=== PATIENT | male | born 1955 | race Caucasian/White ===

== ENCOUNTER → 2016-07-27 | Outpatient (CLI) | payer OTHER ==
--- NOTE | 2016-07-27 13:51 | Diagnostic Imaging Report ---
EXAMINATION: Three views of the right knee. INDICATION: Right knee pain. History of knee dislocation. FINDINGS: There are osteoarthritic changes, most prominent in the medial compartment, with prominent osteophytes and moderate joint space narrowing. There is mild joint space narrowing in the lateral compartment. The patellofemoral compartment is relatively spared. There is suggestion of a minimal suprapatellar effusion. Mild ossification along the distal quadriceps tendon insertion site is seen. No acute fracture, dislocation, or radiopaque foreign body. Prominent vascular calcifications are seen. IMPRESSION: Moderate osteoarthritic changes, particularly involving the medial compartment. Dictated by: Dictated on workstation # [id number]
== END ==
LOC: RAD 09:33
PROVIDERS: ATTEND Family Medicine
DX: M17.11 Unilateral primary osteoarthritis, right knee (principal)
CPT/HCPCS: 73562

== ENCOUNTER → 2017-10-05 | Outpatient (CLI) | payer OTHER ==
--- NOTE | 2017-10-05 11:02 | Diagnostic Imaging Report ---
EXAM: CT CHEST SCREENING WO INDICATION: 99-oxha-rmsn smoking history. Quit smoking six months ago. COMPARISON: None. FINDINGS: Advanced emphysematous changes in the lungs. There are a couple 0.4 cm solid pulmonary nodules in the right lower lobe. Calcified granulomas in both lungs. No endobronchial lesions. Moderate atherosclerotic calcifications including coronary and aortic. No mediastinal, hilar or axillary lymphadenopathy. Calcified hilar lymph nodes bilaterally. Normal heart size. No pericardial or pleural effusion. No pneumothorax. The visualized upper abdominal contents are grossly unremarkable. No acute osseous findings. IMPRESSION: 1. Solid pulmonary nodules in the right lower lobe measuring up to 0.4 cm. Recommend continued screening with low dose chest CT in 12 months. 2. Advanced emphysematous changes. 3. Evidence of prior granulomatous infection. 4. Moderate atherosclerotic calcifications including coronary. LungRads category: 2. Modifier: S. Please note that the low-dose technique of this chest CT is of non-diagnostic quality. This study is only intended for lung cancer screening of high risk patients. Dictated by: Dictated on workstation # [id number]
== END ==
LOC: RAD 10:13
PROVIDERS: ATTEND Nurse Practitioner Family
DX: R91.1 Solitary pulmonary nodule (principal); J43.9 Emphysema, unspecified; I25.10 Atherosclerotic heart disease of native coronary artery without angina pectoris; Z87.891 Personal history of nicotine dependence; Z86.19 Personal history of other infectious and parasitic diseases

== ENCOUNTER → 2017-11-22 | Emergency (ER) | payer OTHER ==
[~2017-11-22] VITALS: Ht 185.4 cm; Wt 86.6 kg
[~2017-11-22] MED LIST: CEPH500T PO; CEPHALEXIN 250 MG (KEFLEX) CAP PO STA; LIDOCAINE 1% INJ 20 ML 20 ML VIAL INJ ONE
--- OUTSIDE RECORDS SUMMARY | 2017-11-22 01:09 | XMS REPORT ---
Author Author ZAK MEDEIROS [facility] [address] Address [address] [place] [address] Care Team Providers Care Compensation Administrator Name Role Phone ZAK MEDEIROS Unavailable PROBLEMS Unknown Problems ALLERGIES Substance Reaction Event Type Date Status N.K.D.A. Unknown Non Drug Allergy Feb, Unknown SOCIAL HISTORY No smoking Hx information available PLAN OF CARE VITAL SIGNS Height 73 in 2016-03-10 Weight 192.2 lbs 2016-03-10 Temperature 98.8 degrees Fahrenheit 2016-03-10 Heart Rate 64 bpm 2016-03-10 Respiratory Rate 18 2016-03-10 BMI 25.35 kg/m2 2016-03-10 Blood pressure systolic 130 mmHg 2016-03-10 Blood pressure diastolic 78 mmHg 2016-03-10 MEDICATIONS Medication Instructions Dosage Frequency Start Date End Date Duration Status Zithromax Z-Eddie 250 MG Orally Once a day 2 tablets on the first day, then 1 tablet daily for 4 days 24h Feb, Feb, 5 day(s) Active RESULTS No Results PROCEDURES Procedure Date Ordered Related Diagnosis Body Site Office Visit, Est Pt., Level 3 Mar 10, 2016 IMMUNIZATIONS No Known Immunizations
--- NOTE | 2017-11-22 02:39 | ED Lower Extremity ---
General Chief Complaint: Laceration Stated Complaint: LEFT LITTLE TOE LAC Source: patient Exam Limitations: no limitations History of Present Illness Date Seen by Provider: Nov 22, 2017 Time Seen by Provider: 01:25 Initial Comments Here with report of laceration to the left fifth toe underneath. States he is walking out off his porch and got his toe caught on a brick on the corner and cut the underside of the toe. Denies bony injury. Tetanus is up-to-date within the last year. Onset: this morning (approximately one hour ago) Severity: mild Pain/Injury Location: left 5th toe Method of Injury: direct blow, incised Modifying Factors: Improves With Immobilization; Worse With Movement Allergies and Home Medications Allergies Coded Allergies: No Known Drug Allergies (Unverified , 11/22/17) Patient Home Medication List Home Medication List Reviewed: Yes Review of Systems Constitutional: see HPI; No chills, No fever Respiratory: no symptoms reported Cardiovascular: no symptoms reported Skin: see HPI, lesions Past Qgavofq-Xkgpiq-Zkynaf Hx Past Med/Social Hx: Reviewed Nursing Past Med/Soc Hx Patient Social History Alcohol Use: Occasionally Uses Recreational Drug Use: No Smoking Status: Never a Smoker Recent Foreign Travel: No Contact w/Someone Who Travel: No Past Medical History Surgeries: Yes Orthopedic Respiratory: No Cardiac: No Neurological: No Genitourinary: No Gastrointestinal: No Musculoskeletal: No Endocrine: No Cancer: No Family Medical History Reviewed Nursing Family Hx Physical Exam Vital Signs Capillary Refill : Height, Weight, BMI Height: '" Weight: lbs. oz. kg; BMI Method: General Appearance: WD/WN, no apparent distress Cardiovascular: regular rate, rhythm, no murmur Respiratory: lungs clear, normal breath sounds Feet: left foot pain, left foot soft tissue tenderness, left foot other (2 cm laceration at the base of the fifth toe on the undersurface in the crease. Extends from lateral to volar-medial aspect. Distal sensation and circulation intact.) Neurologic/Tendon: normal sensation, normal motor functions Neurologic/Psychiatric: alert, oriented x 3 Skin: normal color, warm/dry Procedures/Interventions Wound Location: Lower Extremities Other Wound Location Left foot fifth toe Wound Length (cm): 2 Wound's Depth, Shape: superficial, linear Wound Explored: contaminated Irrigated w/ Saline (ccs): 50 Betadine Prep?: Yes (Betasept) Anesthesia: 1% Lidocaine Volume Anesthetic (ccs): 4 Wound Debrided: minimal Suture: Prolene Suture Size: 5-0 Number of Sutures: 5 Layer Closure?: 1 Number Deep Layer Sutures: 0 Progress Cleaned with Betasept. Anesthetized with 1 percent lidocaine. Wound closed and covered with antibiotic ointment and dressing. Tolerated procedure well with no complications. Progress/Results/Core Measures Results/Orders My Orders Orders - PRISCA PEREZ MD Lidocaine 1% Inj 20 Ml (Xylocaine 1% Inj (11/22/17 01:30) Progress Progress Note : Progress Note Seen and evaluated. Wound cleaned with Betasept and saline and flushed with clean saline. Closed. Covered with antibiotic and dressing. Keflex 500 mg by mouth. Discharged home with return precautions. Patient verbalize understanding instructions and agreement with plan. Departure Impression Primary Impression: Laceration of left foot Qualified Codes: S91.312A - Laceration without foreign body, left foot, initial encounter Disposition: HOME, SELF-CARE Condition: Improved Departure-Patient Inst. Referrals: FLORES DUBOSE DO (PCP/Family) Primary Care Physician Patient Instructions: Laceration Repair With Stitches (DC) Add. Discharge Instructions: All discharge instructions reviewed with patient and/or family. Voiced understanding. Keep dressing in place until evening. Then remove and rinsed wound thoroughly. He may reapply antibiotic ointment and dressing to wound. Continue this twice daily for the next several days after that and then you may use dry dressing as needed for protection. It is important that he rest her foot over the next few days to decrease chance that sutures will be pulled out. Return in 10-14 days for suture removal. Take medications as directed. You may use ibuprofen and/or Tylenol/acetaminophen per package directions for pain control. Return for worse pain, fever, red streaks up the foot or leg, foul- smelling drainage or other concerns as needed. Scripts Cephalexin (Cephalexin) 500 Mg Tablet 500 MG PO QID, #20 TAB 0 Refills Prov: PRISCA PEREZ MD 11/22/17 PRISCA PEREZ MD Nov 22, 2017 02:39
[2017-11-22 03:12] VITALS: BP 172/93
== END | disposition home or self-care (01) ==
LOC: EDUNIT# 01:01 → ER 01:06
DX: S91.312A Laceration without foreign body, left foot, initial encounter (principal); W23.1XXA Caught, crushed, jammed, or pinched between stationary objects, initial encounter
CPT/HCPCS: 12041

== ENCOUNTER 2017-12-05 17:49 | Emergency (ER) | payer OTHER ==
[~2017-12-05] VITALS: Ht 182.9 cm; Wt 90.7 kg
[~2017-12-05 17:49] MED LIST changes: -CEPHALEXIN 250 MG (KEFLEX) CAP PO STA; -LIDOCAINE 1% INJ 20 ML 20 ML VIAL INJ ONE
[2017-12-05 18:20] VITALS: BP 120/67
== END 2017-12-05 18:21 | disposition home or self-care (01) ==
LOC: EDUNIT# 17:49 → ER 18:00
DX: S91.115D Laceration without foreign body of left lesser toe(s) without damage to nail, subsequent encounter (principal); X58.XXXD Exposure to other specified factors, subsequent encounter

== ENCOUNTER → 2018-10-05 | Outpatient (CLI) | payer OTHER ==
--- NOTE | 2018-10-05 12:08 | Diagnostic Imaging Report ---
INDICATION: Low back pain. Time of exam 10:40 a.m. FINDINGS: Three views of the lumbar spine were obtained. Curvature and alignment is normal prevertebral body heights are well-maintained. No acute compression fracture is seen. There is some degenerative disc disease at multiple levels with marginal spurring and variable disc space narrowing. Aorta is heavily calcified. IMPRESSION: Lumbar spondylosis. No acute bony abnormality is detected. Dictated by: Dictated on workstation # [id number]
--- NOTE | 2018-10-05 13:00 | Diagnostic Imaging Report ---
INDICATION: Low-back pain. Time of exam 10:40 a.m. FINDINGS: Multiple views of the sacrum and coccyx were obtained. Sacral arcuate lines appear to be intact. Sacrococcygeal alignment appears normal. No fractures are seen. IMPRESSION: No acute bony abnormality is detected. Dictated by: Dictated on workstation # [id number]
== END ==
LOC: RAD 10:19
PROVIDERS: ATTEND Family Medicine
DX: M47.816 Spondylosis without myelopathy or radiculopathy, lumbar region (principal); M53.3 Sacrococcygeal disorders, not elsewhere classified
CPT/HCPCS: 72100; 72220

== ENCOUNTER → 2018-10-25 | Outpatient (CLI) | payer OTHER ==
--- NOTE | 2018-10-25 15:16 | Diagnostic Imaging Report ---
TIME OF EXAM: 10/25/2018 11:44 AM REASON FOR EXAM: Lung cancer screening. LUNG CA SCREENING COMPARISON: 10/05/2017. TECHNIQUE: Low-Dose CT helical images obtained through the chest. CTDI vol: 2.22 mGy FINDINGS: Nodules: -- A) 4 mm, indeterminate noncalcified solid right lower lobe nodule (image 124, series 3) -- B) 3 mm, indeterminate noncalcified solid right lower lobe nodule (image 127, series 3) -- C) 4 mm, indeterminate noncalcified solid nodule with surrounding ground-glass opacities in the right middle lobe nodule (image 107, series 3) Lungs: Lung volumes are normal. Centrilobular emphysema is seen throughout the lungs, greatest in the apices. No evidence of pulmonary fibrosis is present. There is no appreciable bronchiectasis. No pulmonary mass or consolidation is present. No central endoluminal airway lesion is seen. Heart and Mediastinum: Heart size is within normal limits. Small amount of coronary calcifications are present. Aortic atherosclerosis is present without aneurysm. No pericardial effusion is present. Mildly prominent mediastinal lymph nodes are again noted. No axillary, supraclavicular, internal mammary, or hilar adenopathy is present by CT size criteria. Normal size and attenuation of the visualized thyroid gland. Pleura: Normal pleural spaces. No effusion or pneumothorax. No pleural nodularity or mass. Abdomen: Included views of the upper abdomen demonstrate no acute abnormality. The liver demonstrates a nodular contour. Bones and soft tissues: Regional skeletal and soft tissue structures are age-appropriate. IMPRESSION: 1. New 4 mm solid nodule with surrounding ground-glass opacities in the right middle lobe. This most likely represents inflammatory or infectious etiology. However, six-month followup chest CT is recommended to document resolution or stability. Additional millimetric pulmonary nodules are unchanged. 2. No thoracic lymphadenopathy. 3. Nodular contour of the liver, which can be seen with cirrhosis. Recommend correlation with LFTs and ultrasound or CT of the liver if clinically indicated. Result code: Category 3: Probably Benign. Follow up: 6-month LDCT. Dictated by: Dictated on workstation # [id number]
== END ==
LOC: RAD 10:51
PROVIDERS: ATTEND Nurse Practitioner Family
DX: Z12.2 Encounter for screening for malignant neoplasm of respiratory organs (principal); R91.1 Solitary pulmonary nodule; K76.89 Other specified diseases of liver; Z87.891 Personal history of nicotine dependence

== ENCOUNTER 2018-11-08 05:36 | Outpatient (CLI) | payer OTHER ==
[~2018-11-08] VITALS: Ht 185.4 cm; Wt 84.0 kg
[2018-11-13] MEDS ORDERED: IBUP-1779 PO (09:25)
[2018-11-13] MEDS ORDERED: MULT-974 PO (09:25)
[2018-11-13] MEDS ORDERED: ASPI-586 PO (09:25)
== END 2018-11-13 09:26 | disposition home or self-care (01) ==
LOC: PREOP 05:36
PROVIDERS: ATTEND Surgery
DX: Z01.818 Encounter for other preprocedural examination (principal)

== ENCOUNTER 2018-11-15 08:19 | Day surgery (SDC) | payer OTHER ==
[~2018-11-15] VITALS: Ht 185.5 cm; Wt 84.0 kg
[2018-11-15] VITALS (14 sets, daily range): BP systolic 116–167; BP diastolic 59–88
[~2018-11-15 08:19] MED LIST changes: +ASPI-586 PO; +IBUP-1779 PO; +MULT-974 PO
[2018-11-15] MEDS ORDERED: NS IV 500 ML 500 ML ONE (08:26)
[2018-11-15] MEDS ORDERED: NS IV 500 ML 500 ML IV PRN (08:27)
[2018-11-15] MEDS ORDERED: LIDOCAINE JELLY 2% 6 ML SYRINGE MM PRN (08:30)
[2018-11-15] MEDS ORDERED: MIDAZOLAM 2 MG/2 ML (VERSED) VIAL IVP ONE (08:30)
[2018-11-15] MEDS ORDERED: fentaNYL INJECTION 100 MCG/2 ML AMP IVP ONE (08:30)
[2018-11-15] MEDS ORDERED: MIDAZOLAM 2 MG/2 ML (VERSED) VIAL ONE ×4 (09:46→10:36)
[2018-11-15] MEDS ORDERED: LIDOCAINE JELLY 2% 6 ML SYRINGE ONE (09:46)
[2018-11-15] MEDS ORDERED: fentaNYL INJECTION 100 MCG/2 ML AMP ONE (09:46)
[2018-11-15] MEDS ORDERED: ACETAMINOPHEN 325 MG TABLET PO PRN (10:15)
[2018-11-15] MEDS ORDERED: morphine INJ 10 MG/ML 1ML (SYR OR VIAL) IVP PRN ×2 (10:15)
[2018-11-15] MEDS ORDERED: ONDANSETRON 4 MG/2 ML (SDV) Z0FRAN IVP PRN (10:15)
[2018-11-15] MEDS ORDERED: HYDROcodone/APAP 5 MG/325 MG (LORTAB) TAB PO PRN (10:15)
--- NOTE | 2018-11-15 10:15 | Progress Note-Pre Operative ---
Pre-Operative Progress Note H&P Reviewed The H&P was reviewed, patient examined and no changes noted. Date Seen by Provider: Nov 15, 2018 Time Seen by Provider: : Date H&P Reviewed: Nov 15, 2018 Time H&P Reviewed: :30 Pre-Operative Diagnosis: screening EFRAIN Randolph MD Nov 15, 2018 10:15
--- NOTE | 2018-11-15 10:15 | Conscious Sedation/ASA ---
Conscious Sedation Pre-Proced Time 09:30 ASA Score 2 For ASA 3 and 4: Consider anesthesia and medical clearance. Also, for patients with a history of failed moderate sedation consider anesthesia. Airway Lungs Heart ASA score ASA 1: a normal healthy patient ASA 2: a patient with a mild systemic disease (mid diabetes, controlled hypertension, obesity ASA 3: a patient with a severe systemic disease that limits activity (angina, COPD, prior Myocardial infarction) ASA 4: a patient with an incapacitating disease that is a constant threat to life (CHF, renal failure) ASA 5: a moribund patient not expected to survive 24 hrs. (ruptured aneurysm) ASA 6: a declared brain- patient whose organs are being harvested. For emergent operations, add the letter E after the classification Mallampati Classification Grade 2 Sedation Plan Analgesia, Amnesia, Plan communicated to team members, Discussed options with patient/fam, Discussed risks with patient/fam The patient is an appropriate candidate to undergo the planned procedure, sedation, and anesthesia. The patient immediately re-assessed prior to indication. EFRAIN LUU MD Nov 15, 2018 10:15
--- NOTE | 2018-11-15 10:16 | Discharge Inst-Surgical ---
D/C Lap Instructions-JUS Follow Up Activity as tolerated High Fiber Diet 25g or more per day Avoid Alcohol, Caffeine, Spicy [place] and Acid foods. Drink 64 fluid oz or more of fluids per day. Symptoms to Report: Fever over 101 degree F, Nausea/Vomiting If any problems/questions: Contact your physician or go to Emergency Room EFRAIN LUU MD Nov 15, 2018 10:16
--- NOTE | 2018-11-15 11:23 | Progress Note-Post Operative ---
Post-Operative Progess Note Surgeon (s)/Public Service Officer (s) Surgeon EFRAIN LUU MD Public Service Officer: none Pre-Operative Diagnosis screening colo Post-Operative Diagnosis chronic stage 2 ext and int hemorrhoids, chronic inclusion cyst anus, mild sigmoid diverticulosis. Procedure & Operative Findings Date of Procedure 11/15/18 Procedure Performed/Findings colonoscopy Anesthesia Type cs Estimated Blood Loss Estimated blood loss (mL): minimal Specimens/Packing Specimens Removed none EFRAIN LUU MD Nov 15, 2018 11:23
--- NOTE | 2018-11-15 20:11 | OPERATIVE REPORT ---
DATE OF SERVICE: 11/15/2018 ATTENDING PRIMARY CARE PHYSICIAN: Kaya Aggarwal DO PREOPERATIVE DIAGNOSIS: Hemoccult positive stools, screening colonoscopy. POSTOPERATIVE DIAGNOSES: Mild chronic stage II external and internal hemorrhoids. Chronic inclusion cyst in the perianal region. No redness, erythema or drainage. Prostate gland was palpable and appeared normal. Mild sigmoid diverticulosis. PROCEDURE: Colonoscopy. SURGEON: Efrain Luu MD ANESTHESIA: Conscious sedation. ESTIMATED BLOOD LOSS: Minimal. FINDINGS: Mild chronic stage II external and internal hemorrhoids. Chronic inclusion cyst in the perianal region. No redness, erythema or drainage. Prostate gland was palpable and appeared normal. Mild sigmoid diverticulosis. DISPOSITION: The patient tolerated the procedure well. INDICATIONS: The patient is a 63-year-old male in need of a screening colonoscopy. He has not had a colonoscopy up to this point in his life. He did have a Cologuard test, which was positive for heme positive stools. He also does report noticing some small amounts of self-limited bright red blood per rectum. After a bowel movement; however, this is a very minimal amount and stopped on its own. DESCRIPTION OF PROCEDURE: The patient was brought to the endoscopy suite, laid in left lateral decubitus position. After adequate IV pain and sedative medications and conscious sedation anesthesia, a digital rectal examination was performed. There were several chronic inclusion cysts around the perianal region from ingrown hairs. There is no current redness, erythema or any drainage. Normal sphincter tone was felt and there were no palpable masses. Prostate gland was palpable and appeared normal. The endoscope was then intubated to the anus and rectum gently insufflated. The endoscope was then advanced to the valves of [place] and rectum with no polyps or any neoplasms identified. In the sigmoid colon, a few isolated small diverticula identified with no inflammatory changes to indicate any diverticulitis. The endoscope was then advanced to the remainder of the descending, transverse and ascending colon to the cecum. These segments were normal. There were no polyps or any neoplasms identified. The endoscope was then slowly withdrawn while taking a second look and suctioning of residual air with no additional findings. The patient tolerated the procedure well. We will recommend a high fiber diet with 30 grams of fiber daily as well as significant amounts of water to promote soft stools on a daily basis. He is to have soft stools and not to strain upon defecation. If he does have some irritation we will recommend Sitz baths q.i.d. as well as after every bowel movement. He does not need another colonoscopy for another 10 years if he is asymptomatic. Job ID: [id number] DocumentID: [id number] Dictated Date: 11/15/2018 10:48:44 Horse Racetrack Manager Date: 11/15/2018 20:10:54 Dictated By: EFRAIN LUU MD
== END 2018-11-15 11:30 | disposition home or self-care (01) ==
LOC: ENDO 08:19
PROVIDERS: ATTEND Surgery
DX: K64.1 Second degree hemorrhoids (principal); K57.30 Diverticulosis of large intestine without perforation or abscess without bleeding; L72.0 Epidermal cyst; K64.8 Other hemorrhoids; R19.5 Other fecal abnormalities; Z79.82 Long term (current) use of aspirin; Z79.899 Other long term (current) drug therapy

== ENCOUNTER 2021-08-15 14:23 | Emergency (ER) | payer OTHER ==
[2021-08-15 14:56] VITALS: BP 176/96
[2021-08-15 15:08] LABS: BILIRUBIN,URINE NEGATIVE (NEGATIVE); CLARITY,URINE CLEAR; COLOR,URINE YELLOW; GLUCOSE, URINE (UA) NEGATIVE (NEGATIVE); KETONES,URINE NEGATIVE (NEGATIVE); LEUKOCYTE ESTERASE ,URINE NEGATIVE (NEGATIVE); NITRITE,URINE NEGATIVE (NEGATIVE); PROTEIN,URINE NEGATIVE (NEGATIVE)
[2021-08-15 15:16] LABS: BACTERIA,URINE NEGATIVE /HPF; WBC,URINE 0-2 /HPF
[2021-08-15] MEDS ORDERED: NS IV 1000 ML 1,000 ML IV STA (15:17)
--- NOTE | 2021-08-15 15:23 | ED GI ---
General Chief Complaint: Abdominal/GI Problems Stated Complaint: ABD PAIN Source of Information: Patient Exam Limitations: No Limitations History of Present Illness Date Seen by Provider: Aug 15, 2021 Time Seen by Provider: 15:19 Initial Comments This is a 66-year-old male with history of hypertension and COPD that presents to the emergency room for evaluation of epigastric and right upper quadrant abdominal pain. He has had symptoms for approximately 1 week and he thought his symptoms would improve but they have not. He states that his pain is currently a sharp 7 out of 10 and it does not radiate. He has had some mild nausea with it but no vomiting or diarrhea. Timing/Duration: 1 Week Severity/Quality: Cramping, Sharp Allergies and Home Medications Allergies Coded Allergies: No Known Drug Allergies (Unverified , 11/13/18) Patient Home Medication List Home Medication List Reviewed: Yes Aspirin (Aspir 81) 81 Mg Tablet.dr, 81 MG PO DAILY, (Reported) Entered as Reported by: SONNY BRIONES on 11/13/18 09 Hydrocodone/Acetaminophen (Hydrocodone-Acetamin 7.5-325) 7.5 Mg-325 Mg Tablet, 1 EACH PO Q6H Prescribed by: Tejinder Hopkins on 08/15/21 1752 Ibuprofen (Ibuprofen) 400 Mg Tablet, 400 MG PO Q6H PRN for PAIN, (Reported) Entered as Reported by: SONNY BRIONES on 11/13/18 09 Multivitamin (Multi-Vitamin Daily) 1 Each Tablet, 1 EACH PO DAILY, (Reported) Entered as Reported by: SONNY BRIONES on 11/13/18 09 Review of Systems Review of Systems Constitutional: no symptoms reported EENTM: No Symptoms Reported Respiratory: No Symptoms Reported Cardiovascular: No Symptoms Reported Gastrointestinal: Abdominal Pain Skin: no symptoms reported Psychiatric/Neurological: No Symptoms Reported Endocrine: No Symptoms Reported Past Negkchu-Gqecqo-Kzzhiv Hx Patient Social History Tobacco Use?: No Smoking Status: Former Smoker Use of E-Cig and/or Vaping dev: No Substance use?: No Seasonal Allergies Seasonal Allergies: Yes Past Medical History Surgeries: Yes (FINGER) Orthopedic Respiratory: Yes Chronic Bronchitis Cardiac: No Neurological: No Genitourinary: No Gastrointestinal: Yes (HX HEP C) Gastroesophageal Reflux, Hepatitis Musculoskeletal: Yes Chronic Back Pain Endocrine: No HEENT: Yes (GLASSES) Cancer: No Psychosocial: No Integumentary: No Blood Disorders: No Adverse Reaction/Blood Tranf: No (N/A) Physical Exam Vital Signs Vital Signs - First Documented 08/15/21 14:56 Temp 36.8 Pulse 107 Resp 16 B/P (MAP) 176/96 (122) Capillary Refill : Height/Weight/BMI Height: 6'0" Weight: 200lbs. oz. [id number]; 24.41 BMI Method:Estimated General Appearance: WD/WN, no apparent distress HEENT: PERRL/EOMI, normal ENT inspection, TMs normal Neck: non-tender, full range of motion Respiratory: chest non-tender, lungs clear Cardiovascular: regular rate, rhythm Gastrointestinal: tenderness (Tenderness to palpation to epigastric and right upper quadrant) Neurologic/Psychiatric: theater technician II-XII nml as tested, oriented x 3 Skin: normal color, warm/dry Procedures/Interventions Suture Size: 5-0 Progress/Results/Core Measures Results/Orders Lab Results Laboratory Tests Test 08/15/21 15:02 08/15/21 16:03 Range/Units Urine Color YELLOW Urine Clarity CLEAR Urine pH 6.0 5-9 Urine Specific Dudley 1.010 L 1.016-1.022 Urine Protein NEGATIVE NEGATIVE Urine Glucose (UA) NEGATIVE NEGATIVE Urine Ketones NEGATIVE NEGATIVE Urine Nitrite NEGATIVE NEGATIVE Urine Bilirubin NEGATIVE NEGATIVE Urine Urobilinogen 0.2 < = 1.0 MG/DL Urine Leukocyte Esterase NEGATIVE NEGATIVE Urine RBC (Auto) NEGATIVE NEGATIVE Urine RBC NONE /HPF Urine WBC 0-2 /HPF Urine Squamous Epithelial Cells NONE /HPF Urine Renal Epithelial Cells NONE /HPF Urine Crystals NONE /LPF Urine Bacteria NEGATIVE /HPF Urine Casts NONE /LPF Urine Mucus NEGATIVE /LPF Urine Culture Indicated NO White Blood Count 9.1 4.3-11.0 10^3/uL Red Blood Count 4.79 4.30-5.52 10^6/uL Hemoglobin 14.2 13.3-17.7 g/dL Hematocrit 41 40-54 % Mean Corpuscular Volume 85 80-99 fL Mean Corpuscular Hemoglobin 30 25-34 pg Mean Corpuscular Hemoglobin Concent 35 32-36 g/dL Red Cell Distribution Width 14.6 H 10.0-14.5 % Platelet Count 188 130-400 10^3/uL Mean Platelet Volume 9.5 9.0-12.2 fL Immature Granulocyte % (Auto) 0 % Neutrophils (%) (Auto) 55 42-75 % Lymphocytes (%) (Auto) 28 12-44 % Monocytes (%) (Auto) 12 0-12 % Eosinophils (%) (Auto) 4 0-10 % Basophils (%) (Auto) 1 0-10 % Neutrophils # (Auto) 5.0 1.8-7.8 10^3/uL Lymphocytes # (Auto) 2.5 1.0-4.0 10^3/uL Monocytes # (Auto) 1.1 H 0.0-1.0 10^3/uL Eosinophils # (Auto) 0.4 H 0.0-0.3 10^3/uL Basophils # (Auto) 0.1 0.0-0.1 10^3/uL Immature Granulocyte # (Auto) 0.0 0.0-0.1 10^3/uL Sodium Level 127 L 135-145 MMOL/L Potassium Level 4.1 3.6-5.0 MMOL/L Chloride Level 96 L 98-107 MMOL/L Carbon Dioxide Level 20 L 21-32 MMOL/L Anion Gap 11 5-14 MMOL/L Blood Urea Nitrogen 13 7-18 MG/DL Creatinine 0.82 0.60-1.30 MG/DL Estimat Glomerular Filtration Rate 96 BUN/Creatinine Ratio 16 Glucose Level 100 70-105 MG/DL Calcium Level 8.9 8.5-10.1 MG/DL Corrected Calcium 9.1 8.5-10.1 MG/DL Total Bilirubin 1.3 H 0.1-1.0 MG/DL Aspartate Amino Transf (AST/SGOT) 91 H 5-34 U/L Alanine Aminotransferase (ALT/SGPT) 53 0-55 U/L Alkaline Phosphatase 152 H 40-136 U/L Total Protein 7.4 6.4-8.2 GM/DL Albumin 3.7 3.2-4.5 GM/DL Lipase 47 8-78 U/L My Orders Orders - AIDAN HOPKINS Ed Iv/Invasive Line Start (08/15/21 15:17) Cbc With Automated Diff (08/15/21 15:17) Comprehensive Metabolic Panel (08/15/21 15:17) Lipase (08/15/21 15:17) Ns Iv 1000 Ml (Sodium Chloride 0.9%) (08/15/21 15:17) Hydromorphone Injection (Dilaudid Inject (08/15/21 15:30) Ondansetron Injection (Zofran Injectio (08/15/21 15:30) Ct Abdomen/Pelvis W (08/15/21 16:01) Iohexol Injection (Omnipaque 350 Mg/Ml 1 (08/15/21 16:15) Received Contrast (Hold Metformin- Contr (08/15/21 16:15) Ns (Ivpb) (Sodium Chloride 0.9% Ivpb Bag (08/15/21 16:15) Medications Given in ED Current Medications Medications Dose Ordered Sig/Grecia Route Start Time Stop Time Status Last Admin Dose Admin Hydromorphone HCl 0.5 mg ONCE ONCE IV 08/15/21 15:30 08/15/21 15:31 DC 08/15/21 16:04 0.5 MG Iohexol 100 ml ONCE ONCE IV 08/15/21 16:15 08/15/21 16:16 DC 08/15/21 16:43 100 ML Ondansetron HCl 4 mg ONCE ONCE IVP 08/15/21 15:30 08/15/21 15:31 DC 08/15/21 16:05 4 MG Sodium Chloride 100 ml ONCE ONCE IV 08/15/21 16:15 08/15/21 16:16 DC 08/15/21 16:43 80 ML Vital Signs/I&O 08/15/21 14:56 Temp 36.8 Pulse 107 Resp 16 B/P (MAP) 176/96 (122) Departure Communication (Admissions) Patient's labwork is reassuring. CT shows concerning lesions for metastatic cancer. Also possible trace linear portal venous thrombus. We will not initiate blood thinner because patient will likely need immediate biopsy. Patient will be discharged with pain medication and close f/u with oncology. I spoke to Dr. Alvarez and he will see the patient on Tuesday at 11:00am for oncology work up. Impression Primary Impression: RUQ abdominal mass Additional Impression: RUQ abdominal pain Disposition: HOME, SELF-CARE Condition: Stable Departure-Patient Inst. Decision time for Depature: 17:21 Referrals: SAUL HIGUERA (Family) Primary Care Physician ISIS ALVAREZ MD Add. Discharge Instructions: Please see Dr. Alvarez with the oncology team on Tuesday at 11am. Return to the ER with any severe changes or worsening of symptoms. All discharge instructions reviewed with patient and/or family. Voiced understanding. Scripts Hydrocodone/Acetaminophen (Hydrocodone-Acetamin 7.5-325) 7.5 Mg-325 Mg Tablet 1 EACH PO Q6H for Pain, #20 TAB Prov: AIDAN HOPKINS 08/15/21 AIDAN HOPKINS Aug 15, 2021 15:23
[2021-08-15] MEDS ORDERED: HYDROmorphone 2 MG/ML VIAL (DILAUDID) IV ONE (15:30)
[2021-08-15] MEDS ORDERED: ONDANSETRON 4 MG/2 ML (SDV) Z0FRAN IVP ONE (15:30)
[2021-08-15 16:11] LABS: BASOPHILS # (AUTO) 0.1 10^3/uL (0.0-0.1); BASOPHILS % (AUTO) 1 % (0-10); EOSINOPHILS # (AUTO) 0.4 10^3/uL (0.0-0.3); EOSINOPHILS % (AUTO) 4 % (0-10); HEMATOCRIT 41 % (40-54); HEMOGLOBIN 14.2 g/dL (13.3-17.7); LYMPHOCYTES # (AUTO) 2.5 10^3/uL (1.0-4.0); LYMPHOCYTES % (AUTO) 28 % (12-44); MEAN CORPUSCULAR HEMOGLOBIN 30 pg (25-34); MEAN CORPUSCULAR HGB CONC 35 g/dL (32-36); MEAN CORPUSCULAR VOLUME 85 fL (80-99); MEAN PLATELET VOLUME 9.5 fL (9.0-12.2); MONOCYTES # (AUTO) 1.1 10^3/uL (0.0-1.0); MONOCYTES % (AUTO) 12 % (0-12); NEUTROPHILS % (AUTO) 55 % (42-75); PLATELET COUNT 188 10^3/uL (130-400); WHITE BLOOD COUNT 9.1 10^3/uL (4.3-11.0)
[2021-08-15] MEDS ORDERED: HOLD METFORMIN - RECEIVED CONTRAST 20 ML VIAL IV SCH (16:15)
[2021-08-15] MEDS ORDERED: NS 100 ML (IVPB) BAG IV ONE (16:15)
[2021-08-15] MEDS ORDERED: IOHEXOL 350 MG/ML 100 ML (OMNIPAQUE 350) VIAL IV ONE (16:15)
[2021-08-15 16:23] LABS: ALBUMIN 3.7 GM/DL (3.2-4.5); POTASSIUM 4.1 MMOL/L (3.6-5.0)
[2021-08-15 16:24] LABS: CALCIUM 8.9 MG/DL (8.5-10.1)
[2021-08-15 16:25] LABS: TOTAL PROTEIN 7.4 GM/DL (6.4-8.2)
[2021-08-15 16:27] LABS: BILIRUBIN,TOTAL 1.3 MG/DL (0.1-1.0)
[2021-08-15 16:29] LABS: CREATININE SERUM 0.82 MG/DL (0.60-1.30)
--- NOTE | 2021-08-15 17:05 | Diagnostic Imaging Report ---
PROCEDURE: CT abdomen and pelvis with contrast. TECHNIQUE: Multiple contiguous axial images were obtained through the abdomen and pelvis after administration of intravenous contrast. Auto Exposure Controls were utilized during the CT exam to meet ALARA standards for radiation dose reduction. All CT scans use one or more of the following dose optimizing techniques: automated exposure control, MA and/or KvP adjustment based on patient size and exam type or iterative reconstruction. INDICATION: Right upper quadrant pain. COMPARISON: Correlation made with right upper quadrant ultrasound from August 20, 2015. FINDINGS: The lung bases demonstrate no finding of pneumonia or edema. There is a small granuloma within the lingula. There is cardiomegaly. There is no pericardial collection. The liver now demonstrates innumerable liver masses. Some of these are solid and hypervascular and some of these appear to be centrally necrotic. The largest mass is in a subcapsular location within the high right hepatic dome and has internal calcifications and a small adjacent subcapsular hematoma. There is no current active contrast extravasation evident. The liver has a cirrhotic morphology. The portal veins are patent though there is a suggestion that there could be some minimal thrombus within the main portal vein. The gallbladder is nondistended without radiodense gallstone. There is no biliary dilatation. There is extensive necrotic appearing adenopathy present. There is a necrotic lymph node which is posterior to the diaphragm along the descending thoracic aorta and there are large necrotic lymph nodes within the central mesentery and patti caval region. A conglomerate of lymph nodes measures up to 10.7 x 6.1 cm in axial dimensions with numerous necrotic lymph nodes demonstrated in an aortocaval location and periaortic location throughout the retroperitoneum. There is mild main pancreatic ductal dilatation without definable pancreatic mass. The spleen is unremarkable. There are gastroesophageal and splenic varices. There is no adrenal mass. The kidneys enhance normally and are nonobstructed. There is no finding of bowel obstruction. There is diverticulosis without evidence of diverticulitis. There is moderate stool within the colon. There is no definable colonic mass. There is no free fluid within the pelvis. The bladder is nondistended. There is advanced aortic atherosclerosis. There are degenerative changes present within the spine. There is no identifiable lytic or blastic lesion. IMPRESSION: 1. Interval development of widespread hepatic masses most suggestive of marked metastatic disease. Many of the lesions are hypervascular but some are also centrally necrotic. A large subcapsular lesion within the dome of the diaphragm has internal calcifications and there is a small adjacent subcapsular hematoma. There is no current active contrast extravasation. 2. Cirrhotic morphology of the liver with gastroesophageal and splenic varices. 3. Extensive metastatic adenopathy within the portacaval region within the chest along the descending thoracic aorta and throughout the retroperitoneum compatible with metastatic disease. 4. No definitive lytic or blastic osseous lesion. 5. No findings of bowel obstruction or evidence of a colonic mass. 6. Mild pancreatic ductal dilatation without evidence to suggest a pancreatic mass. 7. Possible trace linear thrombus within the main portal vein. 8. As there is no definitive primary neoplasm evident on this examination consider imaging of the chest to evaluate for the possibility of a lung cancer. Findings were called to the [facility] emergency department at time of dictation. Dictated by: Dictated on workstation # [id number]
[2021-08-15] MEDS ORDERED: HYDR-3817 PO (17:52)
== END 2021-08-15 17:50 | disposition home or self-care (01) ==
LOC: EDUNIT# 14:23 → ER 14:24
DX: R19.01 Right upper quadrant abdominal swelling, mass and lump (principal); R10.11 Right upper quadrant pain; Z87.891 Personal history of nicotine dependence
CPT/HCPCS: 36415; 74177; 80053; 81000; 83690; 85025

== ENCOUNTER 2021-08-17 10:53 | Outpatient (RCR) | payer OTHER ==
[~2021-08-17 10:53] MED LIST changes: +HYDR-3817 PO
[2021-08-17 13:43] LABS: ALBUMIN 4.1 GM/DL (3.2-4.5); BILIRUBIN,TOTAL 1.1 MG/DL (0.1-1.0); CALCIUM 9.2 MG/DL (8.5-10.1); CREATININE SERUM 0.87 MG/DL (0.60-1.30); POTASSIUM 4.1 MMOL/L (3.6-5.0); TOTAL PROTEIN 8.1 GM/DL (6.4-8.2)
[2021-08-19] MEDS ORDERED: METO50TA7 PO (12:05)
[2021-08-20] MEDS ORDERED: HYDR-3820 PO (07:59)
[2021-08-20] MEDS ORDERED: RT-ALBUINH INH (07:59)
== END 2021-08-20 | disposition home or self-care (01) ==
LOC: ONC 10:53
PROVIDERS: ATTEND Internal Medicine
DX: C80.1 Malignant (primary) neoplasm, unspecified (principal); K74.60 Unspecified cirrhosis of liver; I87.2 Venous insufficiency (chronic) (peripheral); R16.0 Hepatomegaly, not elsewhere classified
CPT/HCPCS: 80053; 82378; 86301; G0463; 99204

== ENCOUNTER → 2021-08-19 | Outpatient (CLI) | payer OTHER ==
[~2021-08-19] VITALS: Ht 182 cm; Wt 84.0 kg
[~2021-08-19] MED LIST changes: +HYDR-3820 PO; +METO50TA7 PO; +RT-ALBUINH INH
== END | disposition home or self-care (01) ==
LOC: PREOP 05:37
PROVIDERS: ATTEND Surgery
DX: Z01.818 Encounter for other preprocedural examination (principal)

== ENCOUNTER 2021-08-20 07:07 | Day surgery (SDC) | payer OTHER ==
[2021-08-20] VITALS (11 sets, daily range): BP systolic 116–149; BP diastolic 81–100
[~2021-08-20] VITALS: Ht 184.4 cm; Wt 84.0 kg
[~2021-08-20 07:07] MED LIST changes: -HYDR-3820 PO; -RT-ALBUINH INH
[2021-08-20 07:40] LABS: HEMATOCRIT 40 % (40-54); HEMOGLOBIN 13.6 g/dL (13.3-17.7); MEAN CORPUSCULAR HEMOGLOBIN 30 pg (25-34); MEAN CORPUSCULAR HGB CONC 34 g/dL (32-36); MEAN CORPUSCULAR VOLUME 87 fL (80-99); MEAN PLATELET VOLUME 9.8 fL (9.0-12.2); PLATELET COUNT 192 10^3/uL (130-400); WHITE BLOOD COUNT 10.1 10^3/uL (4.3-11.0)
[2021-08-20 07:57] LABS: PROTHROMBIN TIME PATIENT 13.7 SEC (12.2-14.7)
[2021-08-20] MEDS ORDERED: HYDR-3820 PO (07:59)
[2021-08-20] MEDS ORDERED: RT-ALBUINH INH (07:59)
[2021-08-20] MEDS ORDERED: NS IV 1000 ML 1,000 ML IV STA (08:08)
[2021-08-20] MEDS ORDERED: fentaNYL INJ 100 MCG/2 ML AMP IVP ONE (08:15)
[2021-08-20] MEDS ORDERED: LIDOCAINE 1% INJ 20 ML VIAL INJ ONE (08:15)
[2021-08-20] MEDS ORDERED: MIDAZOLAM 2 MG/2 ML (VERSED) VIAL IVP ONE (08:15)
--- NOTE | 2021-08-20 10:10 | Pre-Op Note & Conscious Sedat ---
Pre-Operative Progress Note H&P Reviewed The H&P was reviewed, patient examined and no changes noted. Date H&P Reviewed: Aug 20, 2021 Time H&P Reviewed: 09:00 Pre-Op Diagnosis: liver mass Conscious Sedation Pre-Proced Time 09:00 ASA Score 2 For ASA 3 and 4: Consider anesthesia and medical clearance. Also, for patients with a history of failed moderate sedation consider anesthesia. Airway Lungs Heart ASA score ASA 1: a normal healthy patient ASA 2: a patient with a mild systemic disease (mid diabetes, controlled hypertension, obesity ASA 3: a patient with a severe systemic disease that limits activity (angina, COPD, prior Myocardial infarction) ASA 4: a patient with an incapacitating disease that is a constant threat to life (CHF, renal failure) ASA 5: a moribund patient not expected to survive 24 hrs. (ruptured aneurysm) ASA 6: a declared brain- patient whose organs are being harvested. For emergent operations, add the letter E after the classification Mallampati Classification Grade 2 Sedation Plan Analgesia, Amnesia, Plan communicated to team members, Discussed options with patient/fam, Discussed risks with patient/fam The patient is an appropriate candidate to undergo the planned procedure, sedation, and anesthesia. The patient immediately re-assessed prior to indication. CHAY SHIRLEY MD Aug 20, 2021 10:10
[2021-08-20] MEDS ORDERED: HYDROcodone/APAP 5 MG/325 MG (LORTAB) TAB PO PRN (10:15)
--- NOTE | 2021-08-20 10:45 | Diagnostic Imaging Report ---
INDICATION: MALIGNANT TUMOR OF UNKNOWN ORIGIN PROCEDURE: The patient presents for a CT-guided liver biopsy. TECHNIQUE: All CT scans use one or more of the following dose optimizing techniques: automated exposure control, MA and/or KvP adjustment based on patient size and exam type or iterative reconstruction. The patient was brought to the CT suite, placed on the table in the supine position. Axial imaging through the abdomen was performed to evaluate appropriate entry site. The right lateral lower abdomen was prepped and draped in the usual sterile fashion. A small amount of 1% lidocaine was utilized for local anesthesia. The procedure was performed utilizing conscious sedation with radiology nursing and constant patient monitoring. The patient was given a total of 100 mcg of fentanyl intravenously and 1 mg Versed intravenously. Total procedure time is approximately 9 minutes. 18-gauge coaxial Temno needle was advanced and placed with its tip along the margin of the large mass in the inferior right lobe of the liver. Four core biopsies were obtained. A blood patch was injected during needle removal. Hemostasis was obtained using manual compression. Follow-up post procedure imaging shows no complicating features. The patient tolerated the procedure well and left the department in stable condition. IMPRESSION: Successful CT-guided liver mass biopsy utilizing conscious sedation. Pathology results are currently pending. Dictated by: Dictated on workstation # [id number]
== END 2021-08-20 12:08 | disposition home or self-care (01) ==
LOC: RAD 07:07 → SDC 09:58 → RAD 12:08
PROVIDERS: ATTEND Internal Medicine
DX: C22.0 Liver cell carcinoma (principal); Z87.891 Personal history of nicotine dependence
CPT/HCPCS: 36415; 77012; 85027; 85610; 85730; 88307; 88313; 88341; 88342; 99156

== ENCOUNTER 2021-08-26 11:46 | Day surgery (SDC) | payer OTHER ==
[~2021-08-26] VITALS: Ht 185.4 cm; Wt 84.0 kg
[2021-08-26] VITALS (7 sets, daily range): BP systolic 140–165; BP diastolic 88–99
[~2021-08-26 11:46] MED LIST changes: +HYDR-3820 PO; +RT-ALBUINH INH
[2021-08-26] MEDS ORDERED: ceFAZolin 2 GM IV Premixed 50 ML ONE (12:29)
[2021-08-26] MEDS ORDERED: ceFAZolin 2 GM IV Premixed 50 ML IV ONE (12:45)
[2021-08-26] MEDS ORDERED: LACTATED RINGERS 1,000 ML IV PRN (12:45)
[2021-08-26] MEDS ORDERED: 0.9% SODIUM CHLORIDE PF INJ 20 ML VIAL ONE (12:51)
[2021-08-26] MEDS ORDERED: LIDOCAINE/EPI 2% 1:100,00 (XYLOCAINE) 20 ML VIAL ONE (12:52)
[2021-08-26] MEDS ORDERED: HEParin (CENTRAL IV FLUSH) 500 UNIT/5 ML SYR ONE (12:52)
--- NOTE | 2021-08-26 12:53 | Progress Note-Pre Operative ---
Pre-Operative Progress Note H&P Reviewed The H&P was reviewed, patient examined and no changes noted. Time Seen by Provider: 12:52 Date H&P Reviewed: Aug 26, 2021 Time H&P Reviewed: 12:52 Pre-Operative Diagnosis: Venous Insufficiency, Liver CA EDITA BRICENO DO Aug 26, 2021 12:53
[2021-08-26] MEDS ORDERED: ONDANSETRON 4 MG/2 ML (SDV) Z0FRAN ONE (13:10)
[2021-08-26] MEDS ORDERED: fentaNYL INJ 100 MCG/2 ML AMP ONE (13:10)
[2021-08-26] MEDS ORDERED: PROPOFOL INJECTION 50 ML IV ONE (13:10)
[2021-08-26] MEDS ORDERED: MIDAZOLAM 2 MG/2 ML (VERSED) VIAL ONE (13:11)
--- NOTE | 2021-08-26 15:24 | Progress Note-Post Operative ---
Post-Operative Progess Note Surgeon (s)/Business Intelligence Reporting Analyst (s) Surgeon EDITA BRICENO DO Business Intelligence Reporting Analyst: none Pre-Operative Diagnosis Venous Insufficiency, Liver CA Post-Operative Diagnosis same Procedure & Operative Findings Date of Procedure 08/26/21 Procedure Performed/Findings PROCEDURE: Patrick-Cath placement The patient was taken to the operating suite, was prepped and draped in the sterile fashion. A surgical pause was performed. Local anesthetic was infiltrated at the clavicle and along the tract to the right anterior chest, where more local was placed so the pocket could be created. Using an 18 gauge finder needle with negative inspiration the right subclavian vein was accessed on the first attempt and dark nonpulsatile blood was withdrawn. The wire was inserted and fluoroscopy assured proper placement. The needle was removed. The regular wire was inserted and fluoroscopy assured proper placement. The wire was then secured. A #11 blade scalpel was used to make an incision over the right chest and along guidewire. Cautery was used to dissect down to the pectoral fascia. A pocket was created with blunt dissection. The dilator sheath was then advanced over the wire under fluoroscopy and the dilator and wire were removed. The Groshong catheter was inserted through the sheath and the sheath was then removed. The Groshong wire was removed. The catheter was then tunneled to the right chest pocket. Fluoroscopy was used to cut to length and this was then attached to the port which was then placed within the pocket. The port was then accessed without difficulty. It was then flushed with saline and then heparin. The subcutaneous tissues were then reapproximated using 3-0 Vicryl. Finally the skin was closed with 4-0 undyed monocryl, 3 interrupted sutures. The areas were then washed and dried. Skin Affix was placed over incision. The insertion point of the neck Skin Affix was placed over the incision. The patient tolerated the procedure well without complication and was taken to recovery room in stable condition. Anesthesia Type IV sedation by CEMENT FINISHING SUPERVISOR Estimated Blood Loss Estimated blood loss (mL): minimal Specimens/Packing Specimens Removed EDITA Madison DO Aug 26, 2021 15:24
--- NOTE | 2021-08-26 15:25 | Discharge Inst-Surgical ---
Discharge Inst-Surgical Depart Medication/Instructions New, Converted or Re-Newed RX: Other (use home meds) Patient Instructions Follow up Appt: Make appointment for 1 week. [phone] Instructions: No strenuous activity. May shower in 24 hours, no tub bath or soaking. Use incentive spirometer at home as directed. No Smoking Skin/Wound Care: May remove bandages in am. You need to leave the Dermabond on incision it will fall off on it's own. Symptoms to Report: Appetite Changes, Extremity Discoloration, Numbness/Tingling, Swelling Increased, Bleeding Excessive, Eyesight Changes, Pain Increased, Urine Color Eneida nge, Constipation(Persistent), Fever over 101 degree F, Pain/Pressure in chest, Urinating Difficulty, Cough Up/Vomit Blood, Heart Beat Irreg/Pounding, Pain/Pressure in jaw, Cramps in feet or legs, Lightheadedness, Pain/Pressure in shoulder, Diarrhea(Persistent), Memory Changes Suddenly, Questions/Concerns, Weight gain consecutive days, Dizziness/Fainting, Nausea/Vomiting, Shortness of Breath, Weight gain over 2 pounds If questions or concerns contact your physician Or seek help at emergency department. Activity Activity as Tolerated: Yes Activity Instructions: Avoid Stress to Incision Driving Instructions: No Driving/Refer to Dr. Lei Discharge Diet: No Restrictions Diet After 24 Hours: Clear Liquid if Nauseous If Any Problems/Questions/Issu: Contact Your Physician, Go to Emergency Room Skin/Wound Care Infection Signs and Symptoms: Increased Redness, Foul Odor of Wound, Increased Drainage, Skin Itchy or Has a Rash, Increased Swelling, Temperature Above 101 F Bathing Instructions: Shower Stitches/Rosa/Dermabond Dis: Dermabond Ice Pack: Ice On and Off Site EDITA BRICENO DO Aug 26, 2021 15:25
[2021-08-26] MEDS ORDERED: ONDANSETRON 4 MG/2 ML (SDV) Z0FRAN IVP PRN (15:30)
[2021-08-26] MEDS ORDERED: morphine INJ 10 MG/ML 1ML (SYR OR VIAL) IVP ONE (15:30)
--- NOTE | 2021-08-26 16:23 | Diagnostic Imaging Report ---
INDICATION: Fluoroscopy during chest wall port placement. FINDINGS: 8 seconds of fluoroscopy time was utilized during port placement. A single image was obtained demonstrating a right chest wall port. IMPRESSION: Fluoroscopy during port placement. Dictated by: Dictated on workstation # [id number]
--- NOTE | 2021-08-26 18:06 | Anesthesia-General Post-Op ---
MAC Patient Condition Mental Status/LOC: Same as Preop Cardiovascular: Satisfactory (Pt in A-fib) Nausea/Vomiting: Absent Respiratory: Satisfactory Pain: Controlled Complications: Absent Post Op Complications Complications None Follow Up Care/Instructions Patient Instructions Patient noted to be in a-fib upon monitor placement. Called [facility], patients pcp, follow up order for cardiology by Silvia. Anesthesiology Discharge Order Discharge Order Patient is doing well, no complaints, stable vital signs, no apparent adverse anesthesia problems. No complications reported per nursing. SANDY JIMENEZ CRNA Aug 26, 2021 18:06
== END 2021-08-26 16:30 ==
LOC: SDC 11:46
PROVIDERS: ATTEND Surgery
DX: C22.7 Other specified carcinomas of liver (principal); K74.60 Unspecified cirrhosis of liver; I87.2 Venous insufficiency (chronic) (peripheral)
CPT/HCPCS: 36561; 76000; 93005; C1788

== ENCOUNTER → 2021-08-31 | Outpatient (CLI) | payer OTHER ==
--- NOTE | 2021-08-31 11:02 | Diagnostic Imaging Report ---
INDICATION: Secondary neoplasm of unknown primary. TECHNIQUE: The serum blood glucose level at the time of injection was 124 mg/dL. The patient was administered 14.2 mCi of F-18 FDG intravenously in the right antecubital location and PET imaging was performed from the top of the skull to the mid thighs. Noncontrast CT was also performed for attenuation correction and anatomic correlation. COMPARISON: No prior PET/CT study is available for comparison. Comparison is made with the prior conventional CT abdomen/pelvis study from 08/15/2021. FINDINGS: There appears to be symmetric activity throughout the brain. There is a small nodule in the right parotid gland measuring 7 mm in size. This does show low level activity with an SUV max of 3.5. The remainder of the soft tissues of the neck is unremarkable. There is a hypermetabolic mass in the superior left mediastinum measuring 2.3 x 1.4 cm. This has an SUV max of 11.3. A second smaller hypermetabolic node adjacent to this is also present. There is a hypermetabolic AP window lymph node measuring 2.3 x 2.2 cm with an SUV max of 10.6. There are some hypermetabolic lymph nodes noted along the right heart border as well at the level of the hemidiaphragm. A peripherally hypermetabolic mass in the right lobe of the liver posteriorly is seen with an SUV max of approximately 10. The majority of the hepatic masses do not appear to be hypermetabolic. There is extensive patti hepatis and retroperitoneal hypermetabolic lymphadenopathy. This demonstrates an SUV max of nearly 11. The pelvis is unremarkable. There is physiologic activity throughout the GI and tracts of the abdomen and pelvis. No definite pulmonary parenchymal hypermetabolism is seen. No definite hilar hypermetabolism is identified. IMPRESSION: Extensive hypermetabolic lymphadenopathy in the mediastinum, patti hepatis, and retroperitoneum as well as within a lesion in the right lobe of the liver. No definite primary site of malignancy is detected. Note is made of an indeterminate nodule in the right parotid gland. Dictated by: Dictated on workstation # [id number]
== END ==
LOC: RAD 07:49
PROVIDERS: ATTEND Internal Medicine
DX: C80.1 Malignant (primary) neoplasm, unspecified (principal); C78.1 Secondary malignant neoplasm of mediastinum; C78.6 Secondary malignant neoplasm of retroperitoneum and peritoneum; C78.7 Secondary malignant neoplasm of liver and intrahepatic bile duct; K11.8 Other diseases of salivary glands
CPT/HCPCS: 78815; A9552

== ENCOUNTER 2021-09-07 07:27 | Outpatient (CLI) | payer OTHER ==
[2021-09-07] VITALS (11 sets, daily range): BP systolic 127–154; BP diastolic 83–98
[~2021-09-07] VITALS: Ht 185.4 cm; Wt 80.6 kg
[2021-09-07] MEDS ORDERED: NS IV 1000 ML 1,000 ML IV STA (08:16)
[2021-09-07 08:27] LABS: HEMATOCRIT 42 % (40-54); HEMOGLOBIN 14.4 g/dL (13.3-17.7); MEAN CORPUSCULAR HEMOGLOBIN 30 pg (25-34); MEAN CORPUSCULAR HGB CONC 34 g/dL (32-36); MEAN CORPUSCULAR VOLUME 86 fL (80-99); MEAN PLATELET VOLUME 9.6 fL (9.0-12.2); PLATELET COUNT 206 10^3/uL (130-400); WHITE BLOOD COUNT 8.3 10^3/uL (4.3-11.0)
[2021-09-07] MEDS ORDERED: HYDR-3817 PO (08:27)
[2021-09-07] MEDS ORDERED: MORP15TA69 PO (08:27)
[2021-09-07] MEDS ORDERED: LIDOCAINE 1% INJ 20 ML VIAL INJ ONE (08:30)
[2021-09-07] MEDS ORDERED: MIDAZOLAM 2 MG/2 ML (VERSED) VIAL IVP ONE (08:30)
[2021-09-07] MEDS ORDERED: fentaNYL INJ 100 MCG/2 ML AMP IVP ONE (08:30)
[2021-09-07 08:34] LABS: INR 1.1 (0.8-1.4); PROTHROMBIN TIME PATIENT 14.6 SEC (12.2-14.7)
[2021-09-07] MEDS ORDERED: fentaNYL INJ 100 MCG/2 ML AMP ONE (08:40)
[2021-09-07] MEDS: fentaNYL INJ 100 MCG/2 ML AMP IVP ONE (08:45)
--- NOTE | 2021-09-07 10:32 | Pre-Op Note & Conscious Sedat ---
Pre-Operative Progress Note H&P Reviewed The H&P was reviewed, patient examined and no changes noted. Date H&P Reviewed: Sep 07, 2021 Time H&P Reviewed: 08:00 Pre-Op Diagnosis: abdominal mass Conscious Sedation Pre-Proced Time 08:00 ASA Score 2 For ASA 3 and 4: Consider anesthesia and medical clearance. Also, for patients with a history of failed moderate sedation consider anesthesia. Airway Lungs Heart ASA score ASA 1: a normal healthy patient ASA 2: a patient with a mild systemic disease (mid diabetes, controlled hypertension, obesity ASA 3: a patient with a severe systemic disease that limits activity (angina, COPD, prior Myocardial infarction) ASA 4: a patient with an incapacitating disease that is a constant threat to life (CHF, renal failure) ASA 5: a moribund patient not expected to survive 24 hrs. (ruptured aneurysm) ASA 6: a declared brain- patient whose organs are being harvested. For emergent operations, add the letter E after the classification Mallampati Classification Grade 2 Sedation Plan Analgesia, Amnesia, Plan communicated to team members, Discussed options with patient/fam, Discussed risks with patient/fam The patient is an appropriate candidate to undergo the planned procedure, sedation, and anesthesia. The patient immediately re-assessed prior to indication. CHAY SHIRLEY MD Sep 07, 2021 10:32
[2021-09-07] MEDS ORDERED: HYDROcodone/APAP 5 MG/325 MG (LORTAB) TAB PO PRN (10:45)
--- NOTE | 2021-09-07 11:06 | Diagnostic Imaging Report ---
INDICATION: A retroperitoneal lymphadenopathy and liver masses. Patient presents for CT-guided biopsy. TECHNIQUE: All CT scans use one or more of the following dose optimizing techniques: automated exposure control, MA and/or KvP adjustment based on patient size and exam type or iterative reconstruction. Patient brought to the CT suite and placed on the table in the prone position. Axial imaging through the abdomen was performed to evaluate appropriate entry site. Low back was prepped and draped in usual sterile fashion. Small amount of 1% lidocaine was utilized for local anesthesia. The procedure was performed utilizing conscious sedation with radiology nursing and constant patient monitoring. Patient was given a total of 100 mg of fentanyl intravenously and 1 mg of Versed intravenously. Total procedure time approximately 9 minutes. 18-gauge coaxial Temno needle was advanced from a right paraspinous location into the large jose mass in the central retroperitoneum. Total of 6 core biopsies were obtained. Postprocedure imaging shows no complicating features. Patient tolerated the procedure well left the department stable condition. IMPRESSION: Successful CT-guided core biopsy of the jose mass in the central retroperitoneum, utilizing conscious sedation. Pathology results are currently pending. Dictated by: Dictated on workstation # [id number]
== END 2021-09-07 12:35 | disposition home or self-care (01) ==
LOC: SDC 07:27
PROVIDERS: ATTEND Internal Medicine
DX: I89.0 Lymphedema, not elsewhere classified (principal); R16.0 Hepatomegaly, not elsewhere classified
CPT/HCPCS: 36415; 77012; 85027; 85610; 85730; 99156

== ENCOUNTER 2021-09-14 10:54 | Outpatient (RCR) | payer OTHER ==
[2021-08-31 10:34] LABS: BASOPHILS # (AUTO) 0.1 10^3/uL (0.0-0.1); BASOPHILS % (AUTO) 1 % (0-10); EOSINOPHILS # (AUTO) 0.4 10^3/uL (0.0-0.3); EOSINOPHILS % (AUTO) 4 % (0-10); HEMATOCRIT 43 % (40-54); HEMOGLOBIN 14.6 g/dL (13.3-17.7); LYMPHOCYTES # (AUTO) 2.5 10^3/uL (1.0-4.0); LYMPHOCYTES % (AUTO) 25 % (12-44); MEAN CORPUSCULAR HEMOGLOBIN 29 pg (25-34); MEAN CORPUSCULAR HGB CONC 34 g/dL (32-36); MEAN CORPUSCULAR VOLUME 86 fL (80-99); MEAN PLATELET VOLUME 9.5 fL (9.0-12.2); MONOCYTES # (AUTO) 1.2 10^3/uL (0.0-1.0); MONOCYTES % (AUTO) 11 % (0-12); NEUTROPHILS # (AUTO) 5.9 10^3/uL (1.8-7.8); NEUTROPHILS % (AUTO) 59 % (42-75); PLATELET COUNT 217 10^3/uL (130-400); WHITE BLOOD COUNT 10.1 10^3/uL (4.3-11.0)
[2021-08-31 10:53] LABS: ALBUMIN 3.9 GM/DL (3.2-4.5); BILIRUBIN,TOTAL 1.5 MG/DL (0.1-1.0); CREATININE SERUM 0.8 MG/DL (0.60-1.30); POTASSIUM 4.4 MMOL/L (3.6-5.0); TOTAL PROTEIN 7.6 GM/DL (6.4-8.2)
[2021-09-11 09:48] LABS: BASOPHILS # (AUTO) 0.1 10^3/uL (0.0-0.1); BASOPHILS % (AUTO) 1 % (0-10); EOSINOPHILS # (AUTO) 0.6 10^3/uL (0.0-0.3); EOSINOPHILS % (AUTO) 7 % (0-10); HEMATOCRIT 39 % (40-54); HEMOGLOBIN 13.6 g/dL (13.3-17.7); LYMPHOCYTES # (AUTO) 2.5 10^3/uL (1.0-4.0); LYMPHOCYTES % (AUTO) 31 % (12-44); MEAN CORPUSCULAR HEMOGLOBIN 30 pg (25-34); MEAN CORPUSCULAR HGB CONC 35 g/dL (32-36); MEAN CORPUSCULAR VOLUME 86 fL (80-99); MEAN PLATELET VOLUME 9.6 fL (9.0-12.2); MONOCYTES # (AUTO) 0.8 10^3/uL (0.0-1.0); MONOCYTES % (AUTO) 10 % (0-12); NEUTROPHILS # (AUTO) 4.2 10^3/uL (1.8-7.8); NEUTROPHILS % (AUTO) 51 % (42-75); PLATELET COUNT 194 10^3/uL (130-400); WHITE BLOOD COUNT 8.3 10^3/uL (4.3-11.0)
[2021-09-11 10:09] LABS: ALBUMIN 3.6 GM/DL (3.2-4.5); BILIRUBIN,TOTAL 1.7 MG/DL (0.1-1.0); CALCIUM 9.3 MG/DL (8.5-10.1); CREATININE SERUM 0.72 MG/DL (0.60-1.30); POTASSIUM 4.1 MMOL/L (3.6-5.0)
[~2021-09-14] VITALS: Ht 185.4 cm; Wt 80.3 kg
[~2021-09-14 10:54] MED LIST changes: +MORP15TA69 PO
[2021-09-14] MEDS ORDERED: HEParin (CENTRAL IV FLUSH) 500 UNIT/5 ML SYR IV PRN (13:00)
[2021-09-14] MEDS ORDERED: NS IV 1000 ML (CANCER CTR) IV SCH (13:00)
[2021-09-14] MEDS ORDERED: PALONOSETRON HCL 0.25 MG, dexAMETHasone INJECTION 20 MG in NS (IVPB) 50 ML IV SCH (13:00)
[2021-09-14] MEDS ORDERED: FOSAPREPITANT (CANCER CENTER) 150 MG in NS (IVPB) CANCER CENTER ONLY 150 ML IV SCH (13:00)
[2021-09-14] MEDS ORDERED: GEMCITABINE HCL IV SCH (13:00)
[2021-09-14] MEDS ORDERED: NS IV SCH (13:00)
== END 2021-09-20 | disposition home or self-care (01) ==
LOC: ONC 10:54
PROVIDERS: ATTEND Internal Medicine
DX: C80.1 Malignant (primary) neoplasm, unspecified (principal); K74.60 Unspecified cirrhosis of liver; I87.2 Venous insufficiency (chronic) (peripheral); R16.0 Hepatomegaly, not elsewhere classified
CPT/HCPCS: 80053; 85025; G0463; 36415; 36591; 82105; 82378; 86301; 99213

== ENCOUNTER → 2021-10-02 | Outpatient (CLI) | payer OTHER, MEDICARE | LOC: CARD 10:13 | PROVIDERS: ATTEND Internal Medicine | DX: Z51.11 Encounter for antineoplastic chemotherapy (principal); C22.1 Intrahepatic bile duct carcinoma; I08.3 Combined rheumatic disorders of mitral, aortic and tricuspid valves | CPT/HCPCS: 93306 ==

== ENCOUNTER 2021-10-19 08:30 | Outpatient (RCR) | payer OTHER, MEDICARE ==
[2021-09-28 12:10] LABS: BASOPHILS # (AUTO) 0.1 10^3/uL (0.0-0.1); BASOPHILS % (AUTO) 1 % (0-10); EOSINOPHILS # (AUTO) 0.4 10^3/uL (0.0-0.3); EOSINOPHILS % (AUTO) 4 % (0-10); HEMATOCRIT 39 % (40-54); HEMOGLOBIN 13.4 g/dL (13.3-17.7); LYMPHOCYTES % (AUTO) 23 % (12-44); MEAN CORPUSCULAR HEMOGLOBIN 30 pg (25-34); MEAN CORPUSCULAR HGB CONC 35 g/dL (32-36); MEAN CORPUSCULAR VOLUME 87 fL (80-99); MEAN PLATELET VOLUME 9.5 fL (9.0-12.2); MONOCYTES # (AUTO) 1.1 10^3/uL (0.0-1.0); MONOCYTES % (AUTO) 12 % (0-12); NEUTROPHILS # (AUTO) 5.3 10^3/uL (1.8-7.8); NEUTROPHILS % (AUTO) 60 % (42-75); PLATELET COUNT 216 10^3/uL (130-400); WHITE BLOOD COUNT 8.9 10^3/uL (4.3-11.0)
[2021-09-28 12:33] LABS: ALBUMIN 3.5 GM/DL (3.2-4.5); BILIRUBIN,TOTAL 1.5 MG/DL (0.1-1.0); CALCIUM 8.9 MG/DL (8.5-10.1); CREATININE SERUM 0.79 MG/DL (0.60-1.30); MAGNESIUM 1.6 MG/DL (1.6-2.4); POTASSIUM 4.1 MMOL/L (3.6-5.0); TOTAL PROTEIN 6.8 GM/DL (6.4-8.2)
[2021-10-12 10:39] LABS: BASOPHILS % (AUTO) 1 % (0-10); EOSINOPHILS # (AUTO) 0.1 10^3/uL (0.0-0.3); EOSINOPHILS % (AUTO) 3 % (0-10); HEMATOCRIT 31 % (40-54); HEMOGLOBIN 10.9 g/dL (13.3-17.7); LYMPHOCYTES # (AUTO) 1.5 10^3/uL (1.0-4.0); LYMPHOCYTES % (AUTO) 33 % (12-44); MEAN CORPUSCULAR HEMOGLOBIN 30 pg (25-34); MEAN CORPUSCULAR HGB CONC 35 g/dL (32-36); MEAN CORPUSCULAR VOLUME 87 fL (80-99); MEAN PLATELET VOLUME 9.9 fL (9.0-12.2); MONOCYTES # (AUTO) 0.8 10^3/uL (0.0-1.0); MONOCYTES % (AUTO) 19 % (0-12); NEUTROPHILS % (AUTO) 44 % (42-75); PLATELET COUNT 212 10^3/uL (130-400); WHITE BLOOD COUNT 4.4 10^3/uL (4.3-11.0)
[2021-10-12 10:57] LABS: ALBUMIN 3.3 GM/DL (3.2-4.5); BILIRUBIN,TOTAL 1.1 MG/DL (0.1-1.0); CALCIUM 8.7 MG/DL (8.5-10.1); CREATININE SERUM 0.88 MG/DL (0.60-1.30); POTASSIUM 4.1 MMOL/L (3.6-5.0); TOTAL PROTEIN 6.4 GM/DL (6.4-8.2)
[~2021-10-19 08:30] MED LIST changes: +ACETAMINOPHEN 325 MG TABLET ONE; +FOSAPREPITANT (CANCER CENTER) 150 MG in NS (IVPB) CANCER CENTER ONLY 150 ML IV SCH; +GEMCITABINE HCL IV SCH; +HEParin (CENTRAL IV FLUSH) 500 UNIT/5 ML SYR IV PRN; +NS IV 1000 ML (CANCER CTR) IV SCH; +NS IV ONE; +NS IV SCH; +PALONOSETRON HCL 0.25 MG, dexAMETHasone INJECTION 20 MG in NS (IVPB) 50 ML IV SCH; +TRASTUZUMAB PKRB IV ONE; +TRASTUZUMAB PKRB IV SCH; +diphenhydrAMINE 25 MG TAB (BENADRYL) PO ONE; +diphenhydrAMINE 50 MG/ML INJ (BENADRYL) ONE
[2021-10-19 09:00] LABS: BASOPHILS % (AUTO) 2 % (0-10); EOSINOPHILS # (AUTO) 0.1 10^3/uL (0.0-0.3); EOSINOPHILS % (AUTO) 2 % (0-10); HEMATOCRIT 28 % (40-54); HEMOGLOBIN 9.9 g/dL (13.3-17.7); LYMPHOCYTES # (AUTO) 1.2 10^3/uL (1.0-4.0); LYMPHOCYTES % (AUTO) 44 % (12-44); MEAN CORPUSCULAR HEMOGLOBIN 30 pg (25-34); MEAN CORPUSCULAR HGB CONC 35 g/dL (32-36); MEAN CORPUSCULAR VOLUME 86 fL (80-99); MONOCYTES # (AUTO) 0.4 10^3/uL (0.0-1.0); MONOCYTES % (AUTO) 15 % (0-12); NEUTROPHILS % (AUTO) 37 % (42-75); PLATELET COUNT 173 10^3/uL (130-400); WHITE BLOOD COUNT 2.6 10^3/uL (4.3-11.0)
[2021-10-19 09:20] LABS: ALBUMIN 3.1 GM/DL (3.2-4.5); CALCIUM 8.6 MG/DL (8.5-10.1); CREATININE SERUM 0.81 MG/DL (0.60-1.30); POTASSIUM 4.2 MMOL/L (3.6-5.0); TOTAL PROTEIN 6.2 GM/DL (6.4-8.2)
[2021-10-19] MEDS ORDERED: NS IV 500 ML 500 ML ONE (09:29)
[2021-10-19] MEDS ORDERED: ACETAMINOPHEN 325 MG TABLET ONE (09:32)
[2021-10-19] MEDS ORDERED: diphenhydrAMINE 50 MG/ML INJ (BENADRYL) ONE (09:32)
== END 2021-10-21 | disposition home or self-care (01) ==
LOC: ONC 08:30
PROVIDERS: ATTEND Internal Medicine
DX: Z51.11 Encounter for antineoplastic chemotherapy (principal); Z45.2 Encounter for adjustment and management of vascular access device; C24.9 Malignant neoplasm of biliary tract, unspecified; C79.9 Secondary malignant neoplasm of unspecified site; K74.60 Unspecified cirrhosis of liver
CPT/HCPCS: 80053; 82105; 83735; 85025; 86301; 96367; 96375; 96413; 96417; G0463; 36591

== ENCOUNTER 2021-11-09 09:06 | Outpatient (RCR) | payer OTHER, MEDICARE ==
[2021-10-27 09:13] LABS: BASOPHILS % (AUTO) 1 % (0-10); EOSINOPHILS # (AUTO) 0.1 10^3/uL (0.0-0.3); EOSINOPHILS % (AUTO) 2 % (0-10); HEMATOCRIT 31 % (40-54); HEMOGLOBIN 10.7 g/dL (13.3-17.7); LYMPHOCYTES # (AUTO) 1.5 10^3/uL (1.0-4.0); LYMPHOCYTES % (AUTO) 28 % (12-44); MEAN CORPUSCULAR HEMOGLOBIN 30 pg (25-34); MEAN CORPUSCULAR HGB CONC 35 g/dL (32-36); MEAN CORPUSCULAR VOLUME 86 fL (80-99); MEAN PLATELET VOLUME 9.6 fL (9.0-12.2); MONOCYTES # (AUTO) 0.9 10^3/uL (0.0-1.0); MONOCYTES % (AUTO) 18 % (0-12); NEUTROPHILS # (AUTO) 2.7 10^3/uL (1.8-7.8); NEUTROPHILS % (AUTO) 51 % (42-75); PLATELET COUNT 200 10^3/uL (130-400); WHITE BLOOD COUNT 5.3 10^3/uL (4.3-11.0)
[2021-10-27 09:35] LABS: BILIRUBIN,TOTAL 1.2 MG/DL (0.1-1.0); CALCIUM 8.3 MG/DL (8.5-10.1); CREATININE SERUM 0.95 MG/DL (0.60-1.30); POTASSIUM 4.1 MMOL/L (3.6-5.0); TOTAL PROTEIN 6.2 GM/DL (6.4-8.2)
[~2021-11-09 09:06] MED LIST changes: -ACETAMINOPHEN 325 MG TABLET ONE; -NS IV ONE; -TRASTUZUMAB PKRB IV ONE; -diphenhydrAMINE 25 MG TAB (BENADRYL) PO ONE; -diphenhydrAMINE 50 MG/ML INJ (BENADRYL) ONE
[2021-11-09 09:45] LABS: BASOPHILS # (AUTO) 0.1 10^3/uL (0.0-0.1); BASOPHILS % (AUTO) 1 % (0-10); EOSINOPHILS % (AUTO) 0 % (0-10); HEMATOCRIT 31 % (40-54); LYMPHOCYTES # (AUTO) 1.8 10^3/uL (1.0-4.0); LYMPHOCYTES % (AUTO) 11 % (12-44); MEAN CORPUSCULAR HEMOGLOBIN 30 pg (25-34); MEAN CORPUSCULAR HGB CONC 36 g/dL (32-36); MEAN CORPUSCULAR VOLUME 85 fL (80-99); MEAN PLATELET VOLUME 11.2 fL (9.0-12.2); MONOCYTES # (AUTO) 2.1 10^3/uL (0.0-1.0); MONOCYTES % (AUTO) 13 % (0-12); NEUTROPHILS # (AUTO) 10.8 10^3/uL (1.8-7.8); NEUTROPHILS % (AUTO) 70 % (42-75); PLATELET COUNT 181 10^3/uL (130-400); WHITE BLOOD COUNT 15.4 10^3/uL (4.3-11.0)
[2021-11-09 10:13] LABS: BILIRUBIN,TOTAL 2.2 MG/DL (0.1-1.0); CALCIUM 8.5 MG/DL (8.5-10.1); CREATININE SERUM 1.13 MG/DL (0.60-1.30); POTASSIUM 3.7 MMOL/L (3.6-5.0); TOTAL PROTEIN 6.2 GM/DL (6.4-8.2)
[2021-11-09] MEDS ORDERED: diphenhydrAMINE 50 MG/ML INJ (BENADRYL) ONE (10:29)
[2021-11-09] MEDS ORDERED: NS IV 500 ML 500 ML ONE (10:29)
[2021-11-09] MEDS ORDERED: ACETAMINOPHEN 325 MG TABLET ONE (10:29)
[2021-11-16] MEDS ORDERED: ONDA8TAB13 PO (14:48)
[2021-11-16] MEDS ORDERED: MORP-68 PO (14:48)
[2021-11-16] MEDS ORDERED: RIVA20TA PO (14:48)
[2021-11-16] MEDS ORDERED: HYDR-3820 PO (14:52)
== END 2021-11-17 11:49 | disposition home or self-care (01) ==
LOC: ONC 09:06
PROVIDERS: ATTEND Internal Medicine
DX: Z51.11 Encounter for antineoplastic chemotherapy (principal); Z45.2 Encounter for adjustment and management of vascular access device; C24.9 Malignant neoplasm of biliary tract, unspecified; C79.9 Secondary malignant neoplasm of unspecified site; K74.60 Unspecified cirrhosis of liver
CPT/HCPCS: 36591; 80053; 85025; 96360; 96367; 96375; 96413; 96417

== ENCOUNTER → 2021-11-11 | Outpatient (CLI) | payer OTHER, MEDICARE ==
[~2021-11-11] MED LIST changes: +CATHETER FLUSH 10 ML SYR IV PRN; -FOSAPREPITANT (CANCER CENTER) 150 MG in NS (IVPB) CANCER CENTER ONLY 150 ML IV SCH; -GEMCITABINE HCL IV SCH; -HEParin (CENTRAL IV FLUSH) 500 UNIT/5 ML SYR IV PRN; +HOLD METFORMIN - RECEIVED CONTRAST 20 ML VIAL IV SCH; +IOHEXOL 350 MG/ML 100 ML (OMNIPAQUE 350) VIAL IV ONE; +NS 100 ML (IVPB) BAG IV ONE; -NS IV 1000 ML (CANCER CTR) IV SCH; -NS IV SCH; -PALONOSETRON HCL 0.25 MG, dexAMETHasone INJECTION 20 MG in NS (IVPB) 50 ML IV SCH; -TRASTUZUMAB PKRB IV SCH
--- NOTE | 2021-11-11 13:31 | Diagnostic Imaging Report ---
EXAMINATION: CT chest, abdomen and pelvis with intravenous contrast. TECHNIQUE: Multiple contiguous axial images were obtained through the chest, abdomen and pelvis after the uneventful administration of intravenous contrast. All CT scans use one or more of the following dose optimizing techniques: Automated exposure control, MA and/or KvP adjustment based on patient size and exam type or iterative reconstruction. HISTORY: Cholangiocarcinoma of biliary tract. COMPARISON: 08/15/2021, 08/31/2021. FINDINGS: Thyroid: The visualized thyroid gland is normal. Mediastinum: Heart size is normal without significant pericardial effusion. Calcifications of the aorta and coronary vessels. Thoracic aorta is normal in caliber. Increasing size of multiple suspicious mediastinal lymph nodes with a patient intake representative left upper mediastinal node measuring up to 2.5 cm in short axis (previously 1.4 cm). A right-sided port catheter is present. Lungs and airways: There are background emphysematous changes of the lungs. There is patchy ground-glass consolidation throughout both lungs. No pleural effusion or pneumothorax. No focal suspicious pulmonary nodule is seen, although evaluation is limited secondary to consolidation. The airways are normal. Solid organs: Nodular morphology of the liver with multiple heterogeneous lesions seen throughout. The largest lesion seen within the superior right hepatic lobe which may demonstrate central necrosis and measures up to 5.7 cm, stable from prior exam. Additional lesions are not significantly changed with less conspicuous appearance of the enhancement seen on prior CT. The gallbladder is normal. There is no biliary ductal dilation. Pancreas is normal. Spleen is normal. Adrenal glands are normal. The kidneys are normal without hydronephrosis. Bowel: The stomach and small bowel are normal without obstruction. Colon is unremarkable. Peritoneum: There is mild ascites. No free air. Multiple enlarged patti hepatis, mesenteric, and retroperitoneal lymph nodes, many of which are slightly decreased in size from prior exam. A patient intake representative lesion within the patti hepatis measures 3.3 x 4.5 cm (previously 4.7 x 4.4 cm, (series 2, image 123)). Vasculature: Calcification of the aorta without aneurysm. Multiple portosystemic collateral varices are present. Musculoskeletal: No suspicious osseous lesion or compression fracture. Pelvis: The prostate gland is normal. The urinary bladder is normal. IMPRESSION: 1. Overall stable appearance of the liver lesions compatible with history of cholangiocarcinoma and likely multiple satellite lesions. 2. Nodular morphology of the liver with sequelae of portal hypertension including portosystemic collateral varices. 3. Slightly decreased size of the patti hepatis, retroperitoneal, and mesenteric lymphadenopathy compared to prior exam. 4. Patchy ground-glass consolidation throughout the lungs, which is concerning for multifocal pneumonia. Dictated by: Dictated on workstation # [id number]
== END ==
LOC: RAD 10:37
PROVIDERS: ATTEND Internal Medicine
DX: C22.1 Intrahepatic bile duct carcinoma (principal); J18.1 Lobar pneumonia, unspecified organism; K76.6 Portal hypertension; I87.8 Other specified disorders of veins
CPT/HCPCS: 71260; 74177

== ENCOUNTER 2021-11-16 09:01 | Inpatient (IN) | payer OTHER, MEDICARE ==
[~2021-11-16] VITALS: Ht 185.4 cm; Wt 77.5 kg
[~2021-11-16 09:01] MED LIST changes: -CATHETER FLUSH 10 ML SYR IV PRN; -HOLD METFORMIN - RECEIVED CONTRAST 20 ML VIAL IV SCH; -IOHEXOL 350 MG/ML 100 ML (OMNIPAQUE 350) VIAL IV ONE; -NS 100 ML (IVPB) BAG IV ONE
--- NOTE | 2021-11-16 09:42 | ED General ---
General Chief Complaint: Cough/Cold/Flu Symptoms Stated Complaint: SOA - COUGH - CONGESTON Source of Information: Patient Exam Limitations: No Limitations History of Present Illness Date Seen by Provider: Nov 16, 2021 Time Seen by Provider: 09:20 Initial Comments Here with shortness of air, cough, congestion, weakness and feeling cold. 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 Does have history of atrial fibrillation and is on Xarelto. Reports not eating or drinking well. Does have increasing fatigue. Follows with cancer center here as well [facility]. Timing/Duration: 3-4 Days, Getting Worse Severity: Moderate Associated Systoms: No Chest Pain; Cough; No Fever/Chills; Loss of Appetite; No Nausea/Vomiting; Shortness of Air, Weakness Allergies and Home Medications Allergies Coded Allergies: No Known Drug Allergies (Unverified , 08/26/21) Patient Home Medication List Home Medication List Reviewed: Yes Albuterol Sulfate (Ventolin Hfa) 1 Puff Puff, 2 PUFF INH Q4H PRN for SHORTNESS OF BREATH, (Reported) Entered as Reported by: DEAN ELLISON on 08/20/21 0759 Aspirin (Aspir 81) 81 Mg Tablet.dr, 81 MG PO DAILY, (Reported) Entered as Reported by: SONNY BRIONES on 11/13/18 0925 Hydrocodone/Acetaminophen (Hydrocodone-Acetamin 7.5-325) 7.5 Mg-325 Mg Tablet, 1 EACH PO Q4H, (Reported) Entered as Reported by: ANICETO MARTINEZ on 09/07/21 0827 Metoprolol Succinate (Metoprolol Succinate) 50 Mg Tab.er.24h, 50 MG PO DAILY, (Reported) Entered as Reported by: MEHNAZ JORGE on 08/19/21 1205 Morphine Sulfate (Ms Contin) 15 Mg Tablet.er, 15 MG PO Q12H, (Reported) Entered as Reported by: ANICETO MARTINEZ on 09/07/21 08 Review of Systems Review of Systems Constitutional: see HPI; No chills, No fever EENTM: No nose congestion, No throat pain Respiratory: short of breath, other (Clear, frothy sputum that is reported to be occasionally blood-tinged) Cardiovascular: No chest pain; edema, palpitations Gastrointestinal: loss of appetite; No nausea, No vomiting Genitourinary: No dysuria, No pain Musculoskeletal: No muscle pain; muscle weakness Skin: no symptoms reported Psychiatric/Neurological: No Symptoms Reported; Denies Headache; Weakness All Other Systems Reviewed Negative Unless Noted: Yes Past Iviaaun-Juunzg-Tnmlwq Hx Patient Social History Tobacco Use?: No Use of E-Cig and/or Vaping dev: No Substance use?: No Alcohol Use?: Yes Alcohol type: Beer Alcohol Frequency: Rarely Immunizations Up To Date Tetanus Booster (TDap): Unknown First/Initial COVID19 Vaccinat: 2020 Second COVID19 Vaccination Booker: 2020 Third COVID19 Vaccination Date: 2020 Seasonal Allergies Seasonal Allergies: Yes Past Medical History Surgery/Hospitalization HX: HTN R FIRST FINGER AMP Surgeries: Yes (AMPUTATION RIGHT INDEX FINGER, COLONOSCOPY) Orthopedic Respiratory: Yes (USES INHALER) Chronic Bronchitis, COPD Currently Using CPAP: No Currently Using BIPAP: No Cardiac: Yes High Cholesterol, Irregular Heartbeat Neurological: No Genitourinary: No Gastrointestinal: Yes (HX HEP C) Gastroesophageal Reflux, Liver Disease/Jaundice, Hepatitis Musculoskeletal: Yes Arthritis, Chronic Back Pain Endocrine: No HEENT: Yes (GLASSES) Cancer: Yes Liver Did You Recieve Any Treatments: Yes What Type of Treatment Did You: Chemotherapy Psychosocial: Yes Anxiety, Depression Integumentary: No Blood Disorders: No Adverse Reaction/Blood Tranf: No (N/A) Family Medical History Reviewed Nursing Family Hx No Pertinent Family Hx Physical Exam-Suspected Sepsis Physical Exam Vital Signs Vital Signs - First Documented 11/16/21 09:10 Temp 36.2 Pulse 143 Resp 18 B/P (MAP) 141/100 (114) Pulse Ox 100 O2 Delivery Room Air Capillary Refill : Height, Weight, BMI Height: 6'0" Weight: 200lbs. oz. [id number]; 24.43 BMI Method:Estimated General Appearance: Mild Distress, Thin HEENT: PERRL/EOMI, Pharynx Normal Neck: Non Tender, Supple Respiratory: No Respiratory Distress, Crackles (}); No Wheezing Cardiovascular: Irregularly Irregular, Tachycardia Gastrointestinal: Non Tender, Soft Back: Normal Inspection, No CVA Tenderness, No Vertebral Tenderness Extremity: Non Tender, No Calf Tenderness, Pedal Edema (2+ to mid tibia bilateral) Neurologic/Psychiatric: Alert, Oriented x3 Skin: normal color, warm/dry Focused Exam Lactate Level 11/16/21 09:35: Lactic Acid Level 2.50*H Lactic Acid Level Laboratory Tests Test 11/16/21 09:35 Lactic Acid Level 2.50 MMOL/L (0.50-2.00) *H Procedures/Interventions Suture Size: 5-0 Progress/Results/Core Measures Suspected Sepsis SIRS Temperature: Pulse: Respiratory Rate: Laboratory Tests 11/16/21 09:35: White Blood Count 4.9 Blood Pressure / Mean: 11/16/21 09:35: Lactic Acid Level 2.50*H Laboratory Tests 11/16/21 09:35: Creatinine 2.06H, INR Comment 1.6H, Platelet Count 76L, Total Bilirubin 3.5H Results/Orders Lab Results Laboratory Tests Test 11/16/21 09:35 Range/Units White Blood Count 4.9 4.3-11.0 10^3/uL Red Blood Count 2.96 L 4.30-5.52 10^6/uL Hemoglobin 9.1 L 13.3-17.7 g/dL Hematocrit 24 L 40-54 % Mean Corpuscular Volume 82 80-99 fL Mean Corpuscular Hemoglobin 31 25-34 pg Mean Corpuscular Hemoglobin Concent 37 H 32-36 g/dL Red Cell Distribution Width 16.7 H 10.0-14.5 % Platelet Count 76 L 130-400 10^3/uL Mean Platelet Volume 11.9 9.0-12.2 fL Immature Granulocyte % (Auto) 1 % Neutrophils (%) (Auto) 67 42-75 % Lymphocytes (%) (Auto) 22 12-44 % Monocytes (%) (Auto) 9 0-12 % Eosinophils (%) (Auto) 0 0-10 % Basophils (%) (Auto) 0 0-10 % Neutrophils # (Auto) 3.3 1.8-7.8 10^3/uL Lymphocytes # (Auto) 1.1 1.0-4.0 10^3/uL Monocytes # (Auto) 0.4 0.0-1.0 10^3/uL Eosinophils # (Auto) 0.0 0.0-0.3 10^3/uL Basophils # (Auto) 0.0 0.0-0.1 10^3/uL Immature Granulocyte # (Auto) 0.1 0.0-0.1 10^3/uL Percent Immature Platelet Fraction 5.5 0.0-7.6 % Prothrombin Time 19.6 H 12.2-14.7 SEC INR Comment 1.6 H 0.8-1.4 Activated Partial Thromboplast Time 37 H 24-35 SEC Sodium Level 131 L 135-145 MMOL/L Potassium Level 3.9 3.6-5.0 MMOL/L Chloride Level 93 L 98-107 MMOL/L Carbon Dioxide Level 19 L 21-32 MMOL/L Anion Gap 19 H 5-14 MMOL/L Blood Urea Nitrogen 55 H 7-18 MG/DL Creatinine 2.06 H 0.60-1.30 MG/DL Estimat Glomerular Filtration Rate 34 BUN/Creatinine Ratio 27 Glucose Level 93 70-105 MG/DL Lactic Acid Level 2.50 *H 0.50-2.00 MMOL/L Calcium Level 8.5 8.5-10.1 MG/DL Corrected Calcium 9.4 8.5-10.1 MG/DL Magnesium Level 1.0 *L 1.6-2.4 MG/DL Total Bilirubin 3.5 H 0.1-1.0 MG/DL Aspartate Amino Transf (AST/SGOT) 104 H 5-34 U/L Alanine Aminotransferase (ALT/SGPT) 39 0-55 U/L Alkaline Phosphatase 163 H 40-136 U/L Troponin I < 0.028 <0.028 NG/ML C-Reactive Protein High Sensitivity 6.67 H 0.00-0.50 MG/DL B-Type Natriuretic Peptide 125.4 H <100.0 PG/ML Total Protein 5.8 L 6.4-8.2 GM/DL Albumin 2.9 L 3.2-4.5 GM/DL Procalcitonin 1.01 H <0.10 NG/ML My Orders Orders - PRISCA PERZE MD Cbc With Automated Diff (11/16/21 09:36) Comprehensive Metabolic Panel (11/16/21 09:36) Blood Culture (11/16/21 09:36) Sputum Culture (11/16/21 09:36) Urinalysis (11/16/21 09:36) Urine Culture (11/16/21 09:36) Protime With Inr (11/16/21 09:36) Partial Thromboplastin Time (11/16/21 09:36) Chest 1 View, Ap/Pa Only (11/16/21 09:36) Ed Iv/Invasive Line Start (11/16/21 09:36) Ekg Tracing (11/16/21 09:36) Vital Signs Adult Sepsis Patie Q15M (11/16/21 09:36) O2 (11/16/21 09:36) Remove Rings In Anticipation O (11/16/21 09:36) Lactic Acid Analyzer (11/16/21 09:36) Bnp Simpson (11/16/21 09:36) Hs C Reactive Protein (11/16/21 09:36) Magnesium (11/16/21 09:36) Procalcitonin (Pct) (11/16/21 09:36) Troponin I Simpson (11/16/21 09:36) Diltiazem Drip Pre-Mix (Cardizem Drip Pr (11/16/21 10:15) Diltiazem Injection (Cardizem Injection) (11/16/21 10:15) Ns Iv 500 Ml (Sodium Chloride 0.9%) (11/16/21 10:15) Cefepime Injection (Maxipime Injection) (11/16/21 11:30) Magnesium 1 Gm/100 Ml Ivpb (Magnesium Ledbetter (11/16/21 11:45) Ed Admission (Communication) (11/16/21 11:55) Medications Given in ED Current Medications Medications Dose Ordered Sig/Grecia Route Start Time Stop Time Status Last Admin Dose Admin Diltiazem HCl 10 mg ONCE ONCE IVP 11/16/21 10:15 11/16/21 10:16 DC 11/16/21 10:41 10 MG Sodium Chloride 500 ml @ 0 mls/hr Q0M ONCE IV 11/16/21 10:15 11/16/21 10:16 DC 11/16/21 10:40 500 MLS/HR Vital Signs/I&O 11/16/21 11/16/21 11/16/21 09:10 10:40 10:41 Temp 36.2 Pulse 143 131 131 Resp 18 B/P (MAP) 141/100 (114) Pulse Ox 100 O2 Delivery Room Air Capillary Refill : Progress Note : Progress Note Seen and evaluated. We will pursue to pathways including sepsis pathway and cardiac pathway given concerns about pneumonia but also patient has tachycardic heart rate with history of A. fib indicating atrial fibrillation with RVR and concerns of sequela of heart failure. We will initiate Cardizem 10 mg IV bolus and drip to titrate to heart rate less than 100. Normal saline 500 mL bolus ordered to prevent hypotension with Cardizem and we will hold at that given that there are concerns of heart failure due to coughing probably sputum as well as lower extremity edema and setting of high cardiac demand due to atrial fibrillation with rapid ventricular response. All of this was discussed with patient and family who agree. Labs, chest x-ray, EKG, blood cultures and lactic acid ordered per indicated protocols. Monitor patient. 1132: I have ordered cefepime 1 g IV for pneumonia with elevated lactic acid and elevated CRP and procalcitonin in the setting of chest x-ray that shows questionable bilateral lower lobe pneumonia in a patient on chemotherapy. Patient to be admitted. Heart rate now 1 10-1 20. We have increased Cardizem drip to 10 mg/h. Patient to be admitted to the ICU. I have paged Dr. Benz. Magnesium noted to be quite low, magnesium 1 g IV ordered. Monitor patient. 1157: I did discuss the case with Dr. Benz. Patient's primary dietary services director is Dr. Rothman and she will call consult to him. I did review labs, chest x-ray, EKG and current treatment and response with Dr. Benz. She accepts patient for admission, inpatient status to the ICU. Patient agrees with plan. ECG Initial ECG Impression Date: Nov 16, 2021 Initial ECG Impression Time: 09:15 Initial ECG Rate: 147 Initial ECG Rhythm: A Fib/Flutter Initial ECG Impression: Atrial Fibrillation w/RVR Comment Finding consistent with atrial fibrillation with rapid ventricular response. No evidence of ST elevation SD. Normal but rightward axis. Interpreted by me. Diagnostic Imaging Diagonstic Imaging: Xray Plain Films/CT/US/NM/MRI: chest Comments [facility] [place], [place] NAME: MARTHA [facility]AN [facility] REC#: [id number] PT STATUS: REG ER : 1955 PHYSICIAN: PRISCA PEREZ MD ADMIT DATE: 11/16/21/ER Draft Date of Exam:11/16/21 CHEST 1 VIEW, AP/PA ONLY INDICATION: Cough AP view of the chest is obtained. COMPARISON: 11/11/2021 FINDINGS: There is borderline cardiomegaly. Pulmonary vascularity is within normal limits. Patchy increased density is again noted in the perihilar and basilar regions which may represent areas of infiltrate. Lobulated mass along the left superior mediastinum is again noted. There is no evidence of pneumothorax. IMPRESSION: Left superior mediastinal mass with persistent patchy pneumonitis or atypical pneumonias in the lower half of the lungs. Dictated on workstation # [id number] Dict: 11/16/21 1009 Trans: 11/16/21 1020 [facility] [id number] Interpreted by: MCKAYLA HUSAIN MD Electronically signed by: Critical Care Note Critical Care Start Time: 09:20 Stop Time: 11:57 Total Time (minutes) 40 Departure Communication (Admissions) Time/Spoke to Admitting Phy: 11:31 Impression Primary Impression: Atrial fibrillation with rapid ventricular response Additional Impressions: Bilateral pneumonia Qualified Codes: J18.9 - Pneumonia, unspecified organism Liver cancer Qualified Codes: C22.1 - Intrahepatic bile duct carcinoma Hypomagnesemia Disposition: ADMITTED INPATIENT Condition: Stable Admissions Decision to Admit Reason: Admit from ER (General) Decision to Admit/Date: Nov 16, 2021 Time/Decision to Admit Time: 11:31 Departure-Patient Inst. Referrals: [facility] [place] (PCP/Family) Primary Care Physician PRISCA PEREZ MD Nov 16, 2021 09:42
[2021-11-16 09:45] LABS: BASOPHILS % (AUTO) 0 % (0-10); HEMOGLOBIN 9.1 g/dL (13.3-17.7); MONOCYTES # (AUTO) 0.4 10^3/uL (0.0-1.0)
[2021-11-16 09:47] LABS: EOSINOPHILS % (AUTO) 0 % (0-10); HEMATOCRIT 24 % (40-54); LYMPHOCYTES # (AUTO) 1.1 10^3/uL (1.0-4.0); LYMPHOCYTES % (AUTO) 22 % (12-44); MEAN CORPUSCULAR HEMOGLOBIN 31 pg (25-34); MEAN CORPUSCULAR HGB CONC 37 g/dL (32-36); MEAN CORPUSCULAR VOLUME 82 fL (80-99); MEAN PLATELET VOLUME 11.9 fL (9.0-12.2); MONOCYTES % (AUTO) 9 % (0-12); NEUTROPHILS # (AUTO) 3.3 10^3/uL (1.8-7.8); NEUTROPHILS % (AUTO) 67 % (42-75); PLATELET COUNT 76 10^3/uL (130-400); WHITE BLOOD COUNT 4.9 10^3/uL (4.3-11.0)
[2021-11-16 10:00] LABS: ALBUMIN 2.9 GM/DL (3.2-4.5); CHLORIDE 93 MMOL/L (98-107); POTASSIUM 3.9 MMOL/L (3.6-5.0); SODIUM 131 MMOL/L (135-145)
[2021-11-16 10:01] LABS: CALCIUM 8.5 MG/DL (8.5-10.1)
[2021-11-16 10:02] LABS: GLUCOSE 93 MG/DL (70-105); INR 1.6 (0.8-1.4); PROTHROMBIN TIME PATIENT 19.6 SEC (12.2-14.7)
[2021-11-16 10:03] LABS: TOTAL PROTEIN 5.8 GM/DL (6.4-8.2)
[2021-11-16 10:04] LABS: BILIRUBIN,TOTAL 3.5 MG/DL (0.1-1.0); CARBON DIOXIDE 19 MMOL/L (21-32)
[2021-11-16 10:06] LABS: ALKALINE PHOSPHATASE 163 U/L (40-136); CREATININE SERUM 2.06 MG/DL (0.60-1.30); GFR ESTIMATED 34
[2021-11-16 10:07] LABS: BUN/CREATININE RATIO 27
[2021-11-16 10:09] LABS: ALANINE AMINOTRANSFERASE 39 U/L (0-55)
[2021-11-16] MEDS ORDERED: NS IV 500 ML 500 ML IV ONE (10:15)
--- NOTE | 2021-11-16 10:20 | Diagnostic Imaging Report ---
INDICATION: Cough AP view of the chest is obtained. COMPARISON: 11/11/2021 FINDINGS: There is borderline cardiomegaly. Pulmonary vascularity is within normal limits. Patchy increased density is again noted in the perihilar and basilar regions which may represent areas of infiltrate. Lobulated mass along the left superior mediastinum is again noted. There is no evidence of pneumothorax. IMPRESSION: Left superior mediastinal mass with persistent patchy pneumonitis or atypical pneumonias in the lower half of the lungs. Dictated by: Dictated on workstation # [id number]
[2021-11-16] MEDS: dilTIAZem DRIP PRE-MIX 125 ML IV SCH (10:40)
[2021-11-16] MEDS ORDERED: CEFEPIME INJECTION 1,000 MG in NS (IVPB) 50 ML IV ONE (11:30)
[2021-11-16] MEDS ORDERED: MAGNESIUM 1 GM/100 ML IVPB 100 ML IV ONE (11:45)
[2021-11-16] MEDS ORDERED: ENOXAPARIN 40 MG/0.4 ML (LOVENOX) SYR SC SCH (14:00)
[2021-11-16] MEDS ORDERED: NS IV 500 ML 500 ML IV PRN (14:00)
[2021-11-16] MEDS ORDERED: CEFEPIME INJECTION 1,000 MG in NS (IVPB) 50 ML IV SCH (14:00)
[2021-11-16 14:05] VITALS: BP 121/78
[2021-11-16] MEDS ORDERED: RT-ALBUTEROL/IPRATROPIUM 3 ML (DUONEB) VIAL INH PRN (14:15)
[2021-11-16] MEDS ORDERED: ONDA8TAB13 PO (14:48)
[2021-11-16] MEDS ORDERED: MORP-68 PO (14:48)
[2021-11-16] MEDS ORDERED: RIVA20TA PO (14:48)
[2021-11-16] MEDS ORDERED: HYDR-3820 PO (14:52)
--- NOTE | 2021-11-16 15:48 | History & Physical ---
HPI History of Present Illness: 66 yo M with known h/o Liver cancer currently undergoing treatment that presented with increasing shortness of breath with fatigue in the last 48 hrs. Patient states that his last treatment was Nov 09. Denies any fevers but states that he has been very cold the last few days. States that he has been having normal BMs but has been nauseous and coughing up phelm. States that weeks ago the phelm had some blood but has not had that recently. He has had decreased appetite the last few days and has not been drinking much fluids. States that he has an out of hospital DNR but he would be ok with medications but does not desire chest compressions or to be intubated. Source: patient Exam Limitations: no limitations Date seen by provider: Nov 16, 2021 Time Seen by Provider: 14:15 Attending Physician [place] PCP Admitting Physician: Jia Benz MD Attending Physician: Jia Benz MD Consult Date of Admission Nov 16, 2021 at 11:56 Home Medications Home Medications Reviewed patient Home Medication Reconciliation performed by pharmacy medication reconciliations copy room technician and/or nursing. Patients Allergies have been reviewed. Allergies Coded Allergies: No Known Drug Allergies (Unverified , 08/26/21) OCS-Exhczh-Gionmc Hx Patient Social History Living Status: Lives at home independently Smoking Status: Former Smoker 2nd Hand Smoke Exposure: No Recent Hopitalizations: No Alcohol Use?: No Substance type: Marijuana Have you traveled recently?: No Immunizations Up To Date Tetanus Booster (TDap): Unknown Influenza Vaccine Up-to-Date: No; Not Current First/Initial COVID19 Vaccinat: 2020 Second COVID19 Vaccination Booker: 2020 Third COVID19 Vaccination Date: 2020 Past Medical History Intrahepatic Bile Duct Carcinoma with mets Atrial fibrillation Family Medical History Significant Family History: No Pertinent Family Hx Review of Systems ([facility]) Constitutional: chills; No fever; malaise, weakness EENTM: no symptoms reported; No nose congestion, No nose pain, No throat swelling Respiratory: dyspnea on exertion, phlegm, short of breath Cardiovascular: no symptoms reported; No chest pain; edema, palpitations Gastrointestinal: abdominal pain; No constipation, No diarrhea; loss of appetite, nausea, vomiting Genitourinary: no symptoms reported; No dysuria, No frequency, No hematuria Musculoskeletal: no symptoms reported Skin: other (mottling of skin LE) Psychiatric/Neurological: Tremors, Weakness Reviewed Test Results Reviewed Test Results Lab Laboratory Tests Test 11/16/21 09:35 11/16/21 12:15 11/16/21 14:19 Range/Units White Blood Count 4.9 4.3-11.0 10^3/uL Red Blood Count 2.96 L 4.30-5.52 10^6/uL Hemoglobin 9.1 L 13.3-17.7 g/dL Hematocrit 24 L 40-54 % Mean Corpuscular Volume 82 80-99 fL Mean Corpuscular Hemoglobin 31 25-34 pg Mean Corpuscular Hemoglobin Concent 37 H 32-36 g/dL Red Cell Distribution Width 16.7 H 10.0-14.5 % Platelet Count 76 L 130-400 10^3/uL Mean Platelet Volume 11.9 9.0-12.2 fL Immature Granulocyte % (Auto) 1 % Neutrophils (%) (Auto) 67 42-75 % Lymphocytes (%) (Auto) 22 12-44 % Monocytes (%) (Auto) 9 0-12 % Eosinophils (%) (Auto) 0 0-10 % Basophils (%) (Auto) 0 0-10 % Neutrophils # (Auto) 3.3 1.8-7.8 10^3/uL Lymphocytes # (Auto) 1.1 1.0-4.0 10^3/uL Monocytes # (Auto) 0.4 0.0-1.0 10^3/uL Eosinophils # (Auto) 0.0 0.0-0.3 10^3/uL Basophils # (Auto) 0.0 0.0-0.1 10^3/uL Immature Granulocyte # (Auto) 0.1 0.0-0.1 10^3/uL Percent Immature Platelet Fraction 5.5 0.0-7.6 % Prothrombin Time 19.6 H 12.2-14.7 SEC INR Comment 1.6 H 0.8-1.4 Activated Partial Thromboplast Time 37 H 24-35 SEC Sodium Level 131 L 135-145 MMOL/L Potassium Level 3.9 3.6-5.0 MMOL/L Chloride Level 93 L 98-107 MMOL/L Carbon Dioxide Level 19 L 21-32 MMOL/L Anion Gap 19 H 5-14 MMOL/L Blood Urea Nitrogen 55 H 7-18 MG/DL Creatinine 2.06 H 0.60-1.30 MG/DL Estimat Glomerular Filtration Rate 34 BUN/Creatinine Ratio 27 Glucose Level 93 70-105 MG/DL Lactic Acid Level 2.50 *H 2.08 *H 1.66 0.50-2.00 MMOL/L Calcium Level 8.5 8.5-10.1 MG/DL Corrected Calcium 9.4 8.5-10.1 MG/DL Magnesium Level 1.0 *L 1.6-2.4 MG/DL Total Bilirubin 3.5 H 0.1-1.0 MG/DL Aspartate Amino Transf (AST/SGOT) 104 H 5-34 U/L Alanine Aminotransferase (ALT/SGPT) 39 0-55 U/L Alkaline Phosphatase 163 H 40-136 U/L Troponin I < 0.028 <0.028 NG/ML C-Reactive Protein High Sensitivity 6.67 H 0.00-0.50 MG/DL B-Type Natriuretic Peptide 125.4 H <100.0 PG/ML Total Protein 5.8 L 6.4-8.2 GM/DL Albumin 2.9 L 3.2-4.5 GM/DL Procalcitonin 1.01 H <0.10 NG/ML Physical Exam-([facility]) Physical Exam Vital Signs VS - Last 72 Hours, by Label 11/16/21 11/16/21 11/16/21 11/16/21 09:10 10:40 10:41 13:00 Temp 36.2 Pulse 143 131 131 78 Resp 18 B/P (MAP) 141/100 (114) Pulse Ox 100 O2 Delivery Room Air 11/16/21 11/16/21 11/16/21 11/16/21 13:00 13:05 14:00 14:05 Temp 36.2 36.2 Pulse 73 85 73 85 Resp 12 16 19 B/P (MAP) 117/75 (89) 121/78 120/73 (89) Pulse Ox 97 99 98 99 O2 Delivery Room Air FiO2 21 11/16/21 15:00 Pulse 74 Resp 26 B/P (MAP) 111/98 (102) Pulse Ox 95 Capillary Refill : Less Than 3 Seconds General Appearance: no apparent distress, thin HEENT: PERRL/EOMI Neck: non-tender, full range of motion, supple Respiratory: chest non-tender, lungs clear, normal breath sounds, no respiratory distress, no accessory muscle use Cardiovascular: no murmur, tachycardia, other (3+ pitting edema to thighs) Gastrointestinal: soft, guarding (RUQ with soft palpation), tenderness Extremities: no calf tenderness, pedal edema Neurologic/Psychiatric: network operations manager II-XII nml as tested, alert, oriented x 3 Skin: mottled (LE bilaterally to thigh) Assessment/Plan Assessment/Plan Admission Status: Inpatient Order (span 2 midnights) Reason for Inpatient Admission: High risk for decompensation in patient on current chemotherapy (1) Sepsis Status: Acute Assessment & Plan: - Patient started on cefepime given he is on chemotherapy for PNA, Procal and CRP elevated, gentle IVFs given elevated BNP and extensive LE edema Qualifiers: Qualified Codes: A41.9 - Sepsis, unspecified organism; R65.20 - Severe sepsis without septic shock; N17.9 - Acute kidney failure, unspecified (2) Atrial fibrillation with rapid ventricular response Status: Acute Assessment & Plan: - Cardiology Dr Nguyen's consulted, appreciate recommen dations, HR improved with cardizem in ER (3) Bilateral pneumonia Status: Acute Assessment & Plan: - Cefepime D1, MAT protocol, not requiring oxygen at this time Qualifiers: Qualified Codes: J18.9 - Pneumonia, unspecified organism (4) Mediastinal mass Status: Acute Assessment & Plan: - Present on PET scan done in August, likely metastatic mass (5) Acute renal failure Status: Acute Assessment & Plan: - Gentle hydration, will continue to monitor Qualifiers: Qualified Codes: N17.9 - Acute kidney failure, unspecified (6) Normocytic anemia Status: Chronic (7) Hypomagnesemia Status: Acute Assessment & Plan: - Replace and repeat level (8) Liver cancer Qualifiers: Qualified Codes: C22.1 - Intrahepatic bile duct carcinoma (9) DVT prophylaxis Assessment & Plan: - JIA Scruggs MD Nov 16, 2021 15:48
[2021-11-16] MEDS: RT-ALBUTEROL/IPRATROPIUM 3 ML (DUONEB) VIAL INH SCH (15:54)
--- NOTE | 2021-11-16 16:40 | Consultation-Cardiology ---
HPI-Cardiology Cardiology Consultation: Date of Consultation 11/16/21 Date of Admission 11/16/21 Attending Physician [place] Admitting Physician Admitting Physician: Juanita Benz MD Attending Physician: Juanita Benz MD Consulting Physician SAUL CHOWDHURY JR, MD HPI: Time Seen by a Provider: 17:03 Chief Complaint: REASON FOR CONSULTATION: Atrial fibrillation. I had the pleasure of seeing Rene in the intensive care unit at [facility] in [place], [place] today. He is known to me from the outpatient setting. He has a history of permanent atrial fibrillation since about 2010, hypertension, and metastatic carcinoma of unknown primary. For the past few days he has been noticing increasing dyspnea on exertion as well as palpitations and lightheaded spells. He also has a cough productive of whitish sputum. He has been having intermittent anorexia but is trying his best to stay nourished. Today he called his primary provider about this shortness of breath and palpitations and was advised to come to the emergency room for further evaluation. He was found to be in atrial fibrillation with a rapid ventricular rate and was started on intravenous diltiazem. He was also felt to have pneumonia and started on intravenous antibiotics and admitted to the intensive care unit. He was also having some intermittent chest pain with these other symptoms. He has felt lightheaded off and on but denies any syncope. He denies paroxysmal nocturnal dyspnea or orthopnea. He has had some mild ankle edema at times with this is presently improved. He just received his first dose of chemotherapy about 1 week ago. Because of the atrial fibrillation, a cardiology consultation was requested. Certain portions of this document may have been dictated utilizing voice recognition technology. Inherent to this technology, typographical and grammatical errors may exist. As much as I am diligent to identify and correct these mistakes, some errors may remain in the document. Review of Systems-Cardiology Review of Systems Other comments Review of 10 organ systems is as per the history of present illness, otherwise negative. All Other Systems Reviewed Negative Unless Noted: Yes [id number]-Yqumrg Hx Patient Social History Marrital Status: Living Status: Lives at home independently Smoking Status: Former Smoker 2nd Hand Smoke Exposure: No Have you traveled recently?: No Alcohol Use?: No Substance type: Marijuana Pt feels they are or have been: No Immunizations Up To Date Tetanus Booster (TDap): Unknown Past Medical History PMH As described under Assessment. Family Medical History Family Medical History: The patient does not know of any family history of premature coronary artery disease in first-degree relatives. Allergies and Home Medications Allergies Coded Allergies: No Known Drug Allergies (Unverified , 08/26/21) Patient Home Medication List Home Medication List Reviewed: Yes Hydrocodone/Acetaminophen (Hydrocodone-Acetamin 10-325 mg) 10 Mg-325 Mg Tablet, 1 EACH PO Q4H PRN for PAIN-MODERATE (5-7), (Reported) Entered as Reported by: JORGE LUU on 11/16/21 1452 Last Action: Reviewed Metoprolol Succinate (Metoprolol Succinate) 50 Mg Tab.er.24h, 50 MG PO BID, (Reported) Entered as Reported by: MEHNAZ JORGE on 08/19/21 1205 Last Action: Reviewed Morphine Sulfate (Ms Contin) 15 Mg Tablet.er, 15 MG PO Q12H PRN for PAIN-SEVERE (8-10), (Reported) Entered as Reported by: ANICETO MARTINEZ on 09/07/21 0827 Last Action: Reviewed Ondansetron (Ondansetron Odt) 8 Mg Tab.rapdis, 8 MG PO Q6H PRN for NAUSEA/VOMITING-1ST LINE, (Reported) Entered as Reported by: JORGE LUU on 11/16/21 1448 Last Action: Reviewed Rivaroxaban (Xarelto) 20 Mg Tablet, 20 MG PO DAILY, (Reported) Entered as Reported by: JORGE LUU on 11/16/21 1448 Last Action: Reviewed Discontinued Medications Albuterol Sulfate (Ventolin Hfa) 1 Puff Puff, 2 PUFF INH Q4H PRN for SHORTNESS OF BREATH, (Reported) Discontinued Reason: No Longer Taking Entered as Reported by: DEAN ELLISON on 08/20/21 0759 Last Action: Discontinued Aspirin (Aspir 81) 81 Mg Tablet.dr, 81 MG PO DAILY, (Reported) Discontinued Reason: No Longer Taking Entered as Reported by: SONNY BRIONES on 11/13/18 0940 Last Action: Discontinued Hydrocodone/Acetaminophen (Hydrocodone-Acetamin 7.5-325) 7.5 Mg-325 Mg Tablet, 1 EACH PO Q4H, (Reported) Discontinued Reason: No Longer Taking Entered as Reported by: ANICETO MARTINEZ on 09/07/21 0830 Last Action: Discontinued Morphine Sulfate (Morphine Sulfate ER) 15 Mg Tablet.er, 1 EA PO Q4H PRN for PAIN-MODERATE (5-7), (Reported) Discontinued Reason: Duplicate Order Entered as Reported by: JORGE ALONSOZANT on 11/16/21 1448 Last Action: Discontinued Exam Vital Signs Vital Signs Date Time Temp Pulse Resp B/P (MAP) Pulse Ox O2 Delivery O2 Flow Rate FiO2 11/16/21 16:00 83 15 118/72 (87) 100 11/16/21 15:56 Room Air 11/16/21 14:05 36.2 21 Physical Exam General: Alert. No acute distress. He appears chronically ill and older than his stated age. Eye: Extraocular movements are intact. Conjunctivae are clear. There are no xanthelasma. HENT: Normocephalic. Atraumatic. Carotid pulsations 2/2 without bruits. Neck: Jugular venous pressure does not appear elevated. No thyromegaly appreciated. Respiratory: Lungs have some scattered upper airway sounds versus rhonchi b ilaterally. Respirations are non-labored. Breath sounds are equal. Symmetrical chest wall expansion. Cardiovascular: Tachycardia with irregular rhythm. No murmur. No gallop. Point of maximal impulse is not appear displaced. Good pulses equal in all extremi ties. No edema. Gastrointestinal: Soft. Normal bowel sounds. Skin: Skin turgor is normal. There is no pallor. Musculoskeletal: No kyphosis or scoliosis appreciated. Neurologic: Alert and oriented to person, place, time. Cranial nerves 3-12 appear grossly intact. The patient has good motor tone strength in the upper and lower extremities bilaterally. Psychiatric: Cooperative. Appropriate mood & affect. Labs Laboratory Tests Test 11/16/21 09:35 11/16/21 12:15 11/16/21 14:19 Range/Units White Blood Count 4.9 4.3-11.0 10^3/uL Red Blood Count 2.96 L 4.30-5.52 10^6/uL Hemoglobin 9.1 L 13.3-17.7 g/dL Hematocrit 24 L 40-54 % Mean Corpuscular Volume 82 80-99 fL Mean Corpuscular Hemoglobin 31 25-34 pg Mean Corpuscular Hemoglobin Concent 37 H 32-36 g/dL Red Cell Distribution Width 16.7 H 10.0-14.5 % Platelet Count 76 L 130-400 10^3/uL Mean Platelet Volume 11.9 9.0-12.2 fL Immature Granulocyte % (Auto) 1 % Neutrophils (%) (Auto) 67 42-75 % Lymphocytes (%) (Auto) 22 12-44 % Monocytes (%) (Auto) 9 0-12 % Eosinophils (%) (Auto) 0 0-10 % Basophils (%) (Auto) 0 0-10 % Neutrophils # (Auto) 3.3 1.8-7.8 10^3/uL Lymphocytes # (Auto) 1.1 1.0-4.0 10^3/uL Monocytes # (Auto) 0.4 0.0-1.0 10^3/uL Eosinophils # (Auto) 0.0 0.0-0.3 10^3/uL Basophils # (Auto) 0.0 0.0-0.1 10^3/uL Immature Granulocyte # (Auto) 0.1 0.0-0.1 10^3/uL Percent Immature Platelet Fraction 5.5 0.0-7.6 % Prothrombin Time 19.6 H 12.2-14.7 SEC INR Comment 1.6 H 0.8-1.4 Activated Partial Thromboplast Time 37 H 24-35 SEC Sodium Level 131 L 135-145 MMOL/L Potassium Level 3.9 3.6-5.0 MMOL/L Chloride Level 93 L 98-107 MMOL/L Carbon Dioxide Level 19 L 21-32 MMOL/L Anion Gap 19 H 5-14 MMOL/L Blood Urea Nitrogen 55 H 7-18 MG/DL Creatinine 2.06 H 0.60-1.30 MG/DL Estimat Glomerular Filtration Rate 34 BUN/Creatinine Ratio 27 Glucose Level 93 70-105 MG/DL Lactic Acid Level 2.50 *H 2.08 *H 1.66 0.50-2.00 MMOL/L Calcium Level 8.5 8.5-10.1 MG/DL Corrected Calcium 9.4 8.5-10.1 MG/DL Magnesium Level 1.0 *L 1.6-2.4 MG/DL Total Bilirubin 3.5 H 0.1-1.0 MG/DL Aspartate Amino Transf (AST/SGOT) 104 H 5-34 U/L Alanine Aminotransferase (ALT/SGPT) 39 0-55 U/L Alkaline Phosphatase 163 H 40-136 U/L Troponin I < 0.028 <0.028 NG/ML C-Reactive Protein High Sensitivity 6.67 H 0.00-0.50 MG/DL B-Type Natriuretic Peptide 125.4 H <100.0 PG/ML Total Protein 5.8 L 6.4-8.2 GM/DL Albumin 2.9 L 3.2-4.5 GM/DL Procalcitonin 1.01 H <0.10 NG/ML Radiology LABS (10/19/2021): Sodium 131. Potassium 4.2. BUN 12. Creatinine 0.81. GFR 96. Glucose 93. Total bilirubin 1. Alkaline phosphatase 236. AST 115. ALT 48. WBC 2.6. Hemoglobin 9.9. Platelets 173,000. ELECTROCARDIOGRAM (09/18/2021): Atrial fibrillation with a ventricular rate of 111 bpm with nonspecific intraventricular conduction delay and diffuse, nonspecific ST-T wave changes. LABS (09/11/2021): Sodium 131. Potassium 4.1. BUN 12. Creatinine 0.72. GFR 100. Glucose 96. Total bilirubin 1.7 (high). Alkaline phosphatase 230 (high). AST 102 (high). ALT 44. PET/CT SKULL BASE TO MID THIGH (08/31/2021): 1. Extensive hypermetabolic lymphadenopathy in the mediastinum, patti hepatis, and retroperitoneum as well as within a lesion in the right lobe of the liver. No definite primary site of malignancy is detected. Note is made of an indeterminate nodule in the right parotid gland. ELECTROCARDIOGRAM (08/26/2021): Atrial fibrillation with a ventricular rate of [address]-T wave changes. CT ABDOMEN/PELVIS WITH CONTRAST (08/15/2021): 1. Interval development of widespread hepatic masses most suggestive of marked metastatic disease. Many of the lesions are hypervascular but some are also centrally necrotic. A large subcapsular lesion within the dome of the diaphragm has internal calcifications and there is a small adjacent subcapsular hematoma. There is no current active contrast extravasation. 2. Cirrhotic morphology of the liver with gastroesophageal and splenic varices. 3. Extensive metastatic adenopathy within the portacaval region within the chest and along the descending thoracic aorta and throughout the retroperitoneum compatible with metastatic disease. 4. No definitive lytic or blastic osseous lesion. 5. No findings of bowel obstruction or evidence of a colonic mass. 6. Mild pancreatic ductal dilatation without evidence to suggest a pancreatic mass. 7. Possible trace linear thrombosis within the main portal vein. 8. As there is no definitive primary neoplasm evident on this examination consider imaging of the chest to evaluate for the possibility of a lung cancer. ECG Impression ECG Comment Electrocardiogram from the emergency room showed atrial fibrillation with a ventricular rate of 147 bpm with low voltage in the limb leads and nonspecific ST-T wave changes. Diagnosis/Problems Diagnosis/Problems (1) Permanent atrial fibrillation Assessment & Plan: He has permanent atrial fibrillation and presented with tachycardia. This may be related to the sepsis. His heart rate improved with intravenous diltiazem. He did take his metoprolol this morning. I will give him an extra dose of metoprolol succinate and increase his daily dose. Then we can see about getting him weaned off intravenous diltiazem. He should continue Xarelto for stroke prophylaxis. Given the acute kidney injury, I would suggest holding Xarelto until we see how his renal function does over the next 24-48 hours. (2) Primary hypertension Assessment & Plan: We will need to watch his blood pressure on the higher dose of metoprolol which I am increasing due to the atrial fibrillation and tachycardia. (3) Acute kidney injury Assessment & Plan: Most likely due to sepsis. He is receiving intravenous fluids. He has a normal ejection fraction so he should be able to tolerate at least a couple of liters of fluid. (4) Sepsis Status: Acute Assessment & Plan: This appears to be due to pneumonia. The hospitalist is managing this condition. Because of the sepsis, we will need to be cautious with antihypertensive medication. 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 Problem Qualifiers (1) Sepsis: Sepsis type: sepsis due to unspecified organism Sepsis acute organ dysfunction status: with acute organ dysfunction Severe sepsis acute organ dysfunction type: acute renal failure Acute renal failure type: unspecified Severe sepsis shock status: without septic shock Qualified Codes: A41.9 - Sepsis, unspecified organism; R65.20 - Severe sepsis without septic shock; N17.9 - Acute kidney failure, unspecified SAUL CHOWDHURY JR, MD Nov 16, 2021 16:40
[2021-11-16] MEDS: NS IV 1000 ML 1,000 ML IV SCH ×2 (16:43→23:53)
--- NOTE | 2021-11-16 16:46 | Tele-ICU Progress Note ---
Progress Note Video assessment done , Hemodynamically stable Available charting reviewed, discussed with RN NO TELE-ICU CONSULT REQUESTED CONTINUE TO MONITOR PER USUAL TELE-ICU PROTOCOL PNA suspected sepsis, immunocompromized with on chemotherapy - cefepime - gentle hydration JONATHAN - hydration , follow A fib with RVR - as per cards Mediastinal mass on PET scan done in August - suspected metastatic mass given h/o Liver cancer No need for Tele-ICU interventions Plans as delineated by bedside physicians / consultants Focused Exam Lactate Level 11/16/21 09:35: Lactic Acid Level 2.50*H 11/16/21 12:15: Lactic Acid Level 2.08*H 11/16/21 14:19: Lactic Acid Level 1.66 Height, Weight, BMI Height: 6'0" Weight: 200lbs. oz. [id number]; 19.89 BMI Method:Estimated Lactic Acid Level Laboratory Tests Test 11/16/21 14:19 Lactic Acid Level 1.66 MMOL/L (0.50-2.00) YEISON BARON MD Nov 16, 2021 16:46
[2021-11-16] MEDS ORDERED: meTOproloL SUCCINATE 50 MG (TOPROL XL) TAB PO NR (17:00)
[2021-11-16 17:15] LABS: BILIRUBIN,URINE NEGATIVE (NEGATIVE); CLARITY,URINE CLEAR; COLOR,URINE YELLOW; GLUCOSE, URINE (UA) NEGATIVE (NEGATIVE); KETONES,URINE TRACE (NEGATIVE); LEUKOCYTE ESTERASE ,URINE NEGATIVE (NEGATIVE); NITRITE,URINE NEGATIVE (NEGATIVE); PH,URINE 5.5 (5-9); PROTEIN,URINE TRACE (NEGATIVE)
[2021-11-16 17:28] LABS: BACTERIA,URINE FEW /HPF; RBC,URINE RARE /HPF; SQUAMOUS EPITHELIAL CELL,UR RARE /HPF; WBC,URINE 0-2 /HPF
[2021-11-16] MEDS: CEFEPIME INJECTION 1,000 MG in NS (IVPB) 50 ML IV SCH (18:47)
[2021-11-17] MEDS: RT-ALBUTEROL/IPRATROPIUM 3 ML (DUONEB) VIAL INH SCH ×4 (03:04→20:22)
[2021-11-17 03:15] LABS: BASOPHILS % (AUTO) 0 % (0-10); EOSINOPHILS % (AUTO) 0 % (0-10); HEMATOCRIT 21 % (40-54); HEMOGLOBIN 7.6 g/dL (13.3-17.7); LYMPHOCYTES # (AUTO) 0.7 10^3/uL (1.0-4.0); LYMPHOCYTES % (AUTO) 22 % (12-44); MEAN CORPUSCULAR HEMOGLOBIN 31 pg (25-34); MEAN CORPUSCULAR HGB CONC 36 g/dL (32-36); MEAN CORPUSCULAR VOLUME 84 fL (80-99); MEAN PLATELET VOLUME 11.4 fL (9.0-12.2); MONOCYTES # (AUTO) 0.4 10^3/uL (0.0-1.0); MONOCYTES % (AUTO) 12 % (0-12); NEUTROPHILS # (AUTO) 2.2 10^3/uL (1.8-7.8); NEUTROPHILS % (AUTO) 65 % (42-75); WHITE BLOOD COUNT 3.3 10^3/uL (4.3-11.0)
[2021-11-17 03:23] LABS: ALBUMIN 2.5 GM/DL (3.2-4.5); POTASSIUM 3.8 MMOL/L (3.6-5.0)
[2021-11-17 03:25] LABS: CALCIUM 7.6 MG/DL (8.5-10.1)
[2021-11-17 03:28] LABS: PLATELET COUNT 46 10^3/uL (130-400); SMEAR SCAN COMMENT YES
[2021-11-17 03:29] LABS: PHOSPHORUS 3.5 MG/DL (2.3-4.7)
[2021-11-17 03:30] LABS: CREATININE SERUM 1.94 MG/DL (0.60-1.30)
[2021-11-17] MEDS: CEFEPIME INJECTION 1,000 MG in NS (IVPB) 50 ML IV SCH ×3 (03:43→19:02)
[2021-11-17] MEDS: POTASSIUM CL 10MEQ/50ML IVPB 50 ML IV SCH (03:57)
[2021-11-17] MEDS: KCL 20 MEQ TAB (K-DUR) PO SCH (03:58)
[2021-11-17] MEDS: MAGNESIUM 1 GM/100 ML IVPB 100 ML IV SCH ×3 (04:03→05:43)
[2021-11-17] MEDS: meTOprolol SUCCINATE 100 MG (TOPROL XL) TAB PO SCH (08:14)
[2021-11-17] MEDS: NS IV 1000 ML 1,000 ML IV SCH ×4 (08:14→22:34)
--- NOTE | 2021-11-17 09:48 | Cardiology Progress Note ---
Progress Note-Cardiology Events since last exam Date Seen by Provider: Nov 17, 2021 Time Seen by Provider: 09:46 Events since last exam I am following him due to atrial fibrillation. He was sitting up in bed using a nebulizer. He does not normally use any sort of pulmonary medication at home. He had a bowel movement this morning but has some abdominal discomfort in the lower quadrants. He denies chest discomfort. His breathing is improving but not back to his baseline. He denies palpitations, syncope, or ankle edema. Certain portions of this document may have been dictated utilizing voice recognition technology. Inherent to this technology, typographical and grammatical errors may exist. As much as I am diligent to identify and correct these mistakes, some errors may remain in the document. Vitals Last set of Vitals Signs Vital Signs 11/16/21 11/17/21 11/17/21 14:05 11:31 13:00 Temp 36.7 Pulse 79 Resp 14 B/P (MAP) 102/68 (79) Pulse Ox 95 O2 Delivery Nasal Cannula O2 Flow Rate 2.00 FiO2 21 Labs Labs Laboratory Tests 11/17/21 03:06 11/17/21 12:00 Exam Vital Signs Vital Signs Date Time Temp Pulse Resp B/P (MAP) Pulse Ox O2 Delivery O2 Flow Rate FiO2 11/17/21 13:00 79 14 102/68 (79) 95 Nasal Cannula 2.00 11/17/21 11:31 36.7 11/16/21 14:05 21 Physical Exam General: Alert. No acute distress. He appears chronically ill and older than his stated age. He is wearing oxygen by nasal cannula. Eye: No xanthelasma. HENT: Normocephalic. Neck: Jugular venous pressure does not appear elevated. Respiratory: Lungs are clear to auscultation. Respirations are non-labored. Breath sounds are equal. Symmetrical chest wall expansion. Cardiovascular: Normal rate. Regular rhythm. No murmur. No gallop. No edema. Gastrointestinal: Soft. Normal bowel sounds. Skin: Warm. Dry. Neurologic: Alert and oriented to person, place, time. Cranial nerves 3-11 grossly intact. Psychiatric: Cooperative. Appropriate mood & affect. Labs Laboratory Tests Test 11/16/21 14:19 11/16/21 16:50 11/17/21 03:06 11/17/21 12:00 Range/Units Lactic Acid Level 1.66 0.50-2.00 MMOL/L Urine Color YELLOW Urine Clarity CLEAR Urine pH 5.5 5-9 Urine Specific [place] 1.025 H 1.016-1.022 Urine Protein TRACE H NEGATIVE Urine Glucose (UA) NEGATIVE NEGATIVE Urine Ketones TRACE H NEGATIVE Urine Nitrite NEGATIVE NEGATIVE Urine Bilirubin NEGATIVE NEGATIVE Urine Urobilinogen 2.0 < = 1.0 MG/DL Urine Leukocyte Esterase NEGATIVE NEGATIVE Urine RBC (Auto) NEGATIVE NEGATIVE Urine RBC RARE /HPF Urine WBC 0-2 /HPF Urine Squamous Epithelial Cells RARE /HPF Urine Crystals NONE /LPF Urine Bacteria FEW H /HPF Urine Casts NONE /LPF Urine Mucus NEGATIVE /LPF Urine Culture Indicated CULTURE PENDING White Blood Count 3.3 L 4.3 4.3-11.0 10^3/uL Red Blood Count 2.49 L 2.56 L 4.30-5.52 10^6/uL Hemoglobin 7.6 L 7.8 L 13.3-17.7 g/dL Hematocrit 21 L 21 L 40-54 % Mean Corpuscular Volume 84 84 80-99 fL Mean Corpuscular Hemoglobin 31 31 25-34 pg Mean Corpuscular Hemoglobin Concent 36 36 32-36 g/dL Red Cell Distribution Width 16.5 H 16.7 H 10.0-14.5 % Platelet Count 46 L 48 L 130-400 10^3/uL Mean Platelet Volume 11.4 11.4 9.0-12.2 fL Immature Granulocyte % (Auto) 0 1 % Neutrophils (%) (Auto) 65 67 42-75 % Lymphocytes (%) (Auto) 22 17 12-44 % Monocytes (%) (Auto) 12 15 H 0-12 % Eosinophils (%) (Auto) 0 0 0-10 % Basophils (%) (Auto) 0 0 0-10 % Neutrophils # (Auto) 2.2 2.9 1.8-7.8 10^3/uL Lymphocytes # (Auto) 0.7 L 0.7 L 1.0-4.0 10^3/uL Monocytes # (Auto) 0.4 0.7 0.0-1.0 10^3/uL Eosinophils # (Auto) 0.0 0.0 0.0-0.3 10^3/uL Basophils # (Auto) 0.0 0.0 0.0-0.1 10^3/uL Immature Granulocyte # (Auto) 0.0 0.0 0.0-0.1 10^3/uL Percent Immature Platelet Fraction 5.9 6.0 0.0-7.6 % Sodium Level 131 L 135-145 MMOL/L Potassium Level 3.8 3.6-5.0 MMOL/L Chloride Level 97 L 98-107 MMOL/L Carbon Dioxide Level 18 L 21-32 MMOL/L Anion Gap 16 H 5-14 MMOL/L Blood Urea Nitrogen 50 H 7-18 MG/DL Creatinine 1.94 H 0.60-1.30 MG/DL Estimat Glomerular Filtration Rate 37 BUN/Creatinine Ratio 26 Glucose Level 85 70-105 MG/DL Calcium Level 7.6 L 8.5-10.1 MG/DL Corrected Calcium 8.8 8.5-10.1 MG/DL Phosphorus Level 3.5 2.3-4.7 MG/DL Magnesium Level 1.1 *L 1.6-2.4 MG/DL Total Bilirubin 3.0 H 0.1-1.0 MG/DL Aspartate Amino Transf (AST/SGOT) 90 H 5-34 U/L Alanine Aminotransferase (ALT/SGPT) 35 0-55 U/L Alkaline Phosphatase 139 H 40-136 U/L Total Protein 5.0 L 6.4-8.2 GM/DL Albumin 2.5 L 3.2-4.5 GM/DL Smear Scan YES Neutrophils % (Manual) 66 % Lymphocytes % (Manual) 22 % Monocytes % (Manual) 10 % Eosinophils % (Manual) 1 % Basophils % (Manual) 0 % Band Neutrophils 1 % Smudge Cells SLIGHT Anisocytosis SLIGHT [place] Cells SLIGHT Diagnosis/Problems Diagnosis/Problems (1) Permanent atrial fibrillation Assessment & Plan: He has permanent atrial fibrillation and presented with tachycardia. This may be related to the sepsis. His heart rate improved with intravenous diltiazem. I doubled his dose of metoprolol succinate and he was able to wean off diltiazem last evening but early this morning developed recurrent tachycardia and was placed back on diltiazem infusion. I have again asked the nurse to wean off the diltiazem. The hospitalist and pharmacist are trying to decide about the Xarelto. I would not be opposed to holding this for 1 more day until we see what happens with his thrombocytopenia. If we do decide to restart Xarelto today, he would need the renal adjusted dose due to creatinine clearance less than 50. (2) Primary hypertension Assessment & Plan: We will need to watch his blood pressure on the higher dose of metoprolol which I increased due to the atrial fibrillation and tachycardia as outlined above. (3) Acute kidney injury Assessment & Plan: Most likely due to sepsis. He received intravenous fluids due to the sepsis. He has a normal ejection fraction so he should be able to tolerate at least a couple of liters of fluid. His renal function is starting to improve. We will need to watch this closely. (4) Pancytopenia Assessment & Plan: I suspect this is related to the chemotherapy he received about 1 week ago. I have ordered a consultation from his oncologist. We can also get their opinion about anticoagulation in the setting of his thrombocytopenia. (5) Sepsis Status: Acute Assessment & Plan: This appears to be due to pneumonia. The hospitalist is managing this condition. Because of the sepsis, we will need to be cautious with antihypertensive medication. 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 As above, I have ordered an oncology consultation from his outpatient oncologist. Problem Qualifiers (1) Sepsis: Sepsis type: sepsis due to unspecified organism Sepsis acute organ dysfunction status: with acute organ dysfunction Severe sepsis acute organ dysfunction type: acute renal failure Acute renal failure type: unspecified Severe sepsis shock status: without septic shock Qualified Codes: A41.9 - Sepsis, unspecified organism; R65.20 - Severe sepsis without septic shock; N17.9 - Acute kidney failure, unspecified SAUL CHOWDHURY JR, MD Nov 17, 2021 09:48
[2021-11-17] MEDS: dilTIAZem DRIP PRE-MIX 125 ML IV SCH (10:57)
--- NOTE | 2021-11-17 11:08 | Physical Therapy Evaluation ---
PT Evaluation-General Medical Diagnosis Admission Date Nov 16, 2021 at 11:56 Medical Diagnosis: A-fib with RVR Onset Date: Nov 16, 2021 Therapy Diagnosis Therapy Diagnosis: generalized weakness/debility Height/Weight Height (Feet): 6 Height (Inches): 0 Weight (Pounds): 200 Precautions Precautions/Isolations: Fall Prevention, Standard Precautions Referral Physician: Tuyet Reason for Referral: Evaluation/Treatment Medical History History of Falls (past yr): Yes Prior Surgery (last 100 days): No Additional Medical History recently diagnosed with liver cancer Current History ER secondary to SOA and cough Reviewed History: Yes Social History Home: Single Level Current Living Status: Alone Entry Into Home: Stairs Without Railing PT Steps Into Home: 1 Prior Prior Level of Function SCALE: Activities may be completed with or without assistive devices. 7-Msakjmhvih-fiqzcdd completes the activity by him/herself with no assistance from a helper. 5-Set-up or Clean-up Assistance-helper sets up or cleans up; patient completes activity. [place] assists only prior to or following the activity. 4-Supervision or Touching Assistance-helper provides verbal cues and/or touching/steadying and/or contact guard assistance as patient completes activity. Assistance may be provided throughout the activity or intermittently. 3-Partial/Moderate Assistance-helper does LESS THAN HALF the effort. [place] lifts, holds or supports trunk or limbs, but provides less than half the effort. 2-Substantial/Maximal Assistance-helper does MORE THAN HALF the effort. [place] lifts or holds trunk or limbs and provides more than half the effort. 5-Mcaiymmne-ohffsf does ALL the effort. Patient does none of the effort to complete the activity. Or, the assistance of 2 or more helpers is required for the patient to complete the activity. If activity was not attempted, code reason: 7-Patient Refused. 9-Not Applicable-not attempted and the patient did not perform the activity before the current illness, exacerbation or injury. 10-Not Attempted due to Environmental Limitations-(lack of equipment, weather restraints, etc.). 88-Not Attempted due to Medical Conditions or Safety Concerns. Bed Mobility: 6 Transfers (B,C,W/C): 6 Gait: 6 Stairs: 6 Indoor Mobility (Ambulation): Independent Stairs: Independent Prior Devices Use: Other-see list below Prior Device Use: cane PT Evaluation-Current Subjective Patient agrees to PT. He reports he very tired. Objective Patient Orientation: Normal For Age Attachments: IV ROM/Strength ROM Lower Extremities bilateral LE WFL Strength Lower Extremities 4-/5 grossly bilateral LE all planes Integumentary/Posture Bowel Incontinence: No Bladder Incontinence: No Posture slightly kyphotic Neuromuscular (Tone, Coordination, Reflexes) grossly intact Sensory Vision: Wears Glasses Hearing: Functional Transfers Lying to Sitting/Side of Bed(Q: 6 Sit to Stand (QC): 4 Chair/Exh-jq-Acird Xfer(QC): 4 Gait Mode of Locomotion: Walk Anticipated Mode of Locomotion: Walk Walk 10 feet (QC): 4 Walk 50 ft with 2 Turns(QC): 4 Walk 150 ft (QC): 4 Distance: 150' Gait Assistive Device: FWW Comments/Gait Description slow, steady/SBA Balance Sitting Static: Normal Sitting Dynamic: Normal Standing Static: Fair Standing Dynamic: Fair Assessment/Needs Patient able to don socks with set up. Patient c/o dizziness with upright activity. Noted weakness and impaired mobility due to deconditioned state. 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 Goals Longterm Goals PT Shell Trim Operator Goals Time Frame: Nov 28, 2021 Roll Left & Right (QC): 6 Sit to Lying (QC): 6 Lying-Sitting on Side/Bed(QC): 6 Sit to Stand (QC): 6 Chair/Cvo-km-Zemth Xfer(QC): 6 Toilet Transfer (QC): 6 Walk 10 feet (QC): 6 Walk 50ft with 2 Turns (QC): 6 Walk 150 ft (QC): 6 PT Plan Problem List Problem List: Activity Tolerance, Functional Strength, Safety, Balance, Gait, Transfer, Bed Mobility Treatment/Plan Treatment Plan: Continue Plan of Care Treatment Plan: Bed Mobility, Education, Functional Activity [place], Functional Strength, Gait, Safety, Therapeutic Exercise, Transfers Treatment Duration: Nov 28, 2021 Frequency: 6 times per week Estimated Hrs Per Day: .25 hour per day Patient and/or Family Agrees t: Yes Time/GCodes Time In: 1015 Time Out: 1031 Total Billed Treatment Time: 16 Total Billed Treatment 1 visit EVModC 16 min SADA SRIVASTAVA PT Nov 17, 2021 11:08
[2021-11-17 12:10] LABS: BASOPHILS % (AUTO) 0 % (0-10); EOSINOPHILS % (AUTO) 0 % (0-10); HEMOGLOBIN 7.8 g/dL (13.3-17.7)
[2021-11-17 12:12] LABS: HEMATOCRIT 21 % (40-54); LYMPHOCYTES # (AUTO) 0.7 10^3/uL (1.0-4.0); LYMPHOCYTES % (AUTO) 17 % (12-44); MEAN CORPUSCULAR HEMOGLOBIN 31 pg (25-34); MEAN CORPUSCULAR HGB CONC 36 g/dL (32-36); MEAN CORPUSCULAR VOLUME 84 fL (80-99); MEAN PLATELET VOLUME 11.4 fL (9.0-12.2); MONOCYTES # (AUTO) 0.7 10^3/uL (0.0-1.0); MONOCYTES % (AUTO) 15 % (0-12); NEUTROPHILS # (AUTO) 2.9 10^3/uL (1.8-7.8); NEUTROPHILS % (AUTO) 67 % (42-75); PLATELET COUNT 48 10^3/uL (130-400); WHITE BLOOD COUNT 4.3 10^3/uL (4.3-11.0)
[2021-11-17 12:56] LABS: BAND NEUTROPHILS 1 %; EOSINOPHILS % (MANUAL) 1 %; LYMPHOCYTES % (MANUAL) 22 %; MONOCYTES % (MANUAL) 10 %; NEUTROPHILS % (MANUAL) 66 %
[2021-11-17 12:57] LABS: ANISOCYTOSIS SLIGHT; BASOPHILS % (MANUAL) 0 %; BURR CELLS SLIGHT
--- NOTE | 2021-11-17 13:58 | Progress Note ---
Subjective Subjective/Events-last exam Patient states that he is feeling better this AM. Ate 25% of his breakfast and denies any N/V. States that he does feel distended. Has not been up out of bed since arrival. Review of Systems General: Fatigue, Malaise Pulmonary: No Dyspnea, No Cough Cardiovascular: Edema; No: Chest Pain, Palpitations Gastrointestinal: Abdominal Pain; No: Nausea, Vomiting Neurological: Weakness, Incoordination Focused Exam Lactate Level 11/16/21 09:35: Lactic Acid Level 2.50*H 11/16/21 12:15: Lactic Acid Level 2.08*H 11/16/21 14:19: Lactic Acid Level 1.66 Objective Exam Last Set of Vital Signs Vital Signs Date Time Temp Pulse Resp B/P (MAP) Pulse Ox O2 Delivery O2 Flow Rate FiO2 11/17/21 12:44 84 11/17/21 12:00 20 123/80 (94) 96 Nasal Cannula 2.00 11/17/21 11:31 36.7 11/16/21 14:05 21 Capillary Refill : Less Than 3 Seconds I&O Intake and Output 11/17/21 00:00 Intake Total 1720 ml Output Total 525 ml Balance 1195 ml Intake Oral 520 ml IV Total 1200 ml Output Urine Total 525 ml Daily Weight Change Yes, Greater than 33 lbs General: Alert, Oriented X3, No Acute Distress Lungs: Clear to Auscultation, Normal Air Movement Heart: Regular Rate, No Murmurs Abdomen: Soft, Other (moderate ttp RUQ, + gaurding) Extremities: Other (2+ pitting edema bilateral LE) Neuro: Normal Speech Results/Procedures Lab Laboratory Tests 11/16/21 14:19: Lactic Acid Level 1.66 11/16/21 16:50: Urine Color YELLOW, Urine Clarity CLEAR, Urine pH 5.5, Urine Specific [place] 1.025H, Urine Protein TRACEH, Urine Glucose (UA) NEGATIVE, Urine Ketones TRACEH, Urine Nitrite NEGATIVE, Urine Bilirubin NEGATIVE, Urine Urobilinogen 2.0, Urine Leukocyte Esterase NEGATIVE, Urine RBC (Auto) NEGATIVE, Urine RBC RARE, Urine WBC 0-2, Urine Squamous Epithelial Cells RARE, Urine Crystals NONE, Urine Bacteria FEWH, Urine Casts NONE, Urine Mucus NEGATIVE, Urine Culture Indicated CULTURE PENDING 11/17/21 03:06: White Blood Count 3.3L, Red Blood Count 2.49L, Hemoglobin 7.6L, Hematocrit 21L, Mean Corpuscular Volume 84, Mean Corpuscular Hemoglobin 31, Mean Corpuscular Hemoglobin Concent 36, Red Cell Distribution Width 16.5H, Platelet Count 46L, Mean Platelet Volume 11.4, Immature Granulocyte % (Auto) 0, Neutrophils (%) (Auto) 65, Lymphocytes (%) (Auto) 22, Monocytes (%) (Auto) 12, Eosinophils (%) (Auto) 0, Basophils (%) (Auto) 0, Neutrophils # (Auto) 2.2, Lymphocytes # (Auto) 0.7L, Monocytes # (Auto) 0.4, Eosinophils # (Auto) 0.0, Basophils # (Auto) 0.0, Immature Granulocyte # (Auto) 0.0, Percent Immature Platelet Fraction 5.9, Sodium Level 131L, Potassium Level 3.8, Chloride Level 97L, Carbon Dioxide Level 18L, Anion Gap 16H, Blood Urea Nitrogen 50H, Creatinine 1.94H, Estimat Glomeru lar Filtration Rate 37, BUN/Creatinine Ratio 26, Glucose Level 85, Calcium Level 7.6L, Corrected Calcium 8.8, Phosphorus Level 3.5, Magnesium Level 1.1*L, Total Bilirubin 3.0H, Aspartate Amino Transf (AST/SGOT) 90H, Alanine Aminotransferase (ALT/SGPT) 35, Alkaline Phosphatase 139H, Total Protein 5.0L, Albumin 2.5L, Smear Scan YES 11/17/21 12:00: White Blood Count 4.3, Red Blood Count 2.56L, Hemoglobin 7.8L, Hematocrit 21L, Mean Corpuscular Volume 84, Mean Corpuscular Hemoglobin 31, Mean Corpuscular Hemoglobin Concent 36, Red Cell Distribution Width 16.7H, Platelet Count 48L, Mean Platelet Volume 11.4, Immature Granulocyte % (Auto) 1, Neutrophils (%) (Auto) 67, Lymphocytes (%) (Auto) 17, Monocytes (%) (Auto) 15H, Eosinophils (%) (Auto) 0, Basophils (%) (Auto) 0, Neutrophils # (Auto) 2.9, Lymphocytes # (Auto) 0.7L, Monocytes # (Auto) 0.7, Eosinophils # (Auto) 0.0, Basophils # (Auto) 0.0, Immature Granulocyte # (Auto) 0.0, Percent Immature Platelet Fraction 6.0, Neutrophils % (Manual) 66, Lymphocytes % (Manual) 22, Monocytes % (Manual) 10, Eosinophils % (Manual) 1, Basophils % (Manual) 0, Band Neutrophils 1, Smudge Cells SLIGHT, Anisocytosis SLIGHT, [place] Cells SLIGHT Microbiology 11/16/21 MRSA Screen - Final, Complete MRSA not isolated Assessment/Plan Assessment/Plan (1) Sepsis Status: Acute Assessment & Plan: - Patient started on cefepime given he is on chemotherapy for PNA, Procal and CRP elevated, gentle IVFs given elevated BNP and extensive LE edema 11/17: Continue Cefepime D2, HDS Qualifiers: Qualified Codes: A41.9 - Sepsis, unspecified organism; R65.20 - Severe sepsis without septic shock; N17.9 - Acute kidney failure, unspecified (2) Atrial fibrillation with rapid ventricular response Status: Acute Assessment & Plan: - Cardiology Dr Nguyen's consulted, appreciate recommendations, HR improved with cardizem in ER 11/17: Metoprolol dose increased by Dr Rothman, will continue to monitor and titrate cardizem as tolerated (3) Bilateral pneumonia Status: Acute Assessment & Plan: - Cefepime D1, MAT protocol, not requiring oxygen at this time Qualifiers: Qualified Codes: J18.9 - Pneumonia, unspecified organism (4) Mediastinal mass Status: Acute Assessment & Plan: - Present on PET scan done in August, likely metastatic mass 11/17: Oncology consulted today Dr Alvarez (5) Acute renal failure Status: Acute Assessment & Plan: - Gentle hydration, will continue to monitor 11/17: Improving with gentle hydration Qualifiers: Qualified Codes: N17.9 - Acute kidney failure, unspecified (6) Normocytic anemia Status: Chronic (7) Hypomagnesemia Status: Acute Assessment & Plan: - Replace and repeat level (8) Liver cancer Qualifiers: Qualified Codes: 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
[2021-11-17] MEDS ORDERED: HYDROcodone/APAP 5 MG/325 MG (LORTAB) TAB PO ONE (20:00)
[2021-11-18] MEDS: RT-ALBUTEROL/IPRATROPIUM 3 ML (DUONEB) VIAL INH SCH ×4 (02:45→20:13)
[2021-11-18] MEDS: CEFEPIME INJECTION 1,000 MG in NS (IVPB) 50 ML IV SCH ×3 (03:37→18:48)
[2021-11-18 05:35] LABS: BASOPHILS % (AUTO) 0 % (0-10); EOSINOPHILS % (AUTO) 0 % (0-10)
[2021-11-18 05:37] LABS: HEMOGLOBIN 7.5 g/dL (13.3-17.7); LYMPHOCYTES # (AUTO) 0.9 10^3/uL (1.0-4.0); LYMPHOCYTES % (AUTO) 16 % (12-44); MEAN CORPUSCULAR HEMOGLOBIN 31 pg (25-34); MEAN CORPUSCULAR HGB CONC 37 g/dL (32-36); MEAN CORPUSCULAR VOLUME 83 fL (80-99); MEAN PLATELET VOLUME 10.4 fL (9.0-12.2); MONOCYTES # (AUTO) 0.7 10^3/uL (0.0-1.0); MONOCYTES % (AUTO) 14 % (0-12); NEUTROPHILS # (AUTO) 3.7 10^3/uL (1.8-7.8); NEUTROPHILS % (AUTO) 69 % (42-75); WHITE BLOOD COUNT 5.4 10^3/uL (4.3-11.0)
[2021-11-18 05:46] LABS: ALBUMIN 2.5 GM/DL (3.2-4.5)
[2021-11-18 05:47] LABS: POTASSIUM 3.4 MMOL/L (3.6-5.0)
[2021-11-18 05:48] LABS: CALCIUM 7.6 MG/DL (8.5-10.1)
[2021-11-18 05:52] LABS: PHOSPHORUS 2.7 MG/DL (2.3-4.7)
[2021-11-18 05:53] LABS: CREATININE SERUM 1.68 MG/DL (0.60-1.30)
[2021-11-18 05:55] LABS: MAGNESIUM 1.3 MG/DL (1.6-2.4)
[2021-11-18 06:16] LABS: HEMATOCRIT 20 % (40-54); PLATELET COUNT 36 10^3/uL (130-400)
[2021-11-18] MEDS: MAGNESIUM 1 GM/100 ML IVPB 100 ML IV SCH ×5 (06:33→13:17)
[2021-11-18] MEDS: POTASSIUM CL 10MEQ/50ML IVPB 50 ML IV SCH ×3 (06:33→08:06)
[2021-11-18] MEDS: KCL 20 MEQ TAB (K-DUR) PO SCH (06:33)
[2021-11-18] MEDS ORDERED: MAGNESIUM 1 GM/100 ML IVPB 400 ML IV ONE (06:44)
[2021-11-18] MEDS ORDERED: POTASSIUM CL 10MEQ/50ML IVPB 100 ML IV ONE (06:44)
[2021-11-18] MEDS: meTOprolol SUCCINATE 100 MG (TOPROL XL) TAB PO SCH (08:06)
[2021-11-18] MEDS: NS IV 1000 ML 1,000 ML IV SCH (08:19)
--- NOTE | 2021-11-18 08:21 | Tele-ICU Progress Note ---
Subjective Date Seen by a Provider: Nov 18, 2021 Subjective/Events-last exam This virtual visit was conducted using real time audio/video. Thank you for asking us to see this patient for respiratory insufficiency due to pna, sepsis. Also afib/RVR, JONATHAN, abnormal lytes. Recent events: PMH: [place]ol[place] on chemo., COPD, htn, GERD, anx/dep. PE: Pale, appears chronically ill.O2 sat 87% on 2 LPM NC. HEENT: No obvious masses, adenopathy or JVD. Chest: coarse on auscultation. CV: Irreg 140 BPM, S1 S2 No murmur or added sounds. Abd: Non-tender. Bowel sounds Y. : Unremarkable. Monge N. 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 No obvious focal findings. Extremities: 1+ edema. Capillary refill < 3 seconds. Skin: unremarkable. Results: Elevated BUN 43, Creat 1.68, INR 1.6. Decreased Na 131, K 3.4, Mag 1.3. CXR: L sup mediastinal mass, minimal B lower zone infilts.. Available chart/ vitals / labs / images reviewed. Video assessment done using teleICU camera, rest of exam as per RN. A/P: Respiratory insufficiency: Continue present management with O2, Duonebs Monitor for increasing oxygenation needs and/or need for intubation. Critical Care: critically ill patient. Cont.Dilt., abx, metop., Lovenox held. Replace K and Mag. Discussed with ASHLEY Byrd. Asked RN to reach out to eICU if any questions or concerns later. Time spent with patient/coordination of care with other health professionals (mins): 31 Sepsis Event Evaluation Height, Weight, BMI Height: 6'0" Weight: 200lbs. oz. [id number]; 19.46 BMI Method:Estimated Focused Exam Lactate Level 11/16/21 09:35: Lactic Acid Level 2.50*H 11/16/21 12:15: Lactic Acid Level 2.08*H 11/16/21 14:19: Lactic Acid Level 1.66 Exam Exam Patient acknowledged, consented, and participated in this virtual visit which was conducted using real time audio/video Vital Signs Date Time Temp Pulse Resp B/P (MAP) Pulse Ox O2 Delivery O2 Flow Rate FiO2 11/18/21 08:00 37.1 11/18/21 07:00 121 11/18/21 07:00 102 17 129/87 (101) 97 Nasal Cannula 2.00 11/18/21 06:00 109 17 147/106 (119) 97 Nasal Cannula 2.00 11/18/21 05:00 131 19 122/82 (93) 95 Nasal Cannula 2.00 11/18/21 04:00 96 Room Air 11/18/21 04:00 102 13 126/80 (101) 97 Nasal Cannula 2.00 11/18/21 03:40 112 14 92 Nasal Cannula 2.00 11/18/21 03:00 115 17 Room Air 11/18/21 02:30 104 18 135/92 (106) 96 Room Air 11/18/21 02:00 106 21 130/90 (102) 93 Room Air 11/18/21 01:00 101 11/18/21 01:00 101 17 126/86 (103) 97 Room Air 11/18/21 00:00 104 15 143/83 (100) 92 Room Air 11/17/21 23:59 96 Room Air 11/17/21 23:00 107 21 137/80 (102) 96 Room Air 11/17/21 22:00 97 21 131/86 (99) 98 Room Air 11/17/21 21:00 109 26 126/75 (82) 92 Room Air 11/17/21 20:22 98 Room Air 11/17/21 20:00 98 Room Air 11/17/21 20:00 86 17 128/71 (89) 94 Room Air 11/17/21 19:24 36.6 11/17/21 19:00 Room Air 11/17/21 19:00 80 17 122/81 (95) 93 Room Air 11/17/21 19:00 80 11/17/21 18:00 89 17 128/87 (101) 99 Nasal Cannula 2.00 11/17/21 17:00 102 27 124/82 (96) 90 Nasal Cannula 2.00 11/17/21 16:45 83 15 122/70 (87) 97 Nasal Cannula 2.00 11/17/21 16:30 86 16 122/78 (93) 92 Nasal Cannula 2.00 11/17/21 16:15 80 16 126/75 (92) 95 Nasal Cannula 2.00 11/17/21 16:00 75 11 112/76 (88) 96 Nasal Cannula 2.00 11/17/21 15:42 36.7 11/17/21 15:30 98 Nasal Cannula 2.00 11/17/21 15:00 130 32 111/78 (89) 93 Nasal Cannula 2.00 11/17/21 14:00 88 24 116/63 (80) 96 Nasal Cannula 2.00 11/17/21 13:00 79 14 102/68 (79) 95 Nasal Cannula 2.00 11/17/21 12:44 84 11/17/21 12:00 79 20 123/80 (94) 96 Nasal Cannula 2.00 11/17/21 12:00 97 Nasal Cannula 2.00 11/17/21 11:31 36.7 11/17/21 11:00 75 13 95/62 (73) 94 Nasal Cannula 2.00 11/17/21 10:57 79 110/73 11/17/21 10:00 79 18 110/73 (85) 97 Nasal Cannula 2.00 11/17/21 09:43 96 Room Air 11/17/21 09:00 90 18 126/74 (91) 98 Nasal Cannula 2.00 I & O 11/18/21 07:00 Intake Total 2675 ml Output Total 750 ml Balance 1925 ml Height & Weight Height: 6'0" Weight: 200lbs. oz. [id number]; 19.46 BMI Method:Estimated General Appearance: Mild Distress, Thin HEENT: PERRL/EOMI, Pharynx Normal Neck: Non Tender, Supple Respiratory: No Respiratory Distress, Crackles (}); No Wheezing Cardiovascular: Irregularly Irregular, Tachycardia Capillary Refill: Less Than 3 Seconds Gastrointestinal: soft, guarding (RUQ with soft palpation), tenderness Extremity: Non Tender, No Calf Tenderness, Pedal Edema (2+ to mid tibia bilateral) Neurologic/Psychiatric: Alert, Oriented x3 Results Lab Laboratory Tests 11/16/21 09:35 11/17/21 03:06 11/17/21 12:00 11/18/21 05:20 Assessment/Plan Assessment/Plan See free text Critical Care: Critically Ill Patient LITA MATHUR MD Nov 18, 2021 08:21
--- NOTE | 2021-11-18 09:08 | Cardiology Progress Note ---
Progress Note-Cardiology Events since last exam Date Seen by Provider: Nov 18, 2021 Time Seen by Provider: 09:07 Events since last exam I am following him due to permanent atrial fibrillation. He was weaned off diltiazem infusion for the second time last evening on 11/17. He continues to have a cough which makes him feel short of breath. He does not feel as though the cough has improved. He is bringing up whitish sputum. He denies chest pain, palpitations, syncope, or ankle edema. Certain portions of this document may have been dictated utilizing voice recognition technology. Inherent to this technology, typographical and grammatical errors may exist. As much as I am diligent to identify and correct these mistakes, some errors may remain in the document. Vitals Last set of Vitals Signs Vital Signs 11/16/21 11/18/21 14:05 11:00 Pulse 108 Resp 18 B/P (MAP) 122/92 (102) Pulse Ox 98 O2 Delivery Nasal Cannula O2 Flow Rate 2.00 FiO2 21 Labs Labs Laboratory Tests 11/17/21 12:00 11/18/21 05:20 Exam Vital Signs Vital Signs Date Time Temp Pulse Resp B/P (MAP) Pulse Ox O2 Delivery O2 Flow Rate FiO2 11/18/21 11:00 108 18 122/92 (102) 98 Nasal Cannula 2.00 11/18/21 08:00 37.1 11/16/21 14:05 21 Physical Exam General: Alert. No acute distress. He appears chronically ill and older than his stated age. He is wearing oxygen by nasal cannula. Eye: No xanthelasma. HENT: Normocephalic. Neck: Jugular venous pressure does not appear elevated. Respiratory: Lungs have scattered rhonchi versus upper airway sounds. Respirations are non-labored. Breath sounds are equal. Symmetrical chest wall expansion. Cardiovascular: Normal rate. Regular rhythm. No murmur. No gallop. No edema. Gastrointestinal: Soft. Normal bowel sounds. Skin: Warm. Dry. Neurologic: Alert and oriented to person, place, time. Cranial nerves 3-11 grossly intact. Psychiatric: Cooperative. Appropriate mood & affect. Labs Laboratory Tests Test 11/17/21 12:00 11/18/21 05:20 Range/Units White Blood Count 4.3 5.4 4.3-11.0 10^3/uL Red Blood Count 2.56 L 2.45 L 4.30-5.52 10^6/uL Hemoglobin 7.8 L 7.5 L 13.3-17.7 g/dL Hematocrit 21 L 20 *L 40-54 % Mean Corpuscular Volume 84 83 80-99 fL Mean Corpuscular Hemoglobin 31 31 25-34 pg Mean Corpuscular Hemoglobin Concent 36 37 H 32-36 g/dL Red Cell Distribution Width 16.7 H 16.7 H 10.0-14.5 % Platelet Count 48 L 36 *L 130-400 10^3/uL Mean Platelet Volume 11.4 10.4 9.0-12.2 fL Immature Granulocyte % (Auto) 1 1 % Neutrophils (%) (Auto) 67 69 42-75 % Lymphocytes (%) (Auto) 17 16 12-44 % Monocytes (%) (Auto) 15 H 14 H 0-12 % Eosinophils (%) (Auto) 0 0 0-10 % Basophils (%) (Auto) 0 0 0-10 % Neutrophils # (Auto) 2.9 3.7 1.8-7.8 10^3/uL Lymphocytes # (Auto) 0.7 L 0.9 L 1.0-4.0 10^3/uL Monocytes # (Auto) 0.7 0.7 0.0-1.0 10^3/uL Eosinophils # (Auto) 0.0 0.0 0.0-0.3 10^3/uL Basophils # (Auto) 0.0 0.0 0.0-0.1 10^3/uL Immature Granulocyte # (Auto) 0.0 0.0 0.0-0.1 10^3/uL Neutrophils % (Manual) 66 % Lymphocytes % (Manual) 22 % Monocytes % (Manual) 10 % Eosinophils % (Manual) 1 % Basophils % (Manual) 0 % Band Neutrophils 1 % Smudge Cells SLIGHT Percent Immature Platelet Fraction 6.0 5.9 0.0-7.6 % Anisocytosis SLIGHT Merline Cells SLIGHT Sodium Level 131 L 135-145 MMOL/L Potassium Level 3.4 L 3.6-5.0 MMOL/L Chloride Level 99 98-107 MMOL/L Carbon Dioxide Level 17 L 21-32 MMOL/L Anion Gap 15 H 5-14 MMOL/L Blood Urea Nitrogen 43 H 7-18 MG/DL Creatinine 1.68 H 0.60-1.30 MG/DL Estimat Glomerular Filtration Rate 44 BUN/Creatinine Ratio 26 Glucose Level 108 H 70-105 MG/DL Calcium Level 7.6 L 8.5-10.1 MG/DL Corrected Calcium 8.8 8.5-10.1 MG/DL Phosphorus Level 2.7 2.3-4.7 MG/DL Magnesium Level 1.3 L 1.6-2.4 MG/DL Total Bilirubin 3.0 H 0.1-1.0 MG/DL Aspartate Amino Transf (AST/SGOT) 91 H 5-34 U/L Alanine Aminotransferase (ALT/SGPT) 35 0-55 U/L Alkaline Phosphatase 143 H 40-136 U/L Total Protein 5.0 L 6.4-8.2 GM/DL Albumin 2.5 L 3.2-4.5 GM/DL Smear Scan Diagnosis/Problems Diagnosis/Problems (1) Permanent atrial fibrillation Assessment & Plan: He has permanent atrial fibrillation and presented with tachycardia. This may be related to the sepsis. His heart rate improved with intravenous diltiazem. I doubled his dose of metoprolol succinate and he was able to wean off diltiazem again last evening. The hospitalist and pharmacist are trying to decide about the Xarelto. I would not be opposed to holding this for 1 more day since the thrombocytopenia is slightly worse today. If and when we do decide to restart Xarelto today, he would need the renal adjusted dose due to creatinine clearance less than 50. (2) Primary hypertension Assessment & Plan: We will need to watch his blood pressure on the higher dose of metoprolol which I increased due to the atrial fibrillation and tachycardia as outlined above. Despite having possible sepsis, he has remained normotensive even on the higher dose of beta-melba. (3) Acute kidney injury Assessment & Plan: Most likely due to sepsis. He received intravenous fluids due to the sepsis. He received intravenous fluids which were stopped after he received approximately 3 L. Now he is stressed receiving minimal normal saline to keep IV open. His renal function continues to improve. We will need to watch this closely. (4) Pancytopenia Assessment & Plan: I suspect this is related to the chemotherapy he received about 1 week ago. I ordered a consultation from his oncologist on 11/17. I asked the ICU staff to give his office a call again today. We can also get their opinion about anticoagulation in the setting of his thrombocytopenia. (5) Sepsis Status: Acute Assessment & Plan: This appears to be due to pneumonia. The hospitalist is managing this condition. Because of the sepsis, we will need to be cautious with antihypertensive medication. 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 As above, I have ordered an oncology consultation from his outpatient oncologist. Problem Qualifiers (1) Sepsis: Sepsis type: sepsis due to unspecified organism Sepsis acute organ dysfunction status: with acute organ dysfunction Severe sepsis acute organ dysfunction type: acute renal failure Acute renal failure type: unspecified Severe sepsis shock status: without septic shock Qualified Codes: A41.9 - Sepsis, unspecified organism; R65.20 - Severe sepsis without septic shock; N17.9 - Acute kidney failure, unspecified SAUL CHOWDHURY JR, MD Nov 18, 2021 09:08
--- NOTE | 2021-11-18 09:45 | Physical Therapy Daily Note ---
PT Daily Note-Current Subjective Patient in bed pre tx, agrees to PT, has no complaints of pain at rest. Pain Section J - Health Conditions 1. Rarely or not at all 2. Occasionally 3. Frequently 4. Almost constantly 8. Unable to answer Pain Effect on Sleep: 1 Pain Interference with Therapy: 1 Pain Interference w/Day-to-Day: 1 Appearance Patient in bed post tx with nurse call, phone, tray, all needs met. Mental Status Patient Orientation: Person, Place, Situation Attachments: Oxygen, IV Transfers SCALE: Activities may be completed with or without assistive devices. 9-Dkqkvienur-rkvtlvv completes the activity by him/herself with no assistance from a helper. 5-Set-up or Clean-up Assistance-helper sets up or cleans up; patient completes activity. Mckenzie assists only prior to or following the activity. 4-Supervision or Touching Assistance-helper provides verbal cues and/or touching/steadying and/or contact guard assistance as patient completes activity. Assistance may be provided throughout the activity or intermittently. 3-Partial/Moderate Assistance-helper does LESS THAN HALF the effort. Mckenzie lifts, holds or supports trunk or limbs, but provides less than half the effort. 2-Substantial/Maximal Assistance-helper does MORE THAN HALF the effort. Mckenzie lifts or holds trunk or limbs and provides more than half the effort. 2-Onxwguriz-ihzget does ALL the effort. Patient does none of the effort to comp lete the activity. Or, the assistance of 2 or more helpers is required for the patient to complete the activity. If activity was not attempted, code reason: 7-Patient Refused. 9-Not Applicable-not attempted and the patient did not perform the activity before the current illness, exacerbation or injury. 10-Not Attempted due to Environmental Limitations-(lack of equipment, weather restraints, etc.). 88-Not Attempted due to Medical Conditions or Safety Concerns. Sit to Lying (QC): 4 Lying to Sitting/Side of Bed(Q: 3 Sit to Stand (QC): 4 min assist for supine to sit, CGA for sit to stand and transfers. Patient is dizzy upon sitting to the side of the bed, patient states he is always dizzy. Gait Training Distance: 40' Walk 10 feet (QC): 4 Gait Persons Needed: 1 Gait Assistive Device: FWW patient is unsteady with ambulation but no LOB, needs steadying assist, after getting into the hallway patient states he needs to sit down, explained that there was not a chair available right here and he is able to ambulate back to the bed. Exercises Supine Ex: Ankle pumps, Heel Slides Supine Reps: 20 Treatments bed mobility and transfers, ambulation, LE exercise Assessment Current Status: Poor Progress dizziness impairs functional mobility and safety PT Snf Goals Snf Goals PT Jet Handler Goals Time Frame: Nov 28, 2021 Roll Left & Right (QC): 6 Sit to Lying (QC): 6 Lying-Sitting on Side/Bed(QC): 6 Sit to Stand (QC): 6 Chair/Dhg-vx-Piuua Xfer(QC): 6 Toilet Transfer (QC): 6 Walk 10 feet (QC): 6 Walk 50ft with 2 Turns (QC): 6 Walk 150 ft (QC): 6 PT Plan Problem List Problem List: Activity Tolerance, Functional Strength, Safety, Balance, Gait, Transfer, Bed Mobility, ROM Treatment/Plan Treatment Plan: Continue Plan of Care Treatment Plan: Bed Mobility, Education, Functional Activity Landon, Functional Strength, Gait, Safety, Therapeutic Exercise, Transfers Treatment Duration: Nov 28, 2021 Frequency: 6 times per week Estimated Hrs Per Day: .25 hour per day Patient and/or Family Agrees t: Yes Safety Risks/Education Patient Education: Gait Training, Transfer Techniques, Correct Positioning, Safety Issues Teaching Recipient: Patient Teaching Methods: Demonstration, Discussion Response to Teaching: Reinforcement Needed Time/GCodes Time In: 914 Time Out: 924 Total Billed Treatment Time: 10 Total Billed Treatment 1 visit FA TEODORA ROMAN PT Nov 18, 2021 09:45
--- NOTE | 2021-11-18 10:53 | Progress Note ---
Subjective Subjective/Events-last exam Patient states that he is having some shortness of breath this AM. He is coughing up phelm. Tolerating PO diet and has been up ambulating with PT with walker Review of Systems General: Fatigue Pulmonary: Dyspnea, Cough Cardiovascular: Edema; No: Chest Pain, Palpitations Gastrointestinal: Abdominal Pain; No: Nausea, Vomiting Neurological: Weakness, Incoordination; No: Confusion Focused Exam Lactate Level 11/16/21 09:35: Lactic Acid Level 2.50*H 11/16/21 12:15: Lactic Acid Level 2.08*H 11/16/21 14:19: Lactic Acid Level 1.66 Objective Exam Last Set of Vital Signs Vital Signs Date Time Temp Pulse Resp B/P (MAP) Pulse Ox O2 Delivery O2 Flow Rate FiO2 11/18/21 09:00 105 17 110/68 (82) 97 Nasal Cannula 2.00 11/18/21 08:00 37.1 11/16/21 14:05 21 Capillary Refill : Less Than 3 Seconds I&O Intake and Output 11/18/21 00:00 Intake Total 3450 ml Output Total 950 ml Balance 2500 ml Intake Oral 2200 ml IV Total 1250 ml Output Urine Total 950 ml # Bowel Movements 4 General: Alert, Oriented X3, No Acute Distress Lungs: Normal Air Movement, Other (basilar wheezing, normal work of breathing) Heart: Regular Rate, No Murmurs Abdomen: Soft, Other (diffuse ttp > RUQ) Extremities: Other (3+ pitting edema bilaterally) Neuro: Normal Speech Results/Procedures Lab Laboratory Tests 11/17/21 12:00: White Blood Count 4.3, Red Blood Count 2.56L, Hemoglobin 7.8L, Hematocrit 21L, Mean Corpuscular Volume 84, Mean Corpuscular Hemoglobin 31, Mean Corpuscular Hemoglobin Concent 36, Red Cell Distribution Width 16.7H, Platelet Count 48L, M mirian Platelet Volume 11.4, Immature Granulocyte % (Auto) 1, Neutrophils (%) (Auto) 67, Lymphocytes (%) (Auto) 17, Monocytes (%) (Auto) 15H, Eosinophils (%) (Auto) 0, Basophils (%) (Auto) 0, Neutrophils # (Auto) 2.9, Lymphocytes # (Auto) 0.7L, Monocytes # (Auto) 0.7, Eosinophils # (Auto) 0.0, Basophils # (Auto) 0.0, Immature Granulocyte # (Auto) 0.0, Neutrophils % (Manual) 66, Lymphocytes % (Manual) 22, Monocytes % (Manual) 10, Eosinophils % (Manual) 1, Basophils % (M anual) 0, Band Neutrophils 1, Smudge Cells SLIGHT, Percent Immature Platelet Fraction 6.0, Anisocytosis SLIGHT, Baldwin Cells SLIGHT 11/18/21 05:20: White Blood Count 5.4, Red Blood Count 2.45L, Hemoglobin 7.5L, Hematocrit 20*L, Mean Corpuscular Volume 83, Mean Corpuscular Hemoglobin 31, Mean Corpuscular Hemoglobin Concent 37H, Red Cell Distribution Width 16.7H, Platelet Count 36*L, Mean Platelet Volume 10.4, Immature Granulocyte % (Auto) 1, Neutrophils (%) (Auto) 69, Lymphocytes (%) (Auto) 16, Monocytes (%) (Auto) 14H, Eosinophils (%) (Auto) 0, Basophils (%) (Auto) 0, Neutrophils # (Auto) 3.7, Lymphocytes # (Auto) 0.9L, Monocytes # (Auto) 0.7, Eosinophils # (Auto) 0.0, Basophils # (Auto) 0.0, Immature Granulocyte # (Auto) 0.0, Percent Immature Platelet Fraction 5.9, Sodium Level 131L, Potassium Level 3.4L, Chloride Level 99, Carbon Dioxide Level 17L, Anion Gap 15H, Blood Urea Nitrogen 43H, Creatinine 1.68H, Estimat Glomerular Filtration Rate 44, BUN/Creatinine Ratio 26, Glucose Level 108H, Calcium Level 7.6L, Corrected Calcium 8.8, Phosphorus Level 2.7, Magnesium Level 1.3L, Total Bilirubin 3.0H, Aspartate Amino Transf (AST/SGOT) 91H, Alanine Aminotransferase (ALT/SGPT) 35, Alkaline Phosphatase 143H, Total Protein 5.0L, Albumin 2.5L, Smear Scan Microbiology 11/16/21 Urine Culture - Final, Complete NO GROWTH 11/16/21 MRSA Screen - Final, Complete MRSA not isolated 11/16/21 Blood Culture - Preliminary, Resulted No growth Assessment/Plan Assessment/Plan (1) Sepsis Status: Acute Assessment & Plan: - Patient started on cefepime given he is on chemotherapy for PNA, Procal and CRP elevated, gentle IVFs given elevated BNP and extensive LE edema 9/27: Continue Cefepime D2, HDS 11/18: Cefepime D3, HDS, Stopped IVFs Qualifiers: Qualified Codes: A41.9 - Sepsis, unspecified organism; R65.20 - Severe sepsis without septic shock; N17.9 - Acute kidney failure, unspecified (2) Atrial fibrillation with rapid ventricular response Status: Acute Assessment & Plan: - Cardiology Dr Nguyen's consulted, appreciate recommendations, HR improved with cardizem in ER 11/17: Metoprolol dose increased by Dr Rothman, will continue to monitor and titrate cardizem as tolerated 11/18: Rate controlled, off OAC due to severe thrombocytopenia (3) Bilateral pneumonia Status: Acute Assessment & Plan: - Cefepime D1, MAT protocol, not requiring oxygen at this time 11/18: D3 Cefepime, Encouraged IS, Started on PO steroids today Qualifiers: Qualified Codes: J18.9 - Pneumonia, unspecified organism (4) Mediastinal mass Status: Acute Assessment & Plan: - Present on PET scan done in August, likely metastatic mass 11/17: Oncology consulted today Dr Alvarez (5) Acute renal failure Status: Acute Assessment & Plan: - Gentle hydration, will continue to monitor 11/17: Improving with gentle hydration Qualifiers: Qualified Codes: N17.9 - Acute kidney failure, unspecified (6) Thrombocytopenia Status: Acute Assessment & Plan: 11/18: Holding OAC and Lovenox, SCDs for DVT Pxx (7) Normocytic anemia Status: Chronic (8) Hypomagnesemia Status: Acute Assessment & Plan: - Replace and repeat level (9) Liver cancer Qualifiers: Qualified Codes: 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
[2021-11-18] MEDS: predniSONE 20 MG TAB PO SCH (15:11)
[2021-11-18 16:00] VITALS: BP 132/77
[2021-11-18 19:14] VITALS: BP 116/73
[2021-11-19] VITALS (9 sets, daily range): BP systolic 110–137; BP diastolic 61–85
[2021-11-19] MEDS: CEFEPIME INJECTION 1,000 MG in NS (IVPB) 50 ML IV SCH ×3 (02:43→18:02)
[2021-11-19] MEDS: RT-ALBUTEROL/IPRATROPIUM 3 ML (DUONEB) VIAL INH SCH ×3 (03:06→15:39)
[2021-11-19] MEDS: HYDROcodone/APAP 5 MG/325 MG (LORTAB) TAB PO PRN ×5 (03:09→21:06)
[2021-11-19] MEDS: predniSONE 20 MG TAB PO SCH (05:04)
[2021-11-19 05:29] LABS: BASOPHILS % (AUTO) 0 % (0-10); EOSINOPHILS % (AUTO) 0 % (0-10)
[2021-11-19 05:31] LABS: HEMATOCRIT 21 % (40-54); HEMOGLOBIN 7.4 g/dL (13.3-17.7); LYMPHOCYTES # (AUTO) 0.8 10^3/uL (1.0-4.0); LYMPHOCYTES % (AUTO) 11 % (12-44); MEAN CORPUSCULAR HEMOGLOBIN 30 pg (25-34); MEAN CORPUSCULAR HGB CONC 36 g/dL (32-36); MEAN CORPUSCULAR VOLUME 84 fL (80-99); MONOCYTES # (AUTO) 0.9 10^3/uL (0.0-1.0); MONOCYTES % (AUTO) 13 % (0-12); NEUTROPHILS # (AUTO) 5.2 10^3/uL (1.8-7.8); NEUTROPHILS % (AUTO) 75 % (42-75)
[2021-11-19 05:38] LABS: PLATELET COUNT 28 10^3/uL (130-400)
[2021-11-19 05:46] LABS: ALBUMIN 2.6 GM/DL (3.2-4.5); POTASSIUM 3.9 MMOL/L (3.6-5.0)
[2021-11-19 05:47] LABS: CALCIUM 7.9 MG/DL (8.5-10.1)
[2021-11-19 05:49] LABS: TOTAL PROTEIN 5.5 GM/DL (6.4-8.2)
[2021-11-19 05:50] LABS: BILIRUBIN,TOTAL 2.2 MG/DL (0.1-1.0)
[2021-11-19 05:52] LABS: CREATININE SERUM 1.6 MG/DL (0.60-1.30)
[2021-11-19 05:53] LABS: PHOSPHORUS 2.9 MG/DL (2.3-4.7)
[2021-11-19 05:55] LABS: MAGNESIUM 1.6 MG/DL (1.6-2.4)
[2021-11-19] MEDS: meTOprolol SUCCINATE 100 MG (TOPROL XL) TAB PO SCH (07:40)
--- NOTE | 2021-11-19 09:19 | Oncology Consultation ---
Visit Information Visit Information Date of Admission Nov 16, 2021 at 11:56 Attending Physician [facility] Admitting Physician Admitting Physician: Juanita Benz MD Attending Physician: Juanita Benz MD Chief Complaint Pneumonia and aFib with RVR, choleangiocarcinoma on chemotherapy Interval History History of Present Illness: Rene Lopez is a 66yo M with metastatic cholangiocarcinoma under medical oncologist Dr Alvarez. He was started on gemcit abine + cisplatin + trastuzumab 07/2021 and last chemo gemcitabine + cisplatin every 2 weeks with trastuzumab was given 11-09-2021. Pt admitted to ICU with pneumonia, chronic aFib and thrombocytopenia. He has been treated with IV antibiotics per ICU team. Oncologic History: 08/15/21 CT AP with innumerable liver metastases, some are solid and hypervascular and some appear to be centrally necrotic, liver has cirrhotic morphology, extensive necrotic appearing adenopathy in patti caval and mesentery . 08/17/21 ALT 65, AST 142, AlkPhos 170, TBili 1.1. CEA 5.8, CA 19-9 6571. 08/20/21 IR-guided liver biopsy. Pathology with atypical hepatic neoplasm, non- diagnostic. 08/31/[address] with extensive hypermetabolic lymphadenopathy in the mediastinum, patti hepatis, and retroperitoneum as well as within a lesion in the right lobe of the liver. No definite primary site of malignancy is detected. 09/07/21 CT-guided RPLN biopsy. Pathology with poorly differentiated adenocarcinoma (IHC positive CK7, CK19 suggestive of cholangiocarcinoma). HER2 IHC 2+, FISH amplified. TEMPUS xT with HER2 CNG, HFN1B and TOP2A mutation, TMB 54%, RUSSELL. 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 Family History: no cancer in family Social History: former smoker, quit in 2004, 35 pack year hx, former heavy drinker, quit in 07/2021 Medications & Allergies: see chart I consulted the patient on: 11/19/21 09:17 Time Seen by Provider: 09:18 Review of Systems Constitutional: see HPI Health Status Allergies Coded Allergies: No Known Drug Allergies (Unverified , 08/26/21) Home Medications Hydrocodone/Acetaminophen (Hydrocodone-Acetamin 10-325 mg) 10 Mg-325 Mg Tablet, 1 EACH PO Q4H PRN for PAIN-MODERATE (5-7), (Reported) Metoprolol Succinate (Metoprolol Succinate) 50 Mg Tab.er.24h, 50 MG PO BID, (Reported) Morphine Sulfate (Ms Contin) 15 Mg Tablet.er, 15 MG PO Q12H PRN for PAIN-SEVERE (8-10), (Reported) Ondansetron (Ondansetron Odt) 8 Mg Tab.rapdis, 8 MG PO Q6H PRN for NAUSEA/VOMITING-1ST LINE, (Reported) Rivaroxaban (Xarelto) 20 Mg Tablet, 20 MG PO DAILY, (Reported) TTE-Jydesu-Hzxask Hx Patient Social History Marrital Status: Living Status: Lives at home independently Smoking Status: Former Smoker 2nd Hand Smoke Exposure: No Recent Hopitalizations: No Alcohol Use?: No Substance type: Marijuana Have you traveled recently?: No Immunizations Up To Date Tetanus Booster (TDap): Unknown Family Medical History Significant Family History: No Pertinent Family Hx Physical Exam Vital Signs Vital Signs - First Documented 11/16/21 11/16/21 11/17/21 09:10 14:05 04:43 Temp 36.2 Pulse 143 Resp 18 B/P (MAP) 141/100 (114) Pulse Ox 100 O2 Delivery Room Air O2 Flow Rate 2.00 FiO2 21 Capillary Refill : Less Than 3 Seconds Height, Weight, BMI Height: 6'0" Weight: 200lbs. oz. [id number]; 21.73 BMI Method:Estimated General Appearance: No Apparent Distress HEENT: PERRL/EOMI Respiratory: No Accessory Muscle Use, No Respiratory Distress Gastrointestinal: Non Tender, Soft Extremity: Non Tender Neurologic/Psychiatric: Alert, Oriented x3 Data Review Labs Laboratory Tests 11/19/21 05:15 Laboratory Tests 11/16/21 16:50: Urine Specific [place] 1.025H, Urine Protein TRACEH, Urine Ketones TRACEH, Urine Bacteria FEWH 11/17/21 03:06: White Blood Count 3.3L, Red Blood Count 2.49L, Hemoglobin 7.6L, Hematocrit 21L, Red Cell Distribution Width 16.5H, Platelet Count 46L, Lymphocytes # (Auto) 0.7L , Sodium Level 131L, Chloride Level 97L, Carbon Dioxide Level 18L, Anion Gap 16H , Blood Urea Nitrogen 50H, Creatinine 1.94H, Calcium Level 7.6L, Magnesium Level 1.1*L, Total Bilirubin 3.0H, Aspartate Amino Transf (AST/SGOT) 90H, Alkaline Phosphatase 139H, Total Protein 5.0L, Albumin 2.5L 11/17/21 12:00: Red Blood Count 2.56L, Hemoglobin 7.8L, Hematocrit 21L, Red Cell Distribution Width 16.7H, Platelet Count 48L, Lymphocytes # (Auto) 0.7L, Monocytes (%) (Auto) 15H 11/18/21 05:20: Red Blood Count 2.45L, Hemoglobin 7.5L, Hematocrit 20*L, Red Cell Distribution Width 16.7H, Platelet Count 36*L, Lymphocytes # (Auto) 0.9L, Sodium Level 131L, Carbon Dioxide Level 17L, Anion Gap 15H, Blood Urea Nitrogen 43H, Creatinine 1.68H, Calcium Level 7.6L, Magnesium Level 1.3L, Total Bilirubin 3.0H, Aspartate Amino Transf (AST/SGOT) 91H, Alkaline Phosphatase 143H, Total Protein 5.0L, Albumin 2.5L, Monocytes (%) (Auto) 14H, Mean Corpuscular Hemoglobin Concent 37H, Potassium Level 3.4L, Glucose Level 108H 11/19/21 05:15: Red Blood Count 2.47L, Hemoglobin 7.4L, Hematocrit 21L, Red Cell Distribution Width 16.7H, Platelet Count 28*L, Lymphocytes (%) (Auto) 11L, Monocytes (%) (Auto) 13H, Lymphocytes # (Auto) 0.8L, Percent Immature Platelet Fraction 8.3H, Sodium Level 130L, Carbon Dioxide Level 17L, Blood Urea Nitrogen 39H, Creatinine 1.60H, Glucose Level 135H, Calcium Level 7.9L, Total Bilirubin 2.2H, Aspartate Amino Transf (AST/SGOT) 94H, Alkaline Phosphatase 150H, Total Protein 5.5L, Albumin 2.6L Impression & Plan Impression & Plan A/P: 1. Pneumonia in ICU on IV antibiotics. ICU team to decide the course. 2. Anemia and thrombocytopenia due to chemo, infection and liver cirrhosis. Transfusion support when Hb below 7 and/or Plt below 20 or major bleeding. 3. Afib with RVR, ICU team managing. 4. Metastatic Cholangiocarcinoma, RUSSELL, HER2 FISH amplified, NGS with no actionable alterations, last chemo 11-09-[address] Alvarez. Will hold off chemo for now and see Dr Alvarez as out-pt. 5. EtOH Cirrhosis 6. Protonix GI protection. ANUP VAZQUEZ MD Nov 19, 2021 09:19
[2021-11-19] MEDS: PANTOPRAZOLE 40 MG (PROTONIX) TAB PO SCH (10:33)
--- NOTE | 2021-11-19 11:01 | Physical Therapy Daily Note ---
PT Daily Note-Current Subjective Patient agrees to PT. Pain Section J - Health Conditions 1. Rarely or not at all 2. Occasionally 3. Frequently 4. Almost constantly 8. Unable to answer Pain Effect on Sleep: 1 Pain Interference with Therapy: 1 Pain Interference w/Day-to-Day: 1 Mental Status Patient Orientation: Normal For Age Transfers SCALE: Activities may be completed with or without assistive devices. 3-Pwtzkpftym-nkodcyk completes the activity by him/herself with no assistance from a helper. 5-Set-up or Clean-up Assistance-helper sets up or cleans up; patient completes activity. [place] assists only prior to or following the activity. 4-Supervision or Touching Assistance-helper provides verbal cues and/or touching/steadying and/or contact guard assistance as patient completes activity. Assistance may be provided throughout the activity or intermittently. 3-Partial/Moderate Assistance-helper does LESS THAN HALF the effort. [place] lifts, holds or supports trunk or limbs, but provides less than half the effort. 2-Substantial/Maximal Assistance-helper does MORE THAN HALF the effort. [place] lifts or holds trunk or limbs and provides more than half the effort. 3-Bqpapwulb-eqbrtr does ALL the effort. Patient does none of the effort to complete the activity. Or, the assistance of 2 or more helpers is required for the patient to complete the activity. If activity was not attempted, code reason: 7-Patient Refused. 9-Not Applicable-not attempted and the patient did not perform the activity before the current illness, exacerbation or injury. 10-Not Attempted due to Environmental Limitations-(lack of equipment, weather restraints, etc.). 88-Not Attempted due to Medical Conditions or Safety Concerns. Sit to Lying (QC): 6 Lying to Sitting/Side of Bed(Q: 6 Sit to Stand (QC): 6 Gait Training Distance: 200' Walk 10 feet (QC): 5 Walk 50 ft with 2 Turns(QC): 5 Walk 150 ft (QC): 5 Gait Assistive Device: FWW slow, steady gait sequence Assessment PT to see patient x 1 more session to ensure safe mobility. Patient is currently at modified independent to independent PL. PT Snf Goals Stylist Apprentice Goals PT Stylist Apprentice Goals Time Frame: Nov 28, 2021 Roll Left & Right (QC): 6 Sit to Lying (QC): 6 Lying-Sitting on Side/Bed(QC): 6 Sit to Stand (QC): 6 Chair/Cnh-we-Xotrp Xfer(QC): 6 Toilet Transfer (QC): 6 Walk 10 feet (QC): 6 Walk 50ft with 2 Turns (QC): 6 Walk 150 ft (QC): 6 PT Plan Treatment/Plan Treatment Plan: Continue Plan of Care Treatment Plan: Bed Mobility, Education, Functional Activity [place], Functional Strength, Gait, Safety, Therapeutic Exercise, Transfers Treatment Duration: Nov 28, 2021 Frequency: 6 times per week Estimated Hrs Per Day: .25 hour per day Patient and/or Family Agrees t: Yes Time/GCodes Time In: 938 Time Out: 948 Total Billed Treatment Time: 10 Total Billed Treatment 1 visit FA 10 min SADA SRIVASTAVA PT Nov 19, 2021 11:01
--- NOTE | 2021-11-19 13:57 | Progress Note ---
Subjective Subjective/Events-last exam Patient states that he is feeling better this AM. States that he had a nosebleed this AM. Denies any blood in urine or stool. Review of Systems Pulmonary: Dyspnea Cardiovascular: Edema; No: Chest Pain, Palpitations Gastrointestinal: Abdominal Pain; No: Nausea, Vomiting, Diarrhea, Constipation Neurological: Weakness, Incoordination Focused Exam Lactate Level 11/16/21 14:19: Lactic Acid Level 1.66 Objective Exam Last Set of Vital Signs Vital Signs Date Time Temp Pulse Resp B/P (MAP) Pulse Ox O2 Delivery O2 Flow Rate FiO2 11/19/21 13:00 100 11/19/21 11:13 37.4 18 127/85 (99) 99 Room Air 11/18/21 13:59 2.00 11/16/21 14:05 21 Capillary Refill : Less Than 3 Seconds I&O Intake and Output0 11/19/21 00:00 Intake Total 975 ml Balance 975 ml Intake Oral 975 ml # Voids 4 # Bowel Movements 3 General: Alert, Oriented X3, No Acute Distress Lungs: Clear to Auscultation, Normal Air Movement Heart: Regular Rate, No Murmurs Abdomen: Normal Bowel Sounds, Soft, Other (RUQ ttp, no rebound but has mild guarding with deep palpation) Extremities: Other (2+ pitting edema) Neuro: Normal Speech Results/Procedures Lab Laboratory Tests 11/19/21 05:15: White Blood Count 7.0, Red Blood Count 2.47L, Hemoglobin 7.4L, Hematocrit 21L, Mean Corpuscular Volume 84, Mean Corpuscular Hemoglobin 30, Mean Corpuscular Hemoglobin Concent 36, Red Cell Distribution Width 16.7H, Platelet Count 28*L, Mean Platelet Volume , Immature Granulocyte % (Auto) 0, Neutrophils (%) (Auto) 75, Lymphocytes (%) (Auto) 11L, Monocytes (%) (Auto) 13H, Eosinophils (%) (Auto) 0, Basophils (%) (Auto) 0, Neutrophils # (Auto) 5.2, Lymphocytes # (Auto) 0.8L, Monocytes # (Auto) 0.9, Eosinophils # (Auto) 0.0, Basophils # (Auto) 0.0, Immature Granulocyte # (Auto) 0.0, Percent Immature Platelet Fraction 8.3H, Sodium Level 130L, Potassium Level 3.9, Chloride Level 101, Carbon Dioxide Level 17L, Anion Gap 12, Blood Urea Nitrogen 39H, Creatinine 1.60H, Estimat Glomerular Filtration Rate 47, BUN/Creatinine Ratio 24, Glucose Level 135H, Calcium Level 7.9L, Corrected Calcium 9.0, Phosphorus Level 2.9, Magnesium Level 1.6, Total Bilirubin 2.2H, Aspartate Amino Transf (AST/SGOT) 94H, Alanine Aminotransferase (ALT/SGPT) 35, Alkaline Phosphatase 150H, Total Protein 5.5L, Albumin 2.6L Microbiology 11/16/21 Urine Culture - Final, Complete NO GROWTH 11/16/21 MRSA Screen - Final, Complete MRSA not isolated 11/16/21 Blood Culture - Preliminary, Resulted No growth Assessment/Plan Assessment/Plan (1) Sepsis Status: Acute Assessment & Plan: - Patient started on cefepime given he is on chemotherapy for PNA, Procal and CRP elevated, gentle IVFs given elevated BNP and extensive LE edema 11/17: Continue Cefepime D2, HDS 11/18: Cefepime D3, HDS, Stopped IVFs 11/19: Improved, HDS Qualifiers: Qualified Codes: A41.9 - Sepsis, unspecified organism; R65.20 - Severe sepsis without septic shock; N17.9 - Acute kidney failure, unspecified (2) Thrombocytopenia Status: Acute Assessment & Plan: 11/18: Holding OAC and Lovenox, SCDs for DVT Pxx 11/19: Dr Craven consulted, appreciate recommendations (3) Atrial fibrillation with rapid ventricular response Status: Acute Assessment & Plan: - Cardiology Dr Nguyen's consulted, appreciate recommendations, HR improved with cardizem in ER 11/17: Metoprolol dose increased by Dr Rothman, will continue to monitor and titrate cardizem as tolerated 11/18: Rate controlled, off OAC due to severe thrombocytopenia (4) Bilateral pneumonia Status: Acute Assessment & Plan: - Cefepime D1, MAT protocol, not requiring oxygen at this time 11/18: D3 Cefepime, Encouraged IS, Started on PO steroids today Qualifiers: Qualified Codes: J18.9 - Pneumonia, unspecified organism (5) Mediastinal mass Status: Acute Assessment & Plan: - Present on PET scan done in August, likely metastatic mass 11/17: Oncology consulted today Dr Alvarez (6) Acute renal failure Status: Acute Assessment & Plan: - Gentle hydration, will continue to monitor 11/17: Improving with gentle hydration 11/19: Seems to be near baseline Qualifiers: Qualified Codes: N17.9 - Acute kidney failure, unspecified (7) Normocytic anemia Status: Chronic (8) Hypomagnesemia Status: Acute Assessment & Plan: - Replace and repeat level (9) Liver cancer Qualifiers: Qualified Codes: 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
--- NOTE | 2021-11-19 16:22 | Cardiology Progress Note ---
Progress Note-Cardiology Events since last exam Date Seen by Provider: Nov 19, 2021 Time Seen by Provider: 16:18 Events since last exam I am following him due to atrial fibrillation. He was transferred out of the intensive care unit to the medical floor. He feels better today. His breathing and cough have both improved. He denies chest pain, palpitations, syncope, or ankle edema. Certain portions of this document may have been dictated utilizing voice recognition technology. Inherent to this technology, typographical and grammatical errors may exist. As much as I am diligent to identify and correct these mistakes, some errors may remain in the document. Vitals Last set of Vitals Signs Vital Signs 11/16/21 11/18/21 11/19/21 11/19/21 14:05 13:59 15:15 16:03 Temp 37.4 Pulse 120 Resp 18 B/P (MAP) 110/62 (78) Pulse Ox 94 O2 Delivery Room Air O2 Flow Rate 2.00 FiO2 21 Labs Labs Laboratory Tests 11/19/21 05:15 Exam Vital Signs Vital Signs Date Time Temp Pulse Resp B/P (MAP) Pulse Ox O2 Delivery O2 Flow Rate FiO2 11/19/21 16:03 37.4 120 94 11/19/21 15:15 18 110/62 (78) Room Air 11/18/21 13:59 2.00 11/16/21 14:05 21 Physical Exam General: Alert. No acute distress. He appears chronically ill and older than his stated age. Eye: No xanthelasma. HENT: Normocephalic. Neck: Jugular venous pressure does not appear elevated. Respiratory: Lungs are clear to auscultation. Respirations are non-labored. Breath sounds are equal. Symmetrical chest wall expansion. Cardiovascular: Normal rate. Irregular rhythm. No murmur. No gallop. No edema. Gastrointestinal: Soft. Normal bowel sounds. Skin: Warm. Dry. Neurologic: Alert and oriented to person, place, time. Cranial nerves 3-11 grossly intact. Psychiatric: Cooperative. Appropriate mood & affect. Labs Laboratory Tests Test 11/19/21 05:15 Range/Units White Blood Count 7.0 4.3-11.0 10^3/uL Red Blood Count 2.47 L 4.30-5.52 10^6/uL Hemoglobin 7.4 L 13.3-17.7 g/dL Hematocrit 21 L 40-54 % Mean Corpuscular Volume 84 80-99 fL Mean Corpuscular Hemoglobin 30 25-34 pg Mean Corpuscular Hemoglobin Concent 36 32-36 g/dL Red Cell Distribution Width 16.7 H 10.0-14.5 % Platelet Count 28 *L 130-400 10^3/uL Mean Platelet Volume 9.0-12.2 fL Immature Granulocyte % (Auto) 0 % Neutrophils (%) (Auto) 75 42-75 % Lymphocytes (%) (Auto) 11 L 12-44 % Monocytes (%) (Auto) 13 H 0-12 % Eosinophils (%) (Auto) 0 0-10 % Basophils (%) (Auto) 0 0-10 % Neutrophils # (Auto) 5.2 1.8-7.8 10^3/uL Lymphocytes # (Auto) 0.8 L 1.0-4.0 10^3/uL Monocytes # (Auto) 0.9 0.0-1.0 10^3/uL Eosinophils # (Auto) 0.0 0.0-0.3 10^3/uL Basophils # (Auto) 0.0 0.0-0.1 10^3/uL Immature Granulocyte # (Auto) 0.0 0.0-0.1 10^3/uL Percent Immature Platelet Fraction 8.3 H 0.0-7.6 % Sodium Level 130 L 135-145 MMOL/L Potassium Level 3.9 3.6-5.0 MMOL/L Chloride Level 101 98-107 MMOL/L Carbon Dioxide Level 17 L 21-32 MMOL/L Anion Gap 12 5-14 MMOL/L Blood Urea Nitrogen 39 H 7-18 MG/DL Creatinine 1.60 H 0.60-1.30 MG/DL Estimat Glomerular Filtration Rate 47 BUN/Creatinine Ratio 24 Glucose Level 135 H 70-105 MG/DL Calcium Level 7.9 L 8.5-10.1 MG/DL Corrected Calcium 9.0 8.5-10.1 MG/DL Phosphorus Level 2.9 2.3-4.7 MG/DL Magnesium Level 1.6 1.6-2.4 MG/DL Total Bilirubin 2.2 H 0.1-1.0 MG/DL Aspartate Amino Transf (AST/SGOT) 94 H 5-34 U/L Alanine Aminotransferase (ALT/SGPT) 35 0-55 U/L Alkaline Phosphatase 150 H 40-136 U/L Total Protein 5.5 L 6.4-8.2 GM/DL Albumin 2.6 L 3.2-4.5 GM/DL Diagnosis/Problems Diagnosis/Problems (1) Permanent atrial fibrillation Assessment & Plan: He has permanent atrial fibrillation and presented with tachycardia. This may have been related to sepsis. His heart rate improved with intravenous diltiazem. I doubled his dose of metoprolol succinate and he was able to wean off diltiazem. His heart rates have been trending upward. If this persists, we may need to increase his dose of metoprolol once again. Xarelto is still on hold due to thrombocytopenia. If and when we do decide to restart Xarelto today, he would need the renal adjusted dose due to creatinine clearance less than 50. (2) Primary hypertension Assessment & Plan: We will need to watch his blood pressure on the higher dose of metoprolol which I increased due to the atrial fibrillation and tachycardia as outlined above. Despite having possible sepsis, he has remained normotensive even on the higher dose of beta-melba. (3) Acute kidney injury Assessment & Plan: Most likely due to sepsis. He received intravenous fluids which were stopped after he received approximately 3 L. His renal function continues to improve. We will need to watch this closely. (4) Pancytopenia Assessment & Plan: I suspect this is related to the chemotherapy he received about 1 week ago. He has been seen by hematology. (5) Sepsis Status: Acute Assessment & Plan: This appears to be due to pneumonia. The hospitalist is managing this condition. This seems to be improving. 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 As above, he has been seen by hematology/oncology. Problem Qualifiers (1) Sepsis: Sepsis type: sepsis due to unspecified organism Sepsis acute organ dysfunction status: with acute organ dysfunction Severe sepsis acute organ dysfunction type: acute renal failure Acute renal failure type: unspecified Severe sepsi s shock status: without septic shock Qualified Codes: A41.9 - Sepsis, unspecified organism; R65.20 - Severe sepsis without septic shock; N17.9 - Acute kidney failure, unspecified SAUL CHOWDHURY JR, MD Nov 19, 2021 16:22
[2021-11-20] MEDS: HYDROcodone/APAP 5 MG/325 MG (LORTAB) TAB PO PRN ×5 (02:28→20:47)
[2021-11-20] MEDS: CEFEPIME INJECTION 1,000 MG in NS (IVPB) 50 ML IV SCH ×3 (02:28→18:20)
[2021-11-20 03:24] VITALS: BP 121/77
[2021-11-20] MEDS: predniSONE 20 MG TAB PO SCH (06:14)
[2021-11-20 06:26] LABS: BASOPHILS % (AUTO) 0 % (0-10); HEMOGLOBIN 7.3 g/dL (13.3-17.7)
[2021-11-20 06:28] LABS: EOSINOPHILS % (AUTO) 0 % (0-10); LYMPHOCYTES # (AUTO) 1.2 10^3/uL (1.0-4.0); LYMPHOCYTES % (AUTO) 13 % (12-44); MEAN CORPUSCULAR HEMOGLOBIN 30 pg (25-34); MEAN CORPUSCULAR HGB CONC 36 g/dL (32-36); MEAN CORPUSCULAR VOLUME 84 fL (80-99); MEAN PLATELET VOLUME 13.3 fL (9.0-12.2); MONOCYTES # (AUTO) 1.3 10^3/uL (0.0-1.0); MONOCYTES % (AUTO) 15 % (0-12); NEUTROPHILS # (AUTO) 6.6 10^3/uL (1.8-7.8); NEUTROPHILS % (AUTO) 72 % (42-75); WHITE BLOOD COUNT 9.2 10^3/uL (4.3-11.0)
[2021-11-20 06:32] LABS: HEMATOCRIT 20 % (40-54); PLATELET COUNT 29 10^3/uL (130-400)
[2021-11-20 06:54] LABS: ALBUMIN 2.4 GM/DL (3.2-4.5); BILIRUBIN,TOTAL 1.4 MG/DL (0.1-1.0); CALCIUM 7.9 MG/DL (8.5-10.1); CREATININE SERUM 1.49 MG/DL (0.60-1.30); TOTAL PROTEIN 4.9 GM/DL (6.4-8.2)
[2021-11-20 06:54] LABS: MAGNESIUM 1.4 MG/DL (1.6-2.4); PHOSPHORUS 2.3 MG/DL (2.3-4.7)
[2021-11-20 07:45] VITALS: BP 120/75
[2021-11-20] MEDS: PANTOPRAZOLE 40 MG (PROTONIX) TAB PO SCH (08:44)
[2021-11-20] MEDS: meTOprolol SUCCINATE 100 MG (TOPROL XL) TAB PO SCH (08:44)
--- NOTE | 2021-11-20 08:51 | Cardiology Progress Note ---
Progress Note-Cardiology Events since last exam Date Seen by Provider: Nov 20, 2021 Time Seen by Provider: 08:50 Events since last exam I am following him due to permanent atrial fibrillation. He was sitting up in bed eating breakfast. He feels much better. He denies chest pain, dyspnea at rest, palpitations, syncope, or ankle edema. Certain portions of this document may have been dictated utilizing voice recognition technology. Inherent to this technology, typographical and grammatical errors may exist. As much as I am diligent to identify and correct these mistakes, some errors may remain in the document. Vitals Last set of Vitals Signs Vital Signs 11/16/21 11/18/21 11/20/21 14:05 13:59 07:45 Temp 37.1 Pulse 76 Resp 18 B/P (MAP) 120/75 (90) Pulse Ox 97 O2 Delivery Room Air O2 Flow Rate 2.00 FiO2 21 Labs Labs Laboratory Tests 11/20/21 06:19 11/20/21 06:24 Exam Vital Signs Vital Signs Date Time Temp Pulse Resp B/P (MAP) Pulse Ox O2 Delivery O2 Flow Rate FiO2 11/20/21 07:45 37.1 76 18 120/75 (90) 97 Room Air 11/18/21 13:59 2.00 11/16/21 14:05 21 Physical Exam General: Alert. No acute distress. He appears chronically ill and older than his stated age. Eye: No xanthelasma. HENT: Normocephalic. Neck: Jugular venous pressure does not appear elevated. Respiratory: Lungs are clear to auscultation. Respirations are non-labored. Breath sounds are equal. Symmetrical chest wall expansion. Cardiovascular: Normal rate. Regular rhythm. No murmur. No gallop. No edema. Gastrointestinal: Soft. Normal bowel sounds. Skin: Warm. Dry. Neurologic: Alert and oriented to person, place, time. Cranial nerves 3-11 grossly intact. Psychiatric: Cooperative. Appropriate mood & affect. Labs Laboratory Tests Test 11/20/21 06:19 11/20/21 06:24 Range/Units Sodium Level 126 L 135-145 MMOL/L Potassium Level 4.0 3.6-5.0 MMOL/L Chloride Level 100 98-107 MMOL/L Carbon Dioxide Level 17 L 21-32 MMOL/L Anion Gap 9 5-14 MMOL/L Blood Urea Nitrogen 44 H 7-18 MG/DL Creatinine 1.49 H 0.60-1.30 MG/DL Estimat Glomerular Filtration Rate 51 BUN/Creatinine Ratio 30 Glucose Level 80 70-105 MG/DL Calcium Level 7.9 L 8.5-10.1 MG/DL Corrected Calcium 9.2 8.5-10.1 MG/DL Total Bilirubin 1.4 H 0.1-1.0 MG/DL Aspartate Amino Transf (AST/SGOT) 123 H 5-34 U/L Alanine Aminotransferase (ALT/SGPT) 44 0-55 U/L Alkaline Phosphatase 163 H 40-136 U/L Total Protein 4.9 L 6.4-8.2 GM/DL Albumin 2.4 L 3.2-4.5 GM/DL White Blood Count 9.2 4.3-11.0 10^3/uL Red Blood Count 2.43 L 4.30-5.52 10^6/uL Hemoglobin 7.3 L 13.3-17.7 g/dL Hematocrit 20 *L 40-54 % Mean Corpuscular Volume 84 80-99 fL Mean Corpuscular Hemoglobin 30 25-34 pg Mean Corpuscular Hemoglobin Concent 36 32-36 g/dL Red Cell Distribution Width 16.6 H 10.0-14.5 % Platelet Count 29 *L 130-400 10^3/uL Mean Platelet Volume 13.3 H 9.0-12.2 fL Immature Granulocyte % (Auto) 1 % Neutrophils (%) (Auto) 72 42-75 % Lymphocytes (%) (Auto) 13 12-44 % Monocytes (%) (Auto) 15 H 0-12 % Eosinophils (%) (Auto) 0 0-10 % Basophils (%) (Auto) 0 0-10 % Neutrophils # (Auto) 6.6 1.8-7.8 10^3/uL Lymphocytes # (Auto) 1.2 1.0-4.0 10^3/uL Monocytes # (Auto) 1.3 H 0.0-1.0 10^3/uL Eosinophils # (Auto) 0.0 0.0-0.3 10^3/uL Basophils # (Auto) 0.0 0.0-0.1 10^3/uL Immature Granulocyte # (Auto) 0.1 0.0-0.1 10^3/uL Percent Immature Platelet Fraction 12.9 H 0.0-7.6 % Phosphorus Level 2.3 2.3-4.7 MG/DL Magnesium Level 1.4 L 1.6-2.4 MG/DL Diagnosis/Problems Diagnosis/Problems (1) Permanent atrial fibrillation Assessment & Plan: He has permanent atrial fibrillation and presented with tachycardia. This may have been related to sepsis. His heart rate improved with intravenous diltiazem. I doubled his dose of metoprolol succinate and he was able to wean off diltiazem. His heart rates have been better over the past 24 hours. Xarelto is still on hold due to thrombocytopenia. If and when we do decide to restart Xarelto today, he would need the renal adjusted dose due to creatinine clearance less than 50. (2) Primary hypertension Assessment & Plan: We will need to watch his blood pressure on the higher dose of metoprolol which I increased due to the atrial fibrillation and tachycardia as outlined above. Despite having possible sepsis, he has remained normotensive even on the higher dose of beta-melba. (3) Acute kidney injury Assessment & Plan: Most likely due to sepsis. He received intravenous fluids which were stopped after he received approximately 3 L. His renal function improved. We will need to watch this closely. (4) Pancytopenia Assessment & Plan: I suspect this is related to the chemotherapy he received about 1 week ago. He has been seen by hematology. I would suggest we continue to hold Xarelto until his platelets are at least above 50,000. (5) Sepsis Status: Acute Assessment & Plan: This appears to be due to pneumonia. The hospitalist is managing this condition. This seems to be improving. 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 As above, he has been seen by hematology/oncology. Problem Qualifiers (1) Sepsis: Sepsis type: sepsis due to unspecified organism Sepsis acute organ dysfunction status: with acute organ dysfunction Severe sepsis acute organ dysfunction type: acute renal failure Acute renal failure type: unspecified Severe sepsis shock status: without septic shock Qualified Codes: A41.9 - Sepsis, unspecified organism; R65.20 - Severe sepsis without septic shock; N17.9 - Acute kidney failure, unspecified SAUL CHOWDHURY JR, MD Nov 20, 2021 08:51
[2021-11-20 11:20] VITALS: BP 103/63
[2021-11-20] MEDS: DOCUSATE SODIUM 100 MG (COLACE) CAP PO SCH ×2 (11:35→20:46)
--- NOTE | 2021-11-20 11:40 | Physical Therapy Daily Note ---
PT Daily Note-Current Subjective Patient sitting EOB pre tx, agrees to PT, has unrated abdominal pain and pressure. Pain Section J - Health Conditions 1. Rarely or not at all 2. Occasionally 3. Frequently 4. Almost constantly 8. Unable to answer Pain Effect on Sleep: 1 Pain Interference with Therapy: 1 Pain Interference w/Day-to-Day: 1 Appearance Patienit sitting EOB post tx with nurse call, phone, tray, all needs met. Mental Status Patient Orientation: Person, Place, Situation Transfers SCALE: Activities may be completed with or without assistive devices. 0-Tqhauakhrk-vtaabrk completes the activity by him/herself with no assistance from a helper. 5-Set-up or Clean-up Assistance-helper sets up or cleans up; patient completes activity. [place] assists only prior to or following the activity. 4-Supervision or Touching Assistance-helper provides verbal cues and/or touching/steadying and/or contact guard assistance as patient completes activity. Assistance may be provided throughout the activity or intermittently. 3-Partial/Moderate Assistance-helper does LESS THAN HALF the effort. [place] lifts, holds or supports trunk or limbs, but provides less than half the effort. 2-Substantial/Maximal Assistance-helper does MORE THAN HALF the effort. [place] lifts or holds trunk or limbs and provides more than half the effort. 4-Bwzldhnes-emijxc does ALL the effort. Patient does none of the effort to complete the activity. Or, the assistance of 2 or more helpers is required for the patient to complete the activity. If activity was not attempted, code reason: 7-Patient Refused. 9-Not Applicable-not attempted and the patient did not perform the activity before the current illness, exacerbation or injury. 10-Not Attempted due to Environmental Limitations-(lack of equipment, weather restraints, etc.). 88-Not Attempted due to Medical Conditions or Safety Concerns. Sit to Stand (QC): 4 Chair/Mdy-cm-Clujr Xfer(QC): 4 SBA Gait Training Distance: 200' Walk 10 feet (QC): 4 Walk 50 ft with 2 Turns(QC): 4 Walk 150 ft (QC): 4 Gait Persons Needed: 1 Gait Assistive Device: FWW SBA, slow but steady ambulation, patient states he feels weak Treatments transfers, ambulation Assessment Current Status: Fair Progress improving endurance and ambulation, no dizziness PT Supervisor Pairing And Inspecting Goals Mcfp Goals PT Mcfp Goals Time Frame: Nov 28, 2021 Roll Left & Right (QC): 6 Sit to Lying (QC): 6 Lying-Sitting on Side/Bed(QC): 6 Sit to Stand (QC): 6 Chair/Cdc-dm-Kfkkh Xfer(QC): 6 Toilet Transfer (QC): 6 Walk 10 feet (QC): 6 Walk 50ft with 2 Turns (QC): 6 Walk 150 ft (QC): 6 PT Plan Problem List Problem List: Activity Tolerance, Functional Strength, Safety, Balance, Gait, Transfer, Bed Mobility, ROM Treatment/Plan Treatment Plan: Continue Plan of Care Treatment Plan: Bed Mobility, Education, Functional Activity [place], Functional Strength, Gait, Safety, Therapeutic Exercise, Transfers Treatment Duration: Nov 28, 2021 Frequency: 6 times per week Estimated Hrs Per Day: .25 hour per day Patient and/or Family Agrees t: Yes Safety Risks/Education Patient Education: Gait Training, Transfer Techniques, Correct Positioning, Safety Issues Teaching Recipient: Patient Teaching Methods: Demonstration, Discussion Response to Teaching: Reinforcement Needed Time/GCodes Time In: 1122 Time Out: 1131 Total Billed Treatment Time: 9 Total Billed Treatment 1 visit GT 9' TEODORA MUSTAFA PT Nov 20, 2021 11:40
--- NOTE | 2021-11-20 12:41 | Progress Note - Hospitalist ---
RUKHSANA MCFARLAND 11/20/21 1241: Subjective HPI/CC On Admission Date Seen by Provider: Nov 20, 2021 Time Seen by Provider: 12:36 Subjective/Events-last exam Patient is up and ambulating well Patient is in good spirits Patient denies any SOB Denies any pain Holter monitor still on Feels like he is not urinating that much Labs and Vitals Reviewed Objective Exam Vital Signs Vital Signs Date Time Temp Pulse Resp B/P (MAP) Pulse Ox O2 Delivery O2 Flow Rate FiO2 11/20/21 12:56 85 11/20/21 11:20 36.8 18 103/63 (76) 95 Room Air 11/18/21 13:59 2.00 11/16/21 14:05 21 Capillary Refill : Less Than 3 Seconds General Appearance: No Apparent Distress, WD/WN HEENT: PERRL/EOMI; No Scleral Icterus (L), No Scleral Icterus (R) Neck: Full Range of Motion, Normal Inspection Respiratory: Chest Non Tender, Lungs Clear Cardiovascular: No Gallop, No JVD, No Murmur Gastrointestinal: Non Tender, Soft Rectal: Deferred Back: Normal Inspection, No CVA Tenderness Extremity: Normal Capillary Refill, Normal Inspection, Non Tender, No Calf Tenderness Neurologic/Psychiatric: Alert, Oriented x3, Normal Mood/Affect Skin: Normal Color, Warm/Dry Lymphatic: No Adenopathy Results/Procedures Lab Laboratory Tests 11/20/21 06:19 11/20/21 06:24 Patient resulted labs reviewed. Assessment/Plan Assessment and Plan Assess & Plan/Chief Complaint Sepsis- Continue Cefepime IVFs discontinued All cultures negative Vitals Stable Thrombocytopenia- Currently 29 Holding OAC and Lovenox Dr Craven consulted Permanent atrial fibrillation Cardiology consulted Diltiazem discontinued Metoprolol dose increased by Dr Rothman, will continue to monitor Rate controlled Bilateral pneumonia- breathing much improved Continue Cefepime Continue PO steroids Urinary retention Start on tamsulosin Mediastinal mass Present on PET scan done in August, likely metastatic mass Oncology consulted Dr Alvarez Acute renal failure-Improving IVFs discontinued Chronic normocytic anemia Hyponatremia Monitor and Replace Hypomagnesemia-Currently 1.4 Replace and repeat level Metastatic cholangiocarcinoma Chemotherapy is currently on hold Oncology following Debility-Improving Continue PT CYNTHIA CALLAWAY DO 11/21/21 0600: Subjective Subjective/Events-last exam Improved status Transfuse for hgb less than 7.0 Urinary retention suspected Supervisory-Addendum Brief Verification & Attestation Participated in pt care: history, MDM, physical Personally performed: exam, history, MDM, supervision of care Care discussed with: Medical Student Procedures: n/a Results interpretation: Verified all documentation Verification and Attestation of Medical Student E/M Service A medical student performed and documented this service in my presence. I reviewed and verified all information documented by the medical student and made modifications to such information, when appropriate. I personally performed the physical exam and medical decision making. Cynthia Callaway, Nov 21, 2021,05:59 RUKHSANA MCFARLAND Nov 20, 2021 12:41 CYNTHIA CALLAWAY DO Nov 21, 2021 06:00
--- NOTE | 2021-11-20 14:02 | Progress Note ---
Progress Note Assessment/Plan Date Seen by Provider: Nov 20, 2021 Time Seen by Provider: 14:01 Events since last exam Pt is feeling better. No new issues. Hb 7.4 and Plt 29 today. Assessment/Plan A/P: 1. Pneumonia in ICU on IV antibiotics. ICU team to decide the course. 2. Anemia and thrombocytopenia due to chemo, infection and liver cirrhosis. Transfusion support when Hb below 7 and/or Plt below 20 or major bleeding. 3. Afib with RVR, ICU team managing. 4. Metastatic Cholangiocarcinoma, RUSSELL, HER2 FISH amplified, NGS with no actionable alterations, last chemo 11-09-[address] Alvarez. Will hold off chemo for now and see Dr Alvarez as out-pt. 5. EtOH Cirrhosis 6. Protonix GI protection. 7. From Hem/Onc point of view, pt can be discharged. Dr Avery to decide the discharge plan. F/u with Dr Alvarez next week at cancer center. Please call for f/u appointment. Vitals Last set of Vitals Signs Vital Signs Date Time Temp Pulse Resp B/P (MAP) Pulse Ox O2 Delivery O2 Flow Rate FiO2 11/20/21 12:56 85 11/20/21 11:20 36.8 18 103/63 (76) 95 Room Air 11/18/21 13:59 2.00 11/16/21 14:05 21 I&O I&O Intake and Output 11/20/21 00:00 Intake Total 2070 ml Balance 2070 ml Intake Oral 2070 ml # Voids 9 # Bowel Movements 2 Labs Laboratory Tests 11/20/21 06:19: Sodium Level 126L, Potassium Level 4.0, Chloride Level 100, Carbon Dioxide Level 17L, Anion Gap 9, Blood Urea Nitrogen 44H, Creatinine 1.49H, Estimat Glomerular Filtration Rate 51, BUN/Creatinine Ratio 30, Glucose Level 80, Calcium Level 7.9L, Corrected Calcium 9.2, Total Bilirubin 1.4H, Aspartate Amino Transf (AST/SGOT) 123H, Alanine Aminotransferase (ALT/SGPT) 44, Alkaline Phosphatase 163H, Total Protein 4.9L, Albumin 2.4L 11/20/21 06:24: White Blood Count 9.2, Red Blood Count 2.43L, Hemoglobin 7.3L, Hematocrit 20*L, Mean Corpuscular Volume 84, Mean Corpuscular Hemoglobin 30, Mean Corpuscular Hemoglobin Concent 36, Red Cell Distribution Width 16.6H, Platelet Count 29*L, Mean Platelet Volume 13.3H, Immature Granulocyte % (Auto) 1, Neutrophils (%) (Auto) 72, Lymphocytes (%) (Auto) 13, Monocytes (%) (Auto) 15H, Eosinophils (%) (Auto) 0, Basophils (%) (Auto) 0, Neutrophils # (Auto) 6.6, Lymphocytes # (Auto) 1.2, Monocytes # (Auto) 1.3H, Eosinophils # (Auto) 0.0, Basophils # (Auto) 0.0, Immature Granulocyte # (Auto) 0.1, Percent Immature Platelet Fraction 12.9H, Phosphorus Level 2.3, Magnesium Level 1.4L Microbiology 11/16/21 Urine Culture - Final, Complete NO GROWTH 11/16/21 MRSA Screen - Final, Complete MRSA not isolated 11/16/21 Blood Culture - Preliminary, Resulted No growth ANUP VAZQUEZ MD Nov 20, 2021 14:01
[2021-11-20 15:13] VITALS: BP 121/68
[2021-11-20] MEDS: BETHANECHOL 10 MG (URECHOLINE) TAB PO SCH ×2 (15:42→20:46)
--- NOTE | 2021-11-20 16:22 | Consultation - Surgery ---
History of Present Illness History of Present Illness Patient Consulted On(naomi/time) 11/20/21 16:15 Time Seen by Provider: 15:16 History of Present Illness Surgery asked to consult regarding urinary retention. HPI per ED: Here with shortness of air, cough, congestion, weakness and feeling cold. 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 Does have history of atrial fibrillation and is on Xarelto. Reports not eating or drinking well. Does have increasing fatigue. Follows with cancer center here as well [facility]. Timing/Duration: 3-4 Days, Getting Worse Severity: Moderate Associated Systoms: No Chest Pain; Cough; No Fever/Chills; Loss of Appetite; No Nausea/Vomiting; Shortness of Air, Weakness When I saw pt this afternoon, he was sitting up in bed comfortably. He was complaining of some abdominal distention and minimal pain. He has not urinated very much and a bladder scan showed 500ml in bladder; two attempts at straight cath were unsuccessful. He does relay some difficulty urinating, but stated he peed last night and this am. Does not appear to be in any discomfort when I saw him. I have seen him before for Patti-cath placement. Allergies and Home Medications Allergies Coded Allergies: No Known Drug Allergies (Unverified , 08/26/21) Patient Home Medication List Home Medication List Reviewed: Yes Hydrocodone/Acetaminophen (Hydrocodone-Acetamin 10-325 mg) 10 Mg-325 Mg Tablet, 1 EACH PO Q4H PRN for PAIN-MODERATE (5-7), (Reported) Entered as Reported by: JORGE LUU on 11/16/21 1452 Last Action: Held Metoprolol Succinate (Metoprolol Succinate) 50 Mg Tab.er.24h, 50 MG PO BID, (Reported) Entered as Reported by: MEHNAZ JORGE on 08/19/21 1205 Last Action: Held Morphine Sulfate (Ms Contin) 15 Mg Tablet.er, 15 MG PO Q12H PRN for PAIN-SEVERE (8-10), (Reported) Entered as Reported by: ANICETO MARTINEZ on 09/07/21 0827 Last Action: Held Ondansetron (Ondansetron Odt) 8 Mg Tab.rapdis, 8 MG PO Q6H PRN for NAUSEA/VOMITING-1ST LINE, (Reported) Entered as Reported by: JORGE LUU on 11/16/211447 Last Action: Held Rivaroxaban (Xarelto) 20 Mg Tablet, 20 MG PO DAILY, (Reported) Entered as Reported by: JORGE LUU on 11/16/211447 Last Action: Held Discontinued Medications Albuterol Sulfate (Ventolin Hfa) 1 Puff Puff, 2 PUFF INH Q4H PRN for SHORTNESS OF BREATH, (Reported) Discontinued Reason: No Longer Taking Entered as Reported by: DEAN ELLISON on 08/20/21 0759 Last Action: Discontinued Aspirin (Aspir 81) 81 Mg Tablet.dr, 81 MG PO DAILY, (Reported) Discontinued Reason: No Longer Taking Entered as Reported by: SONNY BRIONES on 11/13/18 0925 Last Action: Discontinued Hydrocodone/Acetaminophen (Hydrocodone-Acetamin 7.5-325) 7.5 Mg-325 Mg Tablet, 1 EACH PO Q4H, (Reported) Discontinued Reason: No Longer Taking Entered as Reported by: ANICETO MARTINEZ on 09/07/21 0827 Last Action: Discontinued Morphine Sulfate (Morphine Sulfate ER) 15 Mg Tablet.er, 1 EA PO Q4H PRN for PAIN-MODERATE (5-7), (Reported) Discontinued Reason: Duplicate Order Entered as Reported by: JORGE LUU on 11/16/211447 Last Action: Discontinued Past Pnwkxho-Jmbqfw-Nytxkc Hx Patient Social History Smoking Status: Former Smoker Former Smoker, Quit: Aug 19, 2000 2nd Hand Smoke Exposure: No Recent Hopitalizations: No Alcohol Use?: No Substance type: Marijuana Have you traveled recently?: No Immunizations Up To Date Tetanus Booster (TDap): Unknown Seasonal Allergies Seasonal Allergies: Yes Surgeries History of Surgeries: Yes (AMPUTATION RIGHT INDEX FINGER, COLONOSCOPY) Surgeries: Orthopedic Respiratory History of Respiratory Disorde: Yes (USES INHALER) Respiratory Disorders: Chronic Bronchitis, COPD Cardiovascular History of Cardiac Disorders: Yes Cardiac Disorders: High Cholesterol, Irregular Heartbeat Neurological History of Neurological Disord: No Genitourinary History of Genitourinary Disor: No Gastrointestinal History of Gastrointestinal Di: Yes (HX HEP C) Gastrointestinal Disorders: Gastroesophageal Reflux, Liver Disease/Jaundice, Hepatitis Musculoskeletal History of Musculoskeletal Dis: Yes Musculoskeletal Disorders: Arthritis, Chronic Back Pain Endocrine History of Endocrine Disorders: No HEENT History of HEENT Disorders: Yes (GLASSES) Cancer History of Cancer: Yes Cancer: Liver Psychosocial History of Psychiatric Problem: Yes Behavioral Health Disorders: Anxiety, Depression Integumentary History of Skin or Integumenta: No Blood Transfusions History of Blood Disorders: No Adverse Reaction to a Blood Tr: No (N/A) Family Medical History Significant Family History: Other Conditions/Hx (pt denied cancer in his family, doesn't think anyone had DM) Review of Systems-General Constitutional: diaphoresis, malaise, weakness EENTM: blurred vision; No mouth swelling, No epistaxis Respiratory: cough, dyspnea on exertion Cardiovascular: No chest pain; palpitations Gastrointestinal: No hematemesis, No nausea, No vomiting Genitourinary: No hematuria; hesitancy Musculoskeletal: joint pain, joint swelling, muscle stiffness Skin: No change in color, No change in hair/nails Psychiatric/Neurological: Anxiety, Depressed; Denies Seizure Physical Exam-General Problems Physical Exam Vital Signs Vital Signs - First Documented 11/16/21 11/16/21 11/17/21 09:10 14:05 04:43 Temp 36.2 Pulse 143 Resp 18 B/P (MAP) 141/100 (114) Pulse Ox 100 O2 Delivery Room Air O2 Flow Rate 2.00 FiO2 21 Capillary Refill : Less Than 3 Seconds General Appearance: WD/WN, no apparent distress Eyes: Bilateral Eye PERRL, Bilateral Eye EOMI HEENT: pharynx normal; No scleral icterus (R), No scleral icterus (L) Neck: non-tender, supple Respiratory: normal breath sounds, no respiratory distress, no accessory muscle use Cardiovascular: no murmur, irregularly irregular Gastrointestinal: soft, distended (mild); No guarding; tenderness (mild with deep palpation), hepatomegaly Back: no CVA tenderness, no vertebral tenderness Extremities: no pedal edema, no calf tenderness Neurologic/Psychiatric: alert, oriented x 3 Skin: normal color, warm/dry Data Review Labs Laboratory Tests 11/20/21 06:19: Sodium Level 126L, Potassium Level 4.0, Chloride Level 100, Carbon Dioxide Level 17L, Anion Gap 9, Blood Urea Nitrogen 44H, Creatinine 1.49H, Estimat Glomerular Filtration Rate 51, BUN/Creatinine Ratio 30, Glucose Level 80, Calcium Level 7.9L, Corrected Calcium 9.2, Total Bilirubin 1.4H, Aspartate Amino Transf (AST/SGOT) 123H, Alanine Aminotransferase (ALT/SGPT) 44, Alkaline Phosphatase 163H, Total Protein 4.9L, Albumin 2.4L 11/20/21 06:24: White Blood Count 9.2, Red Blood Count 2.43L, Hemoglobin 7.3L, Hematocrit 20*L, Mean Corpuscular Volume 84, Mean Corpuscular Hemoglobin 30, Mean Corpuscular Hemoglobin Concent 36, Red Cell Distribution Width 16.6H, Platelet Count 29*L, Mean Platelet Volume 13.3H, Immature Granulocyte % (Auto) 1, Neutrophils (%) (Auto) 72, Lymphocytes (%) (Auto) 13, Monocytes (%) (Auto) 15H, Eosinophils (%) (Auto) 0, Basophils (%) (Auto) 0, Neutrophils # (Auto) 6.6, Lymphocytes # (Auto) 1.2, Monocytes # (Auto) 1.3H, Eosinophils # (Auto) 0.0, Basophils # (Auto) 0.0, Immature Granulocyte # (Auto) 0.1, Percent Immature Platelet Fraction 12.9H, Phosphorus Level 2.3, Magnesium Level 1.4L Microbiology 11/16/21 Urine Culture - Final, Complete NO GROWTH 11/16/21 MRSA Screen - Final, Complete MRSA not isolated 11/16/21 Blood Culture - Preliminary, Resulted No growth Radiology Date of Exam:11/11/21 CT CHEST/ABDOMEN/PELVIS W EXAMINATION: CT chest, abdomen and pelvis with intravenous contrast. TECHNIQUE: Multiple contiguous axial images were obtained through the chest, abdomen and pelvis after the uneventful administration of intravenous contrast. All CT scans use one or more of the following dose optimizing techniques: Automated exposure control, MA and/or KvP adjustment based on patient size and exam type or iterative reconstruction. HISTORY: Cholangiocarcinoma of biliary tract. COMPARISON: 08/15/2021, 08/31/2021. FINDINGS: Thyroid: The visualized thyroid gland is normal. Mediastinum: Heart size is normal without significant pericardial effusion. Calcifications of the aorta and coronary vessels. Thoracic aorta is normal in caliber. Increasing size of multiple suspicious mediastinal lymph nodes with a patient financial representative left upper mediastinal node measuring up to 2.5 cm in short axis (previously 1.4 cm). A right-sided port catheter is present. Lungs and airways: There are background emphysematous changes of the lungs. There is patchy ground-glass consolidation throughout both lungs. No pleural effusion or pneumothorax. No focal suspicious pulmonary nodule is seen, although evaluation is limited secondary to consolidation. The airways are normal. Solid organs: Nodular morphology of the liver with multiple heterogeneous lesions seen throughout. The largest lesion seen within the superior right hepatic lobe which may demonstrate central necrosis and measures up to 5.7 cm, stable from prior exam. Additional lesions are not significantly changed with less conspicuous appearance of the enhancement seen on prior CT. The gallbladder is normal. There is no biliary ductal dilation. Pancreas is normal. Spleen is normal. Adrenal glands are normal. The kidneys are normal without hydronephrosis. Bowel: The stomach and small bowel are normal without obstruction. Colon is unremarkable. Peritoneum: There is mild ascites. No free air. Multiple enlarged patti hepatis, mesenteric, and retroperitoneal lymph nodes, many of which are slightly decreased in size from prior exam. A patient financial representative lesion within the patti hepatis measures 3.3 x 4.5 cm (previously 4.7 x 4.4 cm, (series 2, image 123)). Vasculature: Calcification of the aorta without aneurysm. Multiple portosystemic collateral varices are present. Musculoskeletal: No suspicious osseous lesion or compression fracture. Pelvis: The prostate gland is normal. The urinary bladder is normal. IMPRESSION: 1. Overall stable appearance of the liver lesions compatible with history of cholangiocarcinoma and likely multiple satellite lesions. 2. Nodular morphology of the liver with sequelae of portal hypertension including portosystemic collateral varices. 3. Slightly decreased size of the patti hepatis, retroperitoneal, and mesenteric lymphadenopathy compared to prior exam. 4. Patchy ground-glass consolidation throughout the lungs, which is concerning for multifocal pneumonia. Dictated by: Dictated on workstation # [id number] Dict: 11/11/21 1305 Trans: 11/11/21 1338 [id number] Interpreted by: MAGALY LOPEZ DO Electronically signed by: MAGALY LOPEZ DO 11/11/21 1333 Assessment/Plan Assessment/Plan Assessment/Plan Metastatic Cholangio/Biliary Cancer Urinary retention Afib, Anemia Pneumonia - resolved Pt has not had urinary problems before and is urinating some on his own, was started on Flomax. I reviewed the recent CT images and urinary bladder looks ok, would hold off on attempting another barbosa placement. He most likely has some bloating from the Liver CA and does have some mild ascites. Monitor abdominal pain and check bladder scans as needed; may have to order US of bladder. EDITA BRICENO DO Nov 20, 2021 16:22
[2021-11-20] MEDS: TAMSULOSIN 0.4 MG (FLOMAX) CAP PO SCH (17:02)
[2021-11-20 19:00] VITALS: BP 101/65
[2021-11-20] MEDS: polyethylene glycoL POWDER 17 GM (MIRALAX) PACK PO SCH (20:46)
[2021-11-20 23:42] VITALS: BP 113/64
[2021-11-21] VITALS (7 sets, daily range): BP systolic 103–129; BP diastolic 60–81
[2021-11-21] MEDS: CEFEPIME INJECTION 1,000 MG in NS (IVPB) 50 ML IV SCH ×2 (01:56→11:05)
[2021-11-21] MEDS: HYDROcodone/APAP 5 MG/325 MG (LORTAB) TAB PO PRN ×2 (01:56→19:50)
[2021-11-21] MEDS ORDERED: diphenhydrAMINE 25 MG TAB (BENADRYL) PO ONE (02:04)
[2021-11-21] MEDS: diphenhydrAMINE 25 MG TAB (BENADRYL) PO PRN ×2 (02:04→19:46)
[2021-11-21 05:11] LABS: BASOPHILS % (AUTO) 0 % (0-10); EOSINOPHILS % (AUTO) 0 % (0-10)
[2021-11-21 05:13] LABS: LYMPHOCYTES % (AUTO) 12 % (12-44); MEAN CORPUSCULAR HEMOGLOBIN 30 pg (25-34); MEAN CORPUSCULAR HGB CONC 36 g/dL (32-36); MEAN CORPUSCULAR VOLUME 84 fL (80-99); MONOCYTES # (AUTO) 1.2 10^3/uL (0.0-1.0); MONOCYTES % (AUTO) 14 % (0-12); NEUTROPHILS % (AUTO) 73 % (42-75); WHITE BLOOD COUNT 8.3 10^3/uL (4.3-11.0)
[2021-11-21 05:16] LABS: HEMATOCRIT 19 % (40-54); HEMOGLOBIN 6.9 g/dL (13.3-17.7); PLATELET COUNT 31 10^3/uL (130-400)
[2021-11-21 05:43] LABS: ALBUMIN 2.4 GM/DL (3.2-4.5); BILIRUBIN,TOTAL 1.4 MG/DL (0.1-1.0); CALCIUM 8.1 MG/DL (8.5-10.1); CREATININE SERUM 1.4 MG/DL (0.60-1.30); MAGNESIUM 1.4 MG/DL (1.6-2.4); PHOSPHORUS 1.9 MG/DL (2.3-4.7); POTASSIUM 4.1 MMOL/L (3.6-5.0); TOTAL PROTEIN 4.9 GM/DL (6.4-8.2)
[2021-11-21] MEDS: BETHANECHOL 10 MG (URECHOLINE) TAB PO SCH ×4 (06:06→19:46)
[2021-11-21] MEDS: predniSONE 20 MG TAB PO SCH (06:06)
--- NOTE | 2021-11-21 06:24 | Progress Note - Hospitalist ---
Subjective HPI/CC On Admission Date Seen by Provider: Nov 21, 2021 Time Seen by Provider: 10:00 Subjective/Events-last exam No major issues Urinary retention is improved on bladder meds Tely maintained No pain Cefepime maintained Hgb 6.9 will check tomorrow to see if needs transfusion Review of Systems General: Fatigue, Malaise Objective Exam Vital Signs Vital Signs Date Time Temp Pulse Resp B/P (MAP) Pulse Ox O2 Delivery O2 Flow Rate FiO2 11/21/21 12:33 102 11/21/21 11:17 36.7 18 115/68 (84) 96 Room Air 11/21/21 07:38 0.00 11/16/21 14:05 21 Capillary Refill : Less Than 3 Seconds General Appearance: No Apparent Distress, WD/WN, Chronically ill Respiratory: Lungs Clear, Normal Breath Sounds Cardiovascular: Regular Rate, Rhythm Neurologic/Psychiatric: Alert, Oriented x3, No Motor/Sensory Deficits, Normal Mood/Affect Results/Procedures Lab Laboratory Tests 11/21/21 05:00 Patient resulted labs reviewed. Assessment/Plan Assessment and Plan Assess & Plan/Chief Complaint Sepsis- Continue Cefepime IVFs discontinued All cultures negative Vitals Stable Thrombocytopenia- Currently stable Holding OAC and Lovenox Dr Craven consulted Permanent atrial fibrillation Cardiology consulted Diltiazem discontinued Metoprolol dose increased by Dr Rothman, will continue to monitor Rate controlled Bilateral pneumonia- breathing much improved Continue Cefepime Continue PO steroids Urinary retention Start on tamsulosin Mediastinal mass Present on PET scan done in August, likely metastatic mass Oncology consulted Dr Alvarez Acute renal failure-Improving IVFs discontinued Chronic normocytic anemia Hyponatremia Monitor and Replace Hypomagnesemia-Currently 1.4 Replace and repeat level Metastatic cholangiocarcinoma Chemotherapy is currently on hold Oncology following Debility-Improving Continue PT Critical Care Critically Ill Patient NILTONDENNIS SWARTZ Nov 21, 2021 06:24
--- NOTE | 2021-11-21 08:11 | Physical Therapy Daily Note ---
PT Daily Note-Current Subjective Upon arrival, pt was sidelying in bed, Pt states he went to sleep around 4 this morning due to chest congestion. Pt agrees to PT. Pain Section J - Health Conditions 1. Rarely or not at all 2. Occasionally 3. Frequently 4. Almost constantly 8. Unable to answer Pain Effect on Sleep: 1 Pain Interference with Therapy: 1 Pain Interference w/Day-to-Day: 1 Mental Status Patient Orientation: Person, Situation Transfers SCALE: Activities may be completed with or without assistive devices. 9-Mljhdmgokt-kkasclt completes the activity by him/herself with no assistance from a helper. 5-Set-up or Clean-up Assistance-helper sets up or cleans up; patient completes activity. Perry assists only prior to or following the activity. 4-Supervision or Touching Assistance-helper provides verbal cues and/or t ouching/steadying and/or contact guard assistance as patient completes activity. Assistance may be provided throughout the activity or intermittently. 3-Partial/Moderate Assistance-helper does LESS THAN HALF the effort. Perry lifts, holds or supports trunk or limbs, but provides less than half the effort. 2-Substantial/Maximal Assistance-helper does MORE THAN HALF the effort. Perry lifts or holds trunk or limbs and provides more than half the effort. 3-Rothulcjb-mcikdw does ALL the effort. Patient does none of the effort to complete the activity. Or, the assistance of 2 or more helpers is required for the patient to complete the activity. If activity was not attempted, code reason: 7-Patient Refused. 9-Not Applicable-not attempted and the patient did not perform the activity before the current illness, exacerbation or injury. 10-Not Attempted due to Environmental Limitations-(lack of equipment, weather restraints, etc.). 88-Not Attempted due to Medical Conditions or Safety Concerns. Roll Left & Right (QC): 6 Sit to Lying (QC): 6 Lying to Sitting/Side of Bed(Q: 6 Sit to Stand (QC): 6 Toilet Transfer (QC): 6 Gait Training Does the Patient Walk?: Yes Distance: 55' Walk 10 feet (QC): 4 Walk 50 ft with 2 Turns(QC): 4 Gait Persons Needed: 1 Gait Assistive Device: FWW Pt ambulated with a slow, but steady GT, pt was supervised/SBA with ambulated, due to fatigue walking a short distance. Pt required seated rest breaks during and after. Pt seated on EOB after ambulation. Exercises Supine Ex: Ankle pumps (20), Heel Slides (15), Straight leg raise (10) Treatments Pt completed all activities listed above. During session, pts RN arrives to give pt meds. Pt used the rest room before walking, did not required assistance. Pt ambulated around halls, required seated rest breaks, once ambulating was finished pt was placed upright in bed. Once PT was concluded, pt had call light and tray in reach and all needs met. Assessment Current Status: Good Progress Pt would benefit from continued PT to improve on strength, and activity tolerance. PT Pants Presser Automatic Goals Fdc Goals PT Fdc Goals Time Frame: Nov 28, 2021 Roll Left & Right (QC): 6 Sit to Lying (QC): 6 Lying-Sitting on Side/Bed(QC): 6 Sit to Stand (QC): 6 Chair/Owh-yh-Ckdqd Xfer(QC): 6 Toilet Transfer (QC): 6 Walk 10 feet (QC): 6 Walk 50ft with 2 Turns (QC): 6 Walk 150 ft (QC): 6 PT Plan Problem List Problem List: Activity Tolerance, Functional Strength Treatment/Plan Treatment Plan: Continue Plan of Care Treatment Plan: Bed Mobility, Education, Functional Activity Landon, Functional Strength, Gait, Safety, Therapeutic Exercise, Transfers Treatment Duration: Nov 28, 2021 Frequency: 6 times per week Estimated Hrs Per Day: .25 hour per day Patient and/or Family Agrees t: Yes Time/GCodes Time In: 0814 Time Out: 0840 Total Billed Treatment Time: 26 Total Billed Treatment 1 EX (2) CEIL DURAN PTA Nov 21, 2021 08:11
[2021-11-21] MEDS: DOCUSATE SODIUM 100 MG (COLACE) CAP PO SCH ×2 (08:21→19:46)
[2021-11-21] MEDS: PANTOPRAZOLE 40 MG (PROTONIX) TAB PO SCH (08:21)
[2021-11-21] MEDS: meTOprolol SUCCINATE 100 MG (TOPROL XL) TAB PO SCH (08:21)
--- NOTE | 2021-11-21 10:09 | Progress Note - Surgery ---
BERTHA SCOTT 11/21/21 1009: Subjective Time Seen by a Provider: 08:40 Subjective/Events-last exam Pt is laying in bed. He is alert and talkative. Denies any current pain other than dull pain in lower abdomen that has been present for some time. He can ambulate the halls and to the restroom. Last BM was 1 day ago. Passed gas while I was in the room. Urinated last night successfully. Reported no redness to the urine. Urination was painful, pt thinks it is related to the two catheter attempts yesterday. Pt reports trouble sleeping due to phlegm last night, benadryl reportedly helped. Review of Systems Pulmonary: No Dyspnea; Cough Cardiovascular: No: Chest Pain, Palpitations Gastrointestinal: Abdominal Pain (mild abdominal tenderness in both lower quadrants); No: Nausea, Vomiting Objective Exam Vital Signs Date Time Temp Pulse Resp B/P (MAP) Pulse Ox O2 Delivery O2 Flow Rate FiO2 11/21/21 08:02 36.7 92 16 119/71 (87) 96 Room Air 11/21/21 08:00 96 Room Air 11/21/21 07:38 96 Room Air 0.00 11/21/21 07:31 36.7 92 18 119/71 (87) 96 Room Air 11/21/21 07:00 85 11/21/21 03:50 36.2 75 16 109/81 (90) 96 Room Air 11/21/21 02:33 36.8 11/21/21 01:56 36.8 11/21/21 01:00 92 11/20/21 23:42 36.8 87 16 113/64 (80) 98 Room Air 11/20/21 21:17 36.7 11/20/21 20:47 36.7 11/20/21 20:39 100 Room Air 2.00 11/20/21 19:00 91 11/20/21 19:00 36.7 85 18 101/65 (77) 100 Room Air 11/20/21 15:13 36.4 83 18 121/68 (85) 98 Room Air 11/20/21 12:56 85 11/20/21 11:20 36.8 92 18 103/63 (76) 95 Room Air I & O 11/21/21 07:00 Intake Total 1550 ml Balance 1550 ml Capillary Refill : Less Than 3 Seconds General Appearance: No Apparent Distress, WD/WN HEENT: PERRL/EOMI; No Scleral Icterus (L), No Scleral Icterus (R) Neck: Normal Inspection, Non Tender, Supple, Lymphadenopathy (L) (palpable lymph node anterior to left scm) Respiratory: Lungs Clear, Normal Breath Sounds, No Accessory Muscle Use Cardiovascular: No Gallop, No Murmur, Irregularly Irregular Peripheral Pulses: 2+ Radial Pulses (R), 2+ Radial Pulses (L) Gastrointestinal: normal bowel sounds, soft, distended (mild), tenderness (mild in both lower quadrants) Extremity: Non Tender, No Calf Tenderness Neurologic/Psychiatric: Alert, Oriented x3, Normal Mood/Affect Skin: Normal Color, Warm/Dry Lymphatic: Other (palpable nontender lymph node anterior to left scm) Results Lab Laboratory Tests 11/21/21 05:00: White Blood Count 8.3, Red Blood Count 2.31L, Hemoglobin 6.9*L, Hematocrit 19*L, Mean Corpuscular Volume 84, Mean Corpuscular Hemoglobin 30, Mean Corpuscular Hemoglobin Concent 36, Red Cell Distribution Width 17.0H, Platelet Count 31*L, M mirian Platelet Volume , Immature Granulocyte % (Auto) 1, Neutrophils (%) (Auto) 73, Lymphocytes (%) (Auto) 12, Monocytes (%) (Auto) 14H, Eosinophils (%) (Auto) 0, Basophils (%) (Auto) 0, Neutrophils # (Auto) 6.0, Lymphocytes # (Auto) 1.0, Monocytes # (Auto) 1.2H, Eosinophils # (Auto) 0.0, Basophils # (Auto) 0.0, Immature Granulocyte # (Auto) 0.1, Percent Immature Platelet Fraction 13.8H, Sodium Level 125*L, Potassium Level 4.1, Chloride Level 100, Carbon Dioxide Level 18L, Anion Gap 7, Blood Urea Nitrogen 50H, Creatinine 1.40H, Estimat Glomerular Filtration Rate 55, BUN/Creatinine Ratio 36, Glucose Level 75, Calcium Level 8.1L, Corrected Calcium 9.4, Phosphorus Level 1.9L, Magnesium Level 1.4L, Total Bilirubin 1.4H, Aspartate Amino Transf (AST/SGOT) 99H, Alanine Aminotransferase (ALT/SGPT) 43, Alkaline Phosphatase 150H, Total Protein 4.9L, Albumin 2.4L Microbiology 11/16/21 Urine Culture - Final, Complete NO GROWTH 11/16/21 MRSA Screen - Final, Complete MRSA not isolated 11/16/21 Blood Culture - Preliminary, Resulted No growth Assessment/Plan Assessment/Plan Assessment/Plan Metastatic Cholangio/Biliary Cancer Urinary retention Afib Anemia Pneumonia - resolved Pt reports successful urination last night with pain due to catheterization a ttempts, continue flomax, consider bladder US if retention resumes and worsens. Currently holding chemo, rate is controlled with metoprolol. Still anemic, could be dilutional or related to carcinoma in biliary tree, continue to monitor. DAQUAN JAVED DO 11/21/21 1325: Subjective Time Seen by a Provider: 11:59 Subjective/Events-last exam Pt seen and examined, denies abdominal pain but has some "discomfort lower down" that is helped by heating pad. He passed some gas and was able to urinate, thinks he is probably not empty, but denies pain from bladder. Review of Systems Pulmonary: No Dyspnea; Cough Cardiovascular: No: Chest Pain, Palpitations Gastrointestinal: No: Nausea, Vomiting Objective Exam General Appearance: No Apparent Distress, WD/WN HEENT: PERRL/EOMI Neck: Lymphadenopathy (L) (palpable lymph node anterior to left scm) Respiratory: Lungs Clear, Normal Breath Sounds, No Accessory Muscle Use Cardiovascular: No Murmur, Irregularly Irregular Gastrointestinal: normal bowel sounds, soft, distended (mild), tenderness (mild in both lower quadrants) Extremity: Non Tender, No Calf Tenderness Neurologic/Psychiatric: Alert, Oriented x3, Normal Mood/Affect Lymphatic: Other (palpable nontender lymph node anterior to left scm) Assessment/Plan Assessment/Plan Assessment/Plan Metastatic Cholangio/Biliary Cancer Urinary retention Afib Anemia Pneumonia - resolved Pt reports successful urination last night with pain due to catheterization attempts, continue flomax, consider bladder US if retention resumes and worsens. Currently holding chemo, rate is controlled with metoprolol. Still anemic, could be dilutional or related to carcinoma in biliary tree, continue to monitor. Supervisory-Addendum Brief Verification & Attestation Participated in pt care: history, MDM, physical Personally performed: exam, history, MDM, supervision of care Care discussed with: Medical Student Procedures: n/a Verification and Attestation of Medical Student E/M Service A medical student performed and documented this service. I then reviewed and verified all information documented by the medical student and made modifications to such information, when appropriate. I personally performed a physical exam, medical decision making and then discussed any differences between the notes and made revisions as necessary to create one note. Daquan Javed , 11/21/21 , 13:25 BERTHA SCOTT Nov 21, 2021 10:09 DAQUAN JAVED DO Nov 21, 2021 13:25
--- NOTE | 2021-11-21 10:54 | Cardiology Progress Note ---
Subjective Date Seen by Provider: Nov 21, 2021 Time Seen by Provider: 10:51 Subjective/Events-last exam Patient was seen at bedside, complain of generalized weakness, cough. No chest pain Review of Systems General: No Chills, No Night Sweats; Fatigue, Malaise; No Appetite, No Other HEENT: No Head Aches, No Visual Changes, No Eye Pain, No Ear Pain, No Dysphasia, No Sinus Congestion, No Post Nasal Drip, No Sore Throat, No Other Pulmonary: Dyspnea; No Cough, No Pleuritic Chest Pain, No Other Cardiovascular: No: Chest Pain, Palpitations, Orthopnea, Paroxysmal Noc. Dyspnea, Edema, Lt Headedness, Other Objective-Cardiology Exam Last Set of Vital Signs Vital Signs 11/16/21 11/21/21 11/21/21 14:05 07:38 08:02 Temp 36.7 Pulse 92 Resp 16 B/P (MAP) 119/71 (87) Pulse Ox 96 O2 Delivery Room Air O2 Flow Rate 0.00 FiO2 21 I&O Intake and Output 11/21/21 00:00 Intake Total 1500 ml Output Total 275 ml Balance 1225 ml Intake Oral 1350 ml IV Total 150 ml Output Urine Total 275 ml # Voids 2 # Bowel Movements 1 General: Alert, Oriented X3, No Acute Distress Lungs: Clear to Auscultation, Normal Air Movement Heart: Regular Rate, No Murmurs Abdomen: Normal Bowel Sounds, Soft, Other (RUQ ttp, no rebound but has mild guarding with deep palpation) Extremities: No Clubbing, No Cyanosis, Other (2+ pitting edema) Skin: No Rashes Neuro: Normal Speech Psych/Mental Status: Mood NL Results Lab Laboratory Tests 11/21/21 05:00 A/P-Cardiology Admission Diagnosis Paroxysmal atrial fibrillation Metastatic cholangiocarcinoma Hypertension Anemia Assessment/Plan Paroxysmal atrial fibrillation, rate is controlled Tolerating metoprolol well, currently off diltiazem Cannot tolerate oral anticoagulation due to severe anemia Pancytopenia, anemia and thrombocytopenia Followed and managed by primary care physician Metastatic cholangiocarcinoma, last chemotherapy was on November 09, 2021, following with Dr. Hercules as an outpatient Pneumonia, sepsis, managed by primary care physician Acute renal insufficiency, receiving IV fluid, managed by primary care physician Hypertension, monitor blood pressure KELVIN NOEL MD Nov 21, 2021 10:54
[2021-11-21] MEDS ORDERED: LORATADINE (CLARITIN) 10 MG TAB PO ONE (11:30)
[2021-11-21] MEDS: TAMSULOSIN 0.4 MG (FLOMAX) CAP PO SCH (16:48)
[2021-11-21] MEDS: polyethylene glycoL POWDER 17 GM (MIRALAX) PACK PO SCH (19:46)
[2021-11-22 03:27] VITALS: BP 137/85
[2021-11-22] MEDS: BETHANECHOL 10 MG (URECHOLINE) TAB PO SCH ×4 (04:51→19:59)
[2021-11-22] MEDS: HYDROcodone/APAP 5 MG/325 MG (LORTAB) TAB PO PRN ×2 (04:51→19:55)
[2021-11-22 04:54] LABS: BASOPHILS % (AUTO) 0 % (0-10); EOSINOPHILS % (AUTO) 0 % (0-10)
[2021-11-22 04:56] LABS: HEMOGLOBIN 7.1 g/dL (13.3-17.7); LYMPHOCYTES % (AUTO) 10 % (12-44); MEAN CORPUSCULAR HEMOGLOBIN 31 pg (25-34); MEAN CORPUSCULAR HGB CONC 37 g/dL (32-36); MEAN CORPUSCULAR VOLUME 84 fL (80-99); MEAN PLATELET VOLUME 12.8 fL (9.0-12.2); MONOCYTES # (AUTO) 1.3 10^3/uL (0.0-1.0); MONOCYTES % (AUTO) 13 % (0-12); NEUTROPHILS # (AUTO) 7.3 10^3/uL (1.8-7.8); NEUTROPHILS % (AUTO) 76 % (42-75); PLATELET COUNT 50 10^3/uL (130-400); WHITE BLOOD COUNT 9.6 10^3/uL (4.3-11.0)
[2021-11-22 05:00] LABS: HEMATOCRIT 19 % (40-54)
[2021-11-22 05:07] LABS: ALBUMIN 2.5 GM/DL (3.2-4.5)
[2021-11-22 05:08] LABS: POTASSIUM 3.9 MMOL/L (3.6-5.0)
[2021-11-22 05:10] LABS: TOTAL PROTEIN 5.2 GM/DL (6.4-8.2)
[2021-11-22 05:12] LABS: BILIRUBIN,TOTAL 1.4 MG/DL (0.1-1.0)
[2021-11-22 05:14] LABS: CREATININE SERUM 1.31 MG/DL (0.60-1.30)
[2021-11-22] MEDS: predniSONE 20 MG TAB PO SCH (06:14)
[2021-11-22 07:23] VITALS: BP 125/82
[2021-11-22 07:46] VITALS: BP 125/82
--- NOTE | 2021-11-22 07:49 | Progress Note - Surgery ---
BERTHA SCOTT 11/22/21 0749: Subjective Date Seen by a Provider: Nov 22, 2021 Time Seen by a Provider: 07:44 Subjective/Events-last exam Pt is lying in bed comfortably and able to answer all my questions. He is not complaining of any pain or problems. He urinated this AM but was unsure of the time or amount drained. I&O reports reveal about a 250 ml of urine out. Pt says he felt empty after the urination. Pt told me he could not remember if he had a BM yesterday but knows he had one the day before. Pt can ambulate to restroom and to the halls. He denied any suprapubic tenderness, dysuria, and hematuria. Pt has mild intermittent cough and also reports mild tenderness in both lower quadrants, not acute. Review of Systems General: No Chills, No Night Sweats Pulmonary: No Dyspnea; Cough (intermittent cough) Cardiovascular: No: Chest Pain, Orthopnea Gastrointestinal: No: Nausea, Vomiting Genitourinary: No Dysuria, No Hematuria Neurological: No: Change in speech, Confusion Objective Exam Vital Signs Date Time Temp Pulse Resp B/P (MAP) Pulse Ox O2 Delivery O2 Flow Rate FiO2 11/22/21 07:23 37.0 80 18 125/82 (96) 96 Room Air 11/22/21 07:00 104 11/22/21 03:27 36.6 91 18 137/85 (102) 93 Room Air 11/22/21 01:00 93 11/21/21 23:04 36.9 89 18 129/79 (96) 93 Room Air 11/21/21 20:00 96 Room Air 11/21/21 19:32 36.6 98 20 113/76 (88) 97 Room Air 11/21/21 19:00 106 11/21/21 15:29 36.9 100 19 103/60 (74) 98 Room Air 11/21/21 12:33 102 11/21/21 11:17 36.7 85 18 115/68 (84) 96 Room Air 11/21/21 08:02 36.7 92 16 119/71 (87) 96 Room Air 11/21/21 08:00 96 Room Air I & O 11/22/21 07:00 Intake Total 1120 ml Output Total 500 ml Balance 620 ml Capillary Refill : Less Than 3 Seconds General Appearance: No Apparent Distress, WD/WN, Chronically ill HEENT: PERRL/EOMI; No Scleral Icterus (L), No Scleral Icterus (R) Neck: Non Tender, Supple, Lymphadenopathy (L) (palpable lymph node anterior to left scm) Respiratory: Lungs Clear, Normal Breath Sounds, No Accessory Muscle Use, Other (intermittent cough) Cardiovascular: Regular Rate, Rhythm (pt has history of afib but appears regular this AM), No Murmur Peripheral Pulses: 2+ Radial Pulses (R), 2+ Radial Pulses (L) Gastrointestinal: normal bowel sounds, soft, distended (mild), tenderness (mild in both lower quadrants) Extremity: Non Tender, No Calf Tenderness, Pedal Edema (mild edema at the ankles bl, pt reports this is chronic) Neurologic/Psychiatric: Alert, Oriented x3, No Motor/Sensory Deficits, Normal Mood/Affect Skin: Normal Color, Warm/Dry Lymphatic: Other (palpable nontender lymph node anterior to left scm) Results Lab Laboratory Tests 11/22/21 04:45: White Blood Count 9.6, Red Blood Count 2.31L, Hemoglobin 7.1L, Hematocrit 19*L, Mean Corpuscular Volume 84, Mean Corpuscular Hemoglobin 31, Mean Corpuscular Hemoglobin Concent 37H, Red Cell Distribution Width 16.8H, Platelet Count 50L, Mean Platelet Volume 12.8H, Immature Granulocyte % (Auto) 1, Neutrophils (%) (Auto) 76H, Lymphocytes (%) (Auto) 10L, Monocytes (%) (Auto) 13H, Eosinophils (%) (Auto) 0, Basophils (%) (Auto) 0, Neutrophils # (Auto) 7.3, Lymphocytes # (Auto) 1.0, Monocytes # (Auto) 1.3H, Eosinophils # (Auto) 0.0, Basophils # (Auto) 0.0, Immature Granulocyte # (Auto) 0.1, Percent Immature Platelet Fraction 11.9H, Sodium Level 124*L, Potassium Level 3.9, Chloride Level 100, Carbon Dioxide Level 18L, Anion Gap 6, Blood Urea Nitrogen 50H, Creatinine 1.31H , Estimat Glomerular Filtration Rate 59, BUN/Creatinine Ratio 38, Glucose Level 81, Calcium Level 8.0L, Corrected Calcium 9.2, Phosphorus Level 1.8L, Total Bilirubin 1.4H, Aspartate Amino Transf (AST/SGOT) 96H, Alanine Aminotransferase (ALT/SGPT) 41, Alkaline Phosphatase 144H, Total Protein 5.2L, Albumin 2.5L Microbiology 11/16/21 Urine Culture - Final, Complete NO GROWTH 11/16/21 MRSA Screen - Final, Complete MRSA not isolated 11/16/21 Blood Culture - Final, Complete No growth Assessment/Plan Assessment/Plan Assessment/Plan Metastatic Cholangio/Biliary Cancer Urinary retention- urinated this AM 250 ml, no pain or hematuria Afib Anemia Pneumonia - resolved Pt reports urination sometime this AM with no pain or hematuria. He reports he feels empty after urinating "a lot". Continue flomax and bethanechol and monitor output. Pt does not seem to need catheterization at this time. PNA, afib, and anemia are being managed by medicine, continue to monitor. DAQUAN JAVED DO 11/22/21 1346: Subjective Time Seen by a Provider: 13:31 Subjective/Events-last exam Pt seen and examined, he is still urinating small amounts. He denied any significant abdominal pain. Review of Systems General: No Chills, No Night Sweats; Fatigue Pulmonary: No Dyspnea; Cough (intermittent cough) Cardiovascular: No: Chest Pain, Orthopnea Gastrointestinal: No: Nausea, Vomiting Genitourinary: No Dysuria, No Hematuria; Retention Objective Exam General Appearance: No Apparent Distress, Chronically ill HEENT: PERRL/EOMI Respiratory: Lungs Clear, Normal Breath Sounds, No Accessory Muscle Use, Other (intermittent cough) Cardiovascular: Regular Rate, Rhythm (pt has history of afib but appears regular this AM), No Murmur Gastrointestinal: soft, distended (mild), tenderness (mild in both lower quadrants) Extremity: No Calf Tenderness, Pedal Edema (mild edema at the ankles bl, pt reports this is chronic) Neurologic/Psychiatric: Alert, Oriented x3 Lymphatic: Other (palpable nontender lymph node anterior to left scm) Assessment/Plan Assessment/Plan Assessment/Plan Metastatic Cholangio/Biliary Cancer Urinary retention- urinated this AM 250 ml, no pain or hematuria Afib Anemia Pneumonia - resolved Pt reports urination sometime this AM with no pain or hematuria. He reports he feels empty after urinating "a lot". Continue flomax and bethanechol and monitor output. Pt does not seem to need catheterization at this time. PNA, afib, and anemia are being managed by medicine, continue to monitor. Will sign off and can reconsult or allow Urology to take over. Supervisory-Addendum Brief Verification & Attestation Participated in pt care: history, MDM, physical Personally performed: exam, history, MDM, supervision of care Care discussed with: Medical Student Procedures: n/a Verification and Attestation of Medical Student E/M Service A medical student performed and documented this service. I then reviewed and verified all information documented by the medical student and made modifications to such information, when appropriate. I personally performed a physical exam, medical decision making and then discussed any differences between the notes and made revisions as necessary to create one note. Daquan Javed , 11/22/21 , 13:46 BERTHA SCOTT Nov 22, 2021 07:49 DAQUAN JAVED DO Nov 22, 2021 13:46
--- NOTE | 2021-11-22 07:56 | Progress Note - Hospitalist ---
Subjective HPI/CC On Admission Date Seen by Provider: Nov 22, 2021 Time Seen by Provider: 10:00 Subjective/Events-last exam Doing the same Hgb 7.1 and platelets reviewed Cefepime completed Cough is minimal BM large Voiding much better Review of Systems General: Fatigue, Malaise Pulmonary: Cough Objective Exam Vital Signs Vital Signs Date Time Temp Pulse Resp B/P (MAP) Pulse Ox O2 Delivery O2 Flow Rate FiO2 11/22/21 15:03 37.0 88 16 115/69 (84) 98 Room Air 11/22/21 07:46 21 11/22/21 07:41 0.00 Capillary Refill : Less Than 3 Seconds General Appearance: No Apparent Distress, WD/WN, Chronically ill Respiratory: Lungs Clear, Decreased Breath Sounds Cardiovascular: Regular Rate, Rhythm Neurologic/Psychiatric: Alert, Oriented x3, No Motor/Sensory Deficits, Normal Mood/Affect Results/Procedures Lab Laboratory Tests 11/22/21 04:45 Patient resulted labs reviewed. Assessment/Plan Assessment and Plan Assess & Plan/Chief Complaint Sepsis- Completed Cefepime IVFs discontinued All cultures negative Vitals Stable Thrombocytopenia- Currently stable Holding OAC and Lovenox Dr Craven consulted Permanent atrial fibrillation Cardiology consulted Diltiazem discontinued Metoprolol dose increased by Dr Rothman, will continue to monitor Rate controlled Bilateral pneumonia- breathing much improved Completed Cefepime Continue PO steroids Urinary retention Maintain on tamsulosin, Urecholine Mediastinal mass Present on PET scan done in August, likely metastatic mass Oncology consulted Dr Alvarez Acute renal failure-Improving IVFs discontinued Chronic normocytic anemia Hyponatremia Monitor and Replace Hypomagnesemia- Replace and repeat level Metastatic cholangiocarcinoma Chemotherapy is currently on hold Oncology following Debility-Improving Continue PT Critical Care Critically Ill Patient DENNIS CALLAWAY DO Nov 22, 2021 07:56
[2021-11-22] MEDS: DOCUSATE SODIUM 100 MG (COLACE) CAP PO SCH ×2 (08:55→19:54)
[2021-11-22] MEDS: PANTOPRAZOLE 40 MG (PROTONIX) TAB PO SCH (08:55)
[2021-11-22] MEDS: meTOprolol SUCCINATE 100 MG (TOPROL XL) TAB PO SCH (08:55)
[2021-11-22] MEDS: LORATADINE (CLARITIN) 10 MG TAB PO SCH (08:55)
--- NOTE | 2021-11-22 10:14 | Cardiology Progress Note ---
Subjective Date Seen by Provider: Nov 22, 2021 Time Seen by Provider: 10:13 Subjective/Events-last exam Patient was seen at bedside, laying down comfortably. Feeling better today. Review of Systems General: No Chills, No Night Sweats; Fatigue; No Malaise, No Appetite, No Other HEENT: No Head Aches, No Visual Changes, No Eye Pain, No Ear Pain, No Dysphasia, No Sinus Congestion, No Post Nasal Drip, No Sore Throat, No Other Pulmonary: Dyspnea; No Cough, No Pleuritic Chest Pain, No Other Cardiovascular: No: Chest Pain, Palpitations, Orthopnea, Paroxysmal Noc. Dyspnea, Edema, Lt Headedness, Other Objective-Cardiology Exam Last Set of Vital Signs Vital Signs 11/22/21 11/22/21 11/22/21 11/22/21 07:23 07:41 07:46 08:00 Temp 37.0 Pulse 93 Resp 18 B/P (MAP) 125/82 (96) Pulse Ox 92 O2 Delivery Room Air O2 Flow Rate 0.00 FiO2 21 I&O Intake and Output 11/22/21 00:00 Intake Total 1120 ml Output Total 250 ml Balance 870 ml Intake Oral 1020 ml IV Total 100 ml Output Urine Total 250 ml Bladder Scan Volume Amount 322 ml 256 ml # Voids 6 # Bowel Movements 3 General: Alert, Oriented X3, No Acute Distress HEENT: Atraumatic Neck: Supple Lungs: Clear to Auscultation, Normal Air Movement Heart: Regular Rate, Normal S1, Normal S2, No Murmurs Abdomen: Normal Bowel Sounds, Soft, Other (RUQ ttp, no rebound but has mild guarding with deep palpation) Extremities: No Clubbing, No Cyanosis, Other (2+ pitting edema) Skin: No Rashes Neuro: Normal Speech Psych/Mental Status: Mental Status NL, Mood NL Results Lab Laboratory Tests 11/22/21 04:45 A/P-Cardiology Admission Diagnosis Paroxysmal atrial fibrillation Metastatic cholangiocarcinoma Hypertension Anemia Assessment/Plan Paroxysmal atrial fibrillation, rate is controlled Tolerating metoprolol well, currently off diltiazem Cannot tolerate oral anticoagulation due to severe anemia Pancytopenia, anemia and thrombocytopenia Followed and managed by primary care physician Metastatic cholangiocarcinoma, last chemotherapy was on November 09, 2021, following with Dr. Hercules as an outpatient Pneumonia, sepsis, managed by primary care physician Acute renal insufficiency, receiving IV fluid, managed by primary care physician Hypertension, monitor blood pressure KELVIN NOEL MD Nov 22, 2021 10:14
[2021-11-22 11:07] VITALS: BP 122/79
[2021-11-22] MEDS ORDERED: SODIUM CHLORIDE 1 GM TABLET PO ONE (12:00)
[2021-11-22 15:03] VITALS: BP 115/69
[2021-11-22] MEDS: TAMSULOSIN 0.4 MG (FLOMAX) CAP PO SCH (17:08)
[2021-11-22 19:26] VITALS: BP 106/67
[2021-11-22] MEDS: SODIUM CHLORIDE 1 GM TABLET PO SCH (19:55)
[2021-11-22] MEDS: polyethylene glycoL POWDER 17 GM (MIRALAX) PACK PO SCH (19:59)
[2021-11-23 00:01] VITALS: BP 108/66
[2021-11-23 03:40] VITALS: BP 121/81
[2021-11-23] MEDS: BETHANECHOL 10 MG (URECHOLINE) TAB PO SCH ×2 (05:46→10:55)
[2021-11-23 05:57] LABS: BASOPHILS % (AUTO) 0 % (0-10); EOSINOPHILS # (AUTO) 0.1 10^3/uL (0.0-0.3); EOSINOPHILS % (AUTO) 1 % (0-10); LYMPHOCYTES % (AUTO) 10 % (12-44); MEAN CORPUSCULAR HEMOGLOBIN 31 pg (25-34); MEAN CORPUSCULAR HGB CONC 37 g/dL (32-36); MEAN CORPUSCULAR VOLUME 84 fL (80-99); MEAN PLATELET VOLUME 12.2 fL (9.0-12.2); MONOCYTES # (AUTO) 1.4 10^3/uL (0.0-1.0); MONOCYTES % (AUTO) 15 % (0-12); NEUTROPHILS # (AUTO) 7.1 10^3/uL (1.8-7.8); NEUTROPHILS % (AUTO) 74 % (42-75); WHITE BLOOD COUNT 9.6 10^3/uL (4.3-11.0)
[2021-11-23 05:59] LABS: HEMATOCRIT 19 % (40-54)
[2021-11-23 06:00] LABS: PLATELET COUNT 75 10^3/uL (130-400)
[2021-11-23 06:20] LABS: ALBUMIN 2.5 GM/DL (3.2-4.5)
[2021-11-23 06:23] LABS: TOTAL PROTEIN 5.2 GM/DL (6.4-8.2)
[2021-11-23 06:25] LABS: BILIRUBIN,TOTAL 1.5 MG/DL (0.1-1.0)
[2021-11-23 06:26] LABS: CREATININE SERUM 1.13 MG/DL (0.60-1.30)
[2021-11-23 07:20] VITALS: BP 131/82
[2021-11-23] MEDS: SODIUM CHLORIDE 1 GM TABLET PO SCH (08:12)
[2021-11-23] MEDS: DOCUSATE SODIUM 100 MG (COLACE) CAP PO SCH (08:13)
[2021-11-23] MEDS: PANTOPRAZOLE 40 MG (PROTONIX) TAB PO SCH (08:13)
[2021-11-23] MEDS: meTOprolol SUCCINATE 100 MG (TOPROL XL) TAB PO SCH (08:13)
[2021-11-23] MEDS: LORATADINE (CLARITIN) 10 MG TAB PO SCH (08:13)
--- NOTE | 2021-11-23 08:29 | Cardiology Progress Note ---
Progress Note-Cardiology Events since last exam Date Seen by Provider: Nov 23, 2021 Time Seen by Provider: 08:28 Events since last exam I am following him due to permanent atrial fibrillation. He has been having some sinus congestion. He has been ambulating in the halls with assistance and gets slightly short of breath. He denies chest pain, palpitations, syncope, or ankle edema. Certain portions of this document may have been dictated utilizing voice recognition technology. Inherent to this technology, typographical and grammatical errors may exist. As much as I am diligent to identify and correct these mistakes, some errors may remain in the document. Vitals Last set of Vitals Signs Vital Signs 11/22/21 11/23/21 11/23/21 07:46 07:20 08:00 Temp 36.2 Pulse 101 Resp 18 B/P (MAP) 131/82 (98) Pulse Ox 97 O2 Delivery Room Air O2 Flow Rate 0.00 FiO2 21 Labs Labs Laboratory Tests 11/23/21 05:50 11/23/21 06:00 Exam Vital Signs Vital Signs Date Time Temp Pulse Resp B/P (MAP) Pulse Ox O2 Delivery O2 Flow Rate FiO2 11/23/21 08:00 97 Room Air 0.00 11/23/21 07:20 36.2 101 18 131/82 (98) 11/22/21 07:46 21 Physical Exam General: Alert. No acute distress. He appears chronically ill and older than his stated age. Eye: No xanthelasma. HENT: Normocephalic. Neck: Jugular venous pressure does not appear elevated. Respiratory: Lungs are clear to auscultation. Respirations are non-labored. Breath sounds are equal. Symmetrical chest wall expansion. Cardiovascular: Normal rate. Irregular rhythm. No murmur. No gallop. No edema. Gastrointestinal: Soft. Normal bowel sounds. Skin: Warm. Dry. Neurologic: Alert and oriented to person, place, time. Cranial nerves 3-11 grossly intact. Psychiatric: Cooperative. Appropriate mood & affect. Labs Laboratory Tests Test 11/23/21 05:50 11/23/21 06:00 Range/Units White Blood Count 9.6 4.3-11.0 10^3/uL Red Blood Count 2.25 L 4.30-5.52 10^6/uL Hemoglobin 7.0 L 13.3-17.7 g/dL Hematocrit 19 *L 40-54 % Mean Corpuscular Volume 84 80-99 fL Mean Corpuscular Hemoglobin 31 25-34 pg Mean Corpuscular Hemoglobin Concent 37 H 32-36 g/dL Red Cell Distribution Width 16.8 H 10.0-14.5 % Platelet Count 75 L 130-400 10^3/uL Mean Platelet Volume 12.2 9.0-12.2 fL Immature Granulocyte % (Auto) 1 % Neutrophils (%) (Auto) 74 42-75 % Lymphocytes (%) (Auto) 10 L 12-44 % Monocytes (%) (Auto) 15 H 0-12 % Eosinophils (%) (Auto) 1 0-10 % Basophils (%) (Auto) 0 0-10 % Neutrophils # (Auto) 7.1 1.8-7.8 10^3/uL Lymphocytes # (Auto) 1.0 1.0-4.0 10^3/uL Monocytes # (Auto) 1.4 H 0.0-1.0 10^3/uL Eosinophils # (Auto) 0.1 0.0-0.3 10^3/uL Basophils # (Auto) 0.0 0.0-0.1 10^3/uL Immature Granulocyte # (Auto) 0.1 0.0-0.1 10^3/uL Percent Immature Platelet Fraction 9.8 H 0.0-7.6 % Phosphorus Level 2.0 L 2.3-4.7 MG/DL Sodium Level 125 *L 135-145 MMOL/L Potassium Level 4.0 3.6-5.0 MMOL/L Chloride Level 99 98-107 MMOL/L Carbon Dioxide Level 18 L 21-32 MMOL/L Anion Gap 8 5-14 MMOL/L Blood Urea Nitrogen 47 H 7-18 MG/DL Creatinine 1.13 0.60-1.30 MG/DL Estimat Glomerular Filtration Rate 71 BUN/Creatinine Ratio 42 Glucose Level 81 70-105 MG/DL Calcium Level 8.0 L 8.5-10.1 MG/DL Corrected Calcium 9.2 8.5-10.1 MG/DL Total Bilirubin 1.5 H 0.1-1.0 MG/DL Aspartate Amino Transf (AST/SGOT) 85 H 5-34 U/L Alanine Aminotransferase (ALT/SGPT) 39 0-55 U/L Alkaline Phosphatase 166 H 40-136 U/L Total Protein 5.2 L 6.4-8.2 GM/DL Albumin 2.5 L 3.2-4.5 GM/DL Diagnosis/Problems Diagnosis/Problems (1) Permanent atrial fibrillation Assessment & Plan: He has permanent atrial fibrillation and presented with tachycardia. This may have been related to sepsis. His heart rate initially improved with intravenous diltiazem. I doubled his dose of metoprolol succinate and he was able to wean off diltiazem. His heart rates have been better over the past few days. Xarelto is still on hold due to thrombocytopenia. His platelets are now trending upwards. If and when we do decide to restart Xarelto today, he would need the renal adjusted dose due to creatinine clearance less than 50. (2) Primary hypertension Assessment & Plan: His blood pressure has been reasonably good despite the h igher dose of metoprolol. (3) Acute kidney injury Assessment & Plan: Most likely due to sepsis. He received intravenous fluids which were stopped after he received approximately 3 L. His renal function improved. We will need to watch this closely. (4) Pancytopenia Assessment & Plan: I suspect this is related to the chemotherapy he received about 2 weeks ago. He has been seen by hematology. I may consider restarting Xarelto on 11/24. (5) Sepsis Status: Acute Assessment & Plan: This appears to be due to pneumonia. The hospitalist is managing this condition. This seems to be improving. 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 As above, he has been seen by hematology/oncology. Problem Qualifiers (1) Sepsis: Sepsis type: sepsis due to unspecified organism Sepsis acute organ dysfunction status: with acute organ dysfunction Severe sepsis acute organ dysfunction type: acute renal failure Acute renal failure type: unspecified Severe sepsis shock status: without septic shock Qualified Codes: A41.9 - Sepsis, unspecified organism; R65.20 - Severe sepsis without septic shock; N17.9 - Acute kidney failure, unspecified SAUL CHOWDHURY JR, MD Nov 23, 2021 08:29
--- NOTE | 2021-11-23 10:22 | Physical Therapy Progress Note ---
Therapy Progress Note Patient is up independently in room and ambulates independently in hallway with FWW. RN notified that PT will dismiss patient from services at this time. Patient and RN agree. 1 visit SADA SRIVASTAVA PT Nov 23, 2021 10:22
[2021-11-23] MEDS ORDERED: ONDA8TAB13 PO (10:23)
[2021-11-23] MEDS ORDERED: HYDR-3820 PO (10:23)
[2021-11-23] MEDS ORDERED: BTH10T PO (10:23)
[2021-11-23] MEDS ORDERED: NF-NACL1GT PO (10:23)
[2021-11-23] MEDS ORDERED: RIVA20TA PO (10:23)
[2021-11-23] MEDS ORDERED: POLY17PO54 PO (10:23)
[2021-11-23] MEDS ORDERED: MTP100TCR PO (10:23)
[2021-11-23] MEDS ORDERED: TMSL.4C PO (10:23)
--- NOTE | 2021-11-23 10:26 | D/C HH Face to Face Order ---
D/C HH Face to Face Orders Reconcile Patient Problems Problems Reviewed?: Yes Instructions for Patient HH Patient Instructions/FollowUp: Dr Amaya in 1 week Physician to follow Patient: [facility] Discharge Diet for Home: No Restrictions Patient Problems: AF RVR Anemia Thrombocytopenia Patient Data-Allergies,Ht & Wt Patient Allergies: Coded Allergies: No Known Drug Allergies (Unverified , 08/26/21) Height (Feet): 6 Height (Inches): 0 Weight (Pounds): 200 Home Health Need/Face to Face Date of Face to Face: Nov 23, 2021 Clinical Findings: Generalized weakness and fatigue, Muscle weakness I have seen Pt [id number]: Yes Discharged To: Home Diagnosis/Conditions: Debility Patient is Homebound due to: Muscle weakness Homebound Status Due to the above stated illness, injury or surgical procedure (medical condition or diagnosis) and associated clinical findings, the patient is homebound because of his/her inability to leave home except with aid of a suppo rtive device and/or person AND leaving the home requires a considerable and taxing effort or is medically contraindicated. Pt req the following assistanc: [facility] Nursing Orders Home Health Services Order: Nursing Services, Cub Reporter-Evaluate & Treat, Physical Therapy-Evaluate & Treat Home Health Infusion Therapy Line Start Date: Nov 16, 2021 Certify Stmt I certify that this patient is under my care and that I, a nurse practitioner or a physician; a back office medical assistant working with me, had a face to face encounter that - meets the physician face to face encounter requirements with this patient as dated. DENNIS CALLAWAY DO Nov 23, 2021 10:26
--- NOTE | 2021-11-23 11:00 | Progress Note ---
HORACE CERVANTES 11/23/21 1100: Progress Note Mr. Rene Lopez is a 66 year old male with PMH of metastatic cholangiocarcinoma, EtOh cirrohsis, chronic anemia, and atrial fibrillation who presented to the hospital on 11/16/2021 for shortness of breath and fatigue. He recently had a chemotherapy session on 11/09/2021 for his known cholangiocarcinoma. On admission he presented in sepsis with bilateral pneumonia, an elevated CRP and elevated Procal. He completed a 7 day course of Cefepime which improved his breathing and resolved his sepsis. On admission he was also in atrial fibrillation with rapid ventricular response and was started on Cardizem in the emergency department. He eventually was transitioned off Cardizem to Metoprolol Succinate 100 mg daily for rate control. He developed thrombocytopenia and thus his oral anticoagulation and Lovenox prophylaxis was held. He had an acute kidney injury on presentation which improved with gentle IVFs. Additionally he developed concern for urinary retention which improved with the addition of Tamsulosin 0.4mg daily. Throughout his stay he was hyponatremic and started on Sodium Chloride 1 g daily but remained asymptomatic. He is stable for discharge and will have close follow up with his Oncologist. CYNTHIA CALLAWAY DO 11/24/21 0511: Supervisory-Addendum Brief Verification & Attestation Participated in pt care: history, MDM, physical Personally performed: exam, history, MDM, supervision of care Care discussed with: Medical Student Procedures: n/a Results interpretation: Verified all documentation Verification and Attestation of Medical Student E/M Service A medical student performed and documented this service in my presence. I reviewed and verified all information documented by the medical student and made modifications to such information, when appropriate. I personally performed the physical exam and medical decision making. Cynthia Callaway Nov 24, 2021,05:11 HORACE CERVANTES Nov 23, 2021 11:00 CYNTHIA CALLAWAY DO Nov 24, 2021 05:11
[2021-11-23 11:30] VITALS: BP 102/63
[2021-11-23 12:35] VITALS: BP 102/63
--- NOTE | 2021-11-24 05:26 | Discharge Summary ---
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 Rene Lopez is a 66 year old male with PMH of metastatic cholangiocarcinoma, EtOh cirrohsis, chronic anemia, and atrial fibrillation who presented to the hospital on 11/16/2021 for shortness of breath and fatigue. He recently had a chemotherapy session on 11/09/2021 for his known cholangiocarcinom a. On admission he presented in sepsis with bilateral pneumonia, an elevated CRP and elevated Procal. He completed a 7 day course of Cefepime which improved his breathing and resolved his sepsis. On admission he was also in atrial fibrillation with rapid ventricular response and was started on Cardizem in the emergency department. He eventually was transitioned off Cardizem to Metoprolol Succinate 100 mg daily for rate control. He developed thrombocytopenia and thus his oral anticoagulation and Lovenox prophylaxis was held. He had an acute kidney injury on presentation which improved with gentle IVFs. Additionally he developed concern for urinary retention which improved with the addition of Tamsulosin 0.4mg daily. Throughout his stay he was hyponatremic and started on Sodium Chloride 1 g daily but remained asymptomatic. He is stable for discharge and will have close follow up with his Oncologist. Labs and Pending Lab Test: Laboratory Tests 11/23/21 05:50: White Blood Count 9.6, Red Blood Count 2.25L, Hemoglobin 7.0L, Hematocrit 19*L, Mean Corpuscular Volume 84, Mean Corpuscular Hemoglobin 31, Mean Corpuscular Hemoglobin Concent 37H, Red Cell Distribution Width 16.8H, Platelet Count 75L, Mean Platelet Volume 12.2, Immature Granulocyte % (Auto) 1, Neutrophils (%) (Auto) 74, Lymphocytes (%) (Auto) 10L, Monocytes (%) (Auto) 15H, Eosinophils (%) (Auto) 1, Basophils (%) (Auto) 0, Neutrophils # (Auto) 7.1, Lymphocytes # (Auto) 1.0, Monocytes # (Auto) 1.4H, Eosinophils # (Auto) 0.1, Basophils # (Auto) 0.0, Immature Granulocyte # (Auto) 0.1, Percent Immature Platelet Fraction 9.8H, Phosphorus Level 2.0L 11/23/21 06:00: Sodium Level 125*L, Potassium Level 4.0, Chloride Level 99, Carbon Dioxide Level 18L, Anion Gap 8, Blood Urea Nitrogen 47H, Creatinine 1.13, Estimat Glomerular Filtration Rate 71, BUN/Creatinine Ratio 42, Glucose Level 81, Calcium Level 8.0L, Corrected Calcium 9.2, Total Bilirubin 1.5H, Aspartate Amino Transf (AST/SGOT) 85H, Alanine Aminotransferase (ALT/SGPT) 39, Alkaline Phosphatase 166H, Total Protein 5.2L, Albumin 2.5L Microbiology 11/16/21 Urine Culture - Final, Complete NO GROWTH 11/16/21 MRSA Screen - Final, Complete MRSA not isolated 11/16/21 Blood Culture - Final, Complete No growth Home Meds Active Polyethylene Glycol 3350 17 Gram Powd.pack 17 Gm PO HS Sodium Chloride 1 Gram Tab 1 Gm PO BID Metoprolol Succinate 100 Mg Tab.er.24h 100 Mg PO DAILY Flomax (Tamsulosin HCl) 0.4 Mg Cap 0.4 Mg PO DAILY@1800 Urecholine (Bethanechol Chloride) 10 Mg Tablet 10 Mg PO ACHS Hydrocodone-Acetamin 10-325 mg (Hydrocodone/Acetaminophen) 10 Mg-325 Mg Tablet 1 Each PO TID PRN Xarelto (Rivaroxaban) 20 Mg Tablet 20 Mg PO DAILY 7 Days hold until discussing with dr martin and needs lower dose Ondansetron Odt (Ondansetron) 8 Mg Tab.rapdis 8 Mg PO Q6H PRN Reported Ms Contin (Morphine Sulfate) 15 Mg Tablet.er 15 Mg PO Q12H PRN Assessment/Pt Instructions Oncology follow-up Discharge Planning: <30 minutes discharge planning Discharge Physical Examination Vital Signs Vital Signs Date Time Temp Pulse Resp B/P (MAP) Pulse Ox O2 Delivery O2 Flow Rate FiO2 11/23/21 12:35 36.9 96 18 102/63 98 Room Air 0.00 10/2/22 07:46 21 General Appearance: No Apparent Distress, WD/WN, Chronically ill, Thin Allergies: Coded Allergies: No Known Drug Allergies (Unverified , 08/26/21) Discharge Summary Date of Admission Nov 16, 2021 at 11:56 Date of Discharge Nov 23, 2021 at 12:35 Discharge Date: Nov 23, 2021 Discharge Diagnosis Sepsis- Completed Cefepime IVFs discontinued All cultures negative Vitals Stable Thrombocytopenia- Currently stable Holding OAC and Lovenox Dr Craven consulted Permanent atrial fibrillation Cardiology consulted Diltiazem discontinued Metoprolol dose increased by Dr Rothman, will continue to monitor Rate controlled Bilateral pneumonia- breathing much improved Completed Cefepime Continue PO steroids Urinary retention Maintain on tamsulosin, Urecholine Mediastinal mass Present on PET scan done in August, likely metastatic mass Oncology consulted Dr Alvarez Acute renal failure-Improving IVFs discontinued Chronic normocytic anemia Hyponatremia Monitor and Replace Hypomagnesemia- Replace and repeat level Metastatic cholangiocarcinoma Chemotherapy is currently on hold Oncology following Debility-Improving Continue PT (1) Permanent atrial fibrillation Assessment & Plan: He has permanent atrial fibrillation and presented with tachycardia. This may have been related to sepsis. His heart rate initially improved with intravenous diltiazem. I doubled his dose of metoprolol succinate and he was able to wean off diltiazem. His heart rates have been better over the past few days. Xarelto is still on hold due to thrombocytopenia. His platelets are now trending upwards. If and when we do decide to restart Xarelto today, he would need the renal adjusted dose due to creatinine clearance less than 50. (2) Primary hypertension Assessment & Plan: His blood pressure has been reasonably good despite the higher dose of metoprolol. (3) Acute kidney injury Assessment & Plan: Most likely due to sepsis. He received intravenous fluids which were stopped after he received approximately 3 L. His renal function improved. We will need to watch this closely. (4) Pancytopenia Assessment & Plan: I suspect this is related to the chemotherapy he received about 2 weeks ago. He has been seen by hematology. I may consider restarting Xarelto on 11/24. (5) Sepsis Status: Acute Assessment & Plan: This appears to be due to pneumonia. The hospitalist is managing this condition. This seems to be improving. 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 As above, he has been seen by hematology/oncology. DENNIS CALLAWAY DO Nov 24, 2021 05:26
== END 2021-11-23 12:35 | disposition home health service (06) | DRG 871 ==
LOC: EDUNIT# 09:01 → ER 09:03 → ICU 11:56 → 4TH 11-18 13:50
PROVIDERS: ADMIT Family Medicine; ATTEND Internal Medicine
DX: A41.9 Sepsis, unspecified organism (principal); D61.810 Antineoplastic chemotherapy induced pancytopenia; J18.9 Pneumonia, unspecified organism; N17.9 Acute kidney failure, unspecified; C22.1 Intrahepatic bile duct carcinoma; C77.1 Secondary and unspecified malignant neoplasm of intrathoracic lymph nodes; I48.21 Permanent atrial fibrillation; Z66 Do not resuscitate; J44.0 Chronic obstructive pulmonary disease with (acute) lower respiratory infection; E87.1 Hypo-osmolality and hyponatremia; T45.1X5A Adverse effect of antineoplastic and immunosuppressive drugs, initial encounter; K70.30 Alcoholic cirrhosis of liver without ascites; E78.00 Pure hypercholesterolemia, unspecified; K21.9 Gastro-esophageal reflux disease without esophagitis; E83.42 Hypomagnesemia; R33.9 Retention of urine, unspecified; D64.9 Anemia, unspecified; Z79.01 Long term (current) use of anticoagulants; Z79.82 Long term (current) use of aspirin; Z87.891 Personal history of nicotine dependence; Z89.021 Acquired absence of right finger(s)
CPT/HCPCS: 36415; 71045; 80053; 81000; 83605; 83735; 83880; 84100; 84145; 84484; 85007; 85025; 85027; 85610; 85730; 86141; 86850; 86900; 86901; 87040; 87070; 87081; 87088; 87205; 93005; 94640; 94664; 94760; 96374; 96375

== ENCOUNTER 2021-12-07 11:12 | Outpatient (RCR) | payer MEDICARE, OTHER ==
[2021-11-30 10:08] LABS: BASOPHILS # (AUTO) 0.1 10^3/uL (0.0-0.1); BASOPHILS % (AUTO) 1 % (0-10); EOSINOPHILS # (AUTO) 0.3 10^3/uL (0.0-0.3); EOSINOPHILS % (AUTO) 3 % (0-10); HEMATOCRIT 27 % (40-54); HEMOGLOBIN 9.1 g/dL (13.3-17.7); LYMPHOCYTES # (AUTO) 2.6 10^3/uL (1.0-4.0); LYMPHOCYTES % (AUTO) 20 % (12-44); MEAN CORPUSCULAR HEMOGLOBIN 31 pg (25-34); MEAN CORPUSCULAR HGB CONC 34 g/dL (32-36); MEAN CORPUSCULAR VOLUME 92 fL (80-99); MEAN PLATELET VOLUME 10.3 fL (9.0-12.2); MONOCYTES # (AUTO) 2.3 10^3/uL (0.0-1.0); MONOCYTES % (AUTO) 17 % (0-12); NEUTROPHILS # (AUTO) 7.6 10^3/uL (1.8-7.8); NEUTROPHILS % (AUTO) 59 % (42-75); PLATELET COUNT 340 10^3/uL (130-400)
[2021-11-30 10:22] LABS: INR 1.2 (0.8-1.4); PROTHROMBIN TIME PATIENT 15.5 SEC (12.2-14.7)
[2021-11-30 10:28] LABS: ALBUMIN 2.7 GM/DL (3.2-4.5); BILIRUBIN,TOTAL 1.5 MG/DL (0.1-1.0); CALCIUM 8.1 MG/DL (8.5-10.1); CREATININE SERUM 1.13 MG/DL (0.60-1.30); POTASSIUM 4.2 MMOL/L (3.6-5.0); TOTAL PROTEIN 5.8 GM/DL (6.4-8.2)
[~2021-12-07 11:12] MED LIST changes: +BTH10T PO; +MORP-68 PO; +MTP100TCR PO; +NF-NACL1GT PO; +ONDA8TAB13 PO; +POLY17PO54 PO; +RIVA20TA PO; +TMSL.4C PO
== END 2021-12-21 | disposition home or self-care (01) ==
LOC: ONC 11:12
PROVIDERS: ATTEND Internal Medicine
DX: C24.9 Malignant neoplasm of biliary tract, unspecified (principal); C79.9 Secondary malignant neoplasm of unspecified site; K70.30 Alcoholic cirrhosis of liver without ascites
CPT/HCPCS: 36415; 80053; 85025; 85610; 85730; 99213